=== PATIENT | female | born 1960 | race Caucasian/White ===

== ENCOUNTER 2017-12-10 12:19 | Inpatient (IN) | payer BC ==
[2017-12-10] MEDS ORDERED: Albuterol Sulfate 2.5 mg/3 ml Neb ONE ×2 (12:48→14:34)
[2017-12-10] MEDS ORDERED: Albuterol Sulfate 2.5 mg/0.5 ml Neb ONE ×2 (12:48→14:34)
--- NOTE | 2017-12-10 13:36 | PDOC.FPRHP ---
- History of Present Illness Chief Complaint: SOB, wheezing History of Present Illness: 57 yo F w/ PMH of asthma and DMII presents for acute exacerbation of asthma. Pt reports increased wheezing and sob starting on Sunday and progressively worsening throughout the week. She notes associated fever of 100.2, cough ( occasionally productive of brown tinged sputum), vertiginous type symptoms over the last day, decreased PO intake today, reports some nausea today. Also reports pain with deep inspiration (burning in quality) and pain with cough. She denies chest pain, vomiting, diarrhea, constipation. She has never been hospitalized for asthma in the past and only respiratory hospital admission was 2/2 H1N1 influenza several years ago. Only takes a rescue inhaler prn for asthma. ED Course: 600mg Clindamycin, 2gm mag sulfate, 200mg tessalon perles, azithromycin 500mg, 10mg decadron, 125mg solumedrol, Duonebs X3, albuterol x2. - Allergies/Adverse Reactions Allergies Allergy/AdvReac Type Severity Reaction Status Date / Time amoxicillin Allergy Verified 12/10/17 14:10 hydromorphone [From Dilaudid] Allergy Verified 12/10/17 14:10 morphine Allergy Verified 12/10/17 14:10 - Home Medications Medication Instructions Recorded Confirmed Type Albuterol Sulfate [Proair HFA] 2 puff INH Q4HR PRN 12/10/17 12/10/17 History HumaLOG [HumaLOG] 35 unit SC BID-WM PRN 12/10/17 12/10/17 History Insulin Glargine,Hum.Rec.Anlog 170 unit SQ QAM 12/10/17 12/10/17 History [Bell Castaneda] - History PMHx: Asthma, DMII PSHx: Tonsillectomy, appendectomy FHx: None Social: Denies tobacco, alcohol and drug use - Vital signs BP: 157/74 HR: 78-95 RR: 18-26 Tmax: 99.3 Pox: 93% on RA Wt: 113Kg - Physical Exam Constitutional: awake, alert and oriented HEENT: normocephalic and atraumatic, PERRLA, EOMI, conjunctiva clear, no scleral icterus, grossly normal vision, grossly normal hearing Neck: supple, trachea midline, no LAD, no JVD Chest: no-tender to palpation Heart: RRR, normal S1/S2, no murmurs/rubs/gallops Lungs: other (moderate respiratory distress, accessory mm use, diffuse rhonchi, end expiratory wheezes throughout, unable to communicate in complete sentences, moving air all lung cox) Abdomen: soft, non-tender, bowel sounds present Musculoskeletal: normal structure, ROM grossly normal Neurological: no focal deficit Skin: no rash/lesions, capillary refill <2 seconds, no jaundice Heme/Lymphatic: no unusual bruising or bleeding, no petechia -Psychiatric: Tearful, concerned about elevated blood sugar FMR H&P: Results - Radiology Interpretation Chest x-ray Status: image reviewed by me, report reviewed by me (No acute intrathroacic process) FMR H&P: A/P - Problem List (1) Acute respiratory failure with hypoxia Current Visit: Yes Status: Suspected Code(s): J96.01 - ACUTE RESPIRATORY FAILURE WITH HYPOXIA (2) Asthma exacerbation Current Visit: Yes Status: Ruled-out Code(s): J45.901 - UNSPECIFIED ASTHMA WITH (ACUTE) EXACERBATION (3) DMII (diabetes mellitus, type 2) Current Visit: Yes Status: Acute (4) Elevated blood pressure reading without diagnosis of hypertension Current Visit: Yes Status: Acute Code(s): R03.0 - ELEVATED BLOOD-PRESSURE READING, W/O DIAGNOSIS OF HTN (5) Elevated CK Current Visit: Yes Status: Acute - Plan 1) Acute hypoxic respiratory failure: Suspected. Admit IMCU, Likely 2/2 asthma exacerbation. Pt given mag sulfate, duonebs X4, albuterol nebs X2, solumedrol 125, decadron 10. Will Continue albuterol nebs jennifer q4hr and q2hr PRN. BiPap 2/2 increased wob. ABG pending. Solumedrol 60mg IV q6hr. Continue IV abx, concern for bronchitis. Check procal, chest XR negative for acute intrathoracic process. Pt has had decreased po intake over last 24 hours, IVNS bolus X1. IVF NS @ 150mls/hr 2) Asthma exacerbation: see #1 3) DMII: -Home meds continued, lantus @ 150UQAM, humalog 35U sc BID, Mod SSI, accucheck ACHS 4) Elevated CK: IVF NS 1L bolus, maintenance @ 150mls/hr 5) PPX: Tums prn and scds for GI and DVT ppx, respectively 6) Code status: Full code: pt wishes to be full code. Disposition/LOS: guarded, >/= 2 days FMR H&P: Upper Level - Pertinent history Code status: Full 57F with 5 day history of worsening productive cough, SOB, and dypsnea. She used her rescue inhaler 5 times over the course of Sunday afternoon, and used albuterol nebs q2h all day Sunday. She has had minimal PO intake since the weekend and is extremely fatigued. Her respiratory status acutely worsened this morning and she presented to [facility]. History of asthma that has been well controlled over the last 12 months with Pro-air. ED: clindamycin 600mg, Azithromycin 500mg, Magnesium 2g, Decadron 10mg, Solu- medrol 125mg, Duoneb x 8 - Pertinent findings Vitals: 157/74 mmHg 93 bpm 22 breaths/min 96% on RA 98.1F Physical Exam: Gen: moderate distress 2/2 breathing difficulties; obese Neck: supple; no LAD; trachea midline CV: RRR, no murmurs Pulm: scattered rhonchi; diffuse expiratory wheezes Abd: soft, non-TTP, non-distended; normal bowel sounds Skin: no lesions or rashes Neuro: no focal deficits; normal sensation - Plan Date/Time: 12/10/17 1333 1. Asthma exacerbation: admit inpatient/IMCU, duonebs q4h PRN and albuterol q2h PRN, steroids daily. Continue clindamycin and azithromycin. Patient has had poor PO intake for several day so we will bolus one liter with NS @ 150cc/hr maintenance. ABG pending and BiPAP once she get to the unit 2. DMII: continue home meds of Lantus 160u qAM, humalog 35 BID, SSI 3. CK: one liter fluid bolus with NS maintenance; recheck in the morning I, Nile Lozano, have evaluated this patient and agree with findings/plan as outlined by international student counselor resident. Pertinent changes/additions are listed here.
[2017-12-10 14:36] LABS: Base Excess (BEa) -0.3 mEq/L (0 (+/-) 2.5); CO2 Tension 38.1 mmHg (35.0-45.0); Hemoglobin (Hb) 13.1 g/dL (12.0-16.0); pH, Arterial 7.42 (7.35-7.45)
[2017-12-10 14:37] LABS: Analyzer IN Cardio ER; Calcium, Ionized 1.2 mmol/L (1.12-1.30); Puncture Site RBA
[2017-12-10] MEDS ORDERED: Ondansetron HCl/PF 4 MG/2 ML Vial IVP PRN ×2 (15:12→15:23)
[2017-12-10] MEDS ORDERED: Ondansetron ODT 4 MG TAB SL PRN (15:12)
[2017-12-10] MEDS ORDERED: Albuterol Sulfate 2.5 mg/3 ml Neb NEB PRN ×2 (15:13→15:23)
[2017-12-10] MEDS ORDERED: Dextrose 5% in Water 1,000 ML IV PRN (15:23)
[2017-12-10] MEDS ORDERED: Sodium Chloride 0.9% 1,000 ML IV SCH (15:23)
[2017-12-10] MEDS ORDERED: Ondansetron ODT 4 MG TAB PO PRN (15:23)
[2017-12-10] MEDS ORDERED: Dextrose 50% Abboject 50 ML SYRINGE SLOW IVP PRN (15:23)
[2017-12-10] MEDS ORDERED: HumaLOG 300 UNITS/3 ML VIAL SC PRN (15:23)
[2017-12-10 15:34] VITALS: BMI 45.0
[2017-12-10] MEDS: Sodium Chloride 0.9% 1,000 ML IV SCH ×2 (15:41→23:52)
--- NOTE | 2017-12-10 16:35 | HP ---
HISTORY OF PRESENT ILLNESS: I have reviewed the history and physical of Dr. Willie Chadwick and I espinal ve discussed the assessment and plan with him. I agree with his assessment and plan. I have also di scussed the case with Dr. Nile Lozano. Briefly, Ms. Bird is a 57-year-old white female patient with a history of asthma. She started beco carlos ill 2 days ago and has required almost q.2 hours daily use of her inhaler for the last 24 hours. She presented to the [facility] earlier this morning where she was given further D uoNeb treatments as well as intravenous steroids and intravenous magnesium. She failed to improve si gnificantly and was transported to our emergency room where she has subsequently been admitted. OBJECTIVE: VITAL SIGNS: Her blood pressure is 150/80, her heart rate is 95, respirations are 20. She is afebri le. GENERAL: This is a pleasant female, who is obese, middle-aged, but awake and alert. She does, howev er, appear tired. THROAT: No erythema or exudate. NECK: Supple. CARDIAC: Heart rhythm is regular without gallop or murmur noted. LUNGS: Diffuse expiratory wheezes. Some coarse rhonchi as well. Coarse rales. Use of accessory mu scles intermittently. Nearly continual cough and speaking in complete sentences due to shortness of breath. ABDOMEN: Flat and soft. No guarding, rebound or rigidity. EXTREMITIES: No edema. NEUROLOGIC: No focal deficits. LABORATORY DATA: ABG shows a pH 7.42, pCO2 of 38, pO2 of 178. No other labs available at this time. Chest x-ray shows no acute infiltrates. ASSESSMENT: Exacerbation of asthma. PLAN: Recommend transfer to MICU and begin BiPAP as the patient is still having difficulties despite 2 days of treatment. We will also discuss the case with Pulmonary Medicine and RT.
[2017-12-10] MEDS: HumaLOG 300 UNITS/3 ML VIAL SC SCH (17:07)
[2017-12-10 18:33] LABS: Legionella Urinary Ag Negative (Negative); Strep pneumo Urine Ag NEGATIVE (NEGATIVE)
[2017-12-10] MEDS: Albuterol Sulfate 2.5 mg/3 ml Neb NEB SCH ×2 (18:49→22:38)
[2017-12-11] MEDS: Albuterol Sulfate 2.5 mg/3 ml Neb NEB SCH ×6 (02:28→22:42)
[2017-12-11] MEDS: Sodium Chloride 0.9% 1,000 ML IV SCH ×3 (03:27→21:31)
[2017-12-11 05:57] LABS: Anion Gap 12 mmol/L (10-20); BUN (Urea Nitrogen) 13 mg/dL (9.8-20.1); Calc. Creatinine Clearance 166 mL/min (70-130); Calcium 8.2 mg/dL (7.8-10.44); Carbon Dioxide 22 mmol/L (22-29); Chloride 108 mmol/L (98-107); Estimated GFR-MDRD 81; Glucose 297 mg/dL (70-105); Sodium 138 mmol/L (136-145)
[2017-12-11 06:29] LABS: #Lymphocytes 1.4 thou/uL (1.20-3.40); #Monocytes 0.3 thou/uL (0.11-0.59); #Neutrophils 6.8 thou/uL (1.40-6.50); %Basophils 0.2 % (0.0-1.0); %Eosinophils 0.2 % (0.0-10.0); %Lymphocytes 16.2 % (21.0-51.0); %Monocytes 3.5 % (0.0-10.0); Hemoglobin 12.1 g/dL (12.0-16.0); Mean Corpuscular HGB CONC 32.5 g/dL (32.0-36.0); Mean Corpuscular Hemoglobin 29.1 pg (27.0-31.0); Mean Corpuscular Volume 89.5 fl (81.0-99.0); Mean Platelet Volume 8.2 fL (7.4-10.4); Platelet Count 232 thou/uL (130-400); RBC Distribution Width 13.3 % (11.5-14.5); Red Blood Cell (RBC) Count 4.15 mill/uL (4.20-5.40); White Blood Cell (WBC) Count 8.5 thou/uL (4.8-10.8)
[2017-12-11] MEDS: HumaLOG 300 UNITS/3 ML VIAL SC SCH ×2 (07:56→16:50)
[2017-12-11] MEDS: Azithromycin 500 MG in Sodium Chloride 0.9% 250 ML 250 ML IVPB SCH (07:57)
--- NOTE | 2017-12-11 08:13 | PDOC.FM ---
- Subjective Subjective: No acute events overnight. Pt remained on BiPAP overnight and was able to get some sleep. She reports she is feeling better from a respiratory standpoint. Does reports occasional nausea and persistent cough. Denies chest pain, but does report burning sensation in lungs. Overall, reports improvement from yesterday. - Objective Vital Signs & Weight: Vital Signs (12 hours) Temp Pulse Resp BP Pulse Ox 12/11/17 06:45 96 17 99 12/11/17 06:43 102 H 19 99 12/11/17 06:15 95 18 102/63 97 12/11/17 03:53 97.4 F L 97 13 154/72 H 100 12/11/17 02:28 94 17 98 12/11/17 02:04 94 16 160/70 H 99 12/11/17 00:05 97.5 F L 100 18 138/58 L 99 12/10/17 22:38 102 H 18 100 I&O: 12/10/17 12/11/17 12/12/17 06:59 06:59 06:59 Intake Total 2160 Output Total 250 Balance 1909 Result Diagrams: 12/11/17 04:57 12/11/17 04:57 <Willie Chadwick - Last Filed: 12/11/17 10:52> - Objective Vital Signs & Weight: Vital Signs (12 hours) Temp Pulse Resp BP Pulse Ox 12/11/17 15:46 97.6 F 91 20 146/78 H 100 12/11/17 15:37 93 18 99 12/11/17 12:40 97.5 F L 96 18 136/88 100 12/11/17 11:11 99 12/11/17 10:35 99 24 H 99 12/11/17 08:00 97.8 F 103 H 20 100 12/11/17 07:50 97.8 F 103 H 20 156/72 H 100 12/11/17 06:45 96 17 99 12/11/17 06:43 102 H 19 99 12/11/17 06:15 95 18 102/63 97 I&O: 12/10/17 12/11/17 12/12/17 06:59 06:59 06:59 Intake Total 2160 Output Total 250 Balance 1909 Result Diagrams: 12/11/17 04:57 12/11/17 04:57 <Samy Cohen - Last Filed: 12/11/17 16:58> Phys Exam - Physical Examination Constitutional: NAD BiPAP in place HEENT: PERRLA, moist MMs, sclera anicteric Neck: no nodes, no JVD Respiratory: no rales, no rhonchi, wheezing present inspiratory and expiratory wheezes, all lung cox BiPAP in place Cardiovascular: RRR, no significant murmur, no rub Gastrointestinal: soft, non-tender, no distention, positive bowel sounds Musculoskeletal: no edema, pulses present Neurological: non-focal, normal sensation, moves all 4 limbs Lymphatic: no nodes Skin: no rash, cap refill <2 seconds <Willie Chadwick - Last Filed: 12/11/17 10:52> Dx/Plan (1) Acute respiratory failure with hypoxia Code(s): J96.01 - ACUTE RESPIRATORY FAILURE WITH HYPOXIA Status: Suspected (2) Asthma exacerbation Code(s): J45.901 - UNSPECIFIED ASTHMA WITH (ACUTE) EXACERBATION Status: Ruled- out (3) DMII (diabetes mellitus, type 2) Status: Acute (4) Elevated blood pressure reading without diagnosis of hypertension Code(s): R03.0 - ELEVATED BLOOD-PRESSURE READING, W/O DIAGNOSIS OF HTN Status : Acute (5) Elevated CK Status: Acute - Plan Plan: 1) Acute hypoxic respiratory failure: Resolved. Remain in IMCU. 2/2 increased WOB, continued. 2) Asthma exacerbation: Acute, active. Pt given mag sulfate, duonebs X4, albuterol nebs X2, solumedrol 125, decadron 10. Will Continue albuterol nebs doris q4hr and q2hr PRN. ABG pH 7.42, pCO2 38, pO2 176. Solumedrol 60mg IV q6hr. Continue azithromycin abx, concern for bronchitis vs viral URI. Procal strep pneumo and legionella negative. Doris albuterol nebs and duonebs. BiPAP PRN. Tessalon perles for cough prn although cough likley 2/2 bronchospasm and hopefully improves with duonebs. 3) DMII: -Home meds continued, lantus @ 170UQAM, humalog 35U sc BID, Aggressive SSI, accucheck ACHS 4) Elevated CK: IVF NS 1L bolus, maintenance @ 150mls/hr. Cont IVF until pt respiratory status improves and tolerating PO. 5) PPX: Tums prn and scds for GI and DVT ppx, respectively 6) Code status: Full code: pt wishes to be full code. 7) Elevated BP: Cont to monitor, will need michelle or arb prior to d/c. <Willie Chadwick - Last Filed: 12/11/17 10:52> Attending Addendum - Attending Addendum Date/Time: 12/11/17 5432 I personally evaluated the patient and discussed the management with Dr. Chadwick. I agree with the History, Examination, Assessment and Plan documented above with any addition or exceptions noted below. She is improved since admission but tenuous in status. She may need bi-pap again today. <Samy Cohen - Last Filed: 12/11/17 16:58>
[2017-12-11] MEDS ORDERED: INSULIN GLARGINE SC SCH (09:00)
[2017-12-11] MEDS ORDERED: PRE FILLED SC SCH (09:00)
[2017-12-11] MEDS ORDERED: guaiFENesin/Dextromethorphan 10 ML UDCUP PO PRN (09:22)
[2017-12-11] MEDS: PRE FILLED SC SCH (09:29)
[2017-12-11] MEDS: INSULIN GLARGINE SC SCH (09:29)
[2017-12-11] MEDS ORDERED: Lisinopril 2.5 MG TAB PO SCH (10:45)
[2017-12-11] MEDS ORDERED: Lisinopril 5 MG TAB PO SCH (11:00)
[2017-12-11] MEDS: Benzonatate 100 MG CAP PO SCH ×3 (11:12→20:39)
[2017-12-11] MEDS: Guaifenesin DM 100-10/5 ML UDCUP PO PRN ×2 (11:12→21:37)
[2017-12-11] MEDS: HumaLOG 300 UNITS/3 ML VIAL SC PRN (11:23)
--- NOTE | 2017-12-11 17:17 | CON ---
DATE OF CONSULTATION: 12/11/2017 HISTORY OF PRESENT ILLNESS: Ms. Bird is a 57-year-old female I have seen many years ago. I reviewed old [facility] records and there are no records me seeing her here in the hospital. She did have a sleep study in 2006 here which showed that CPAP at 10 cm of water pressure eliminated her events. She presented with complaints of progressive shortness of breath and asthma. She says she has been in the hospital for several years with asthma and has been doing really well. She said she was exposed to some [employer] perfume which led to her bronchospasm. She has been using her inhaler every couple of hours prior to admission. She was transferred over from [place]. PAST MEDICAL HISTORY: Remarkable for diabetes, tonsillectomy, and appendectomy. She has been hospitalized in 2009 for H1N1. FAMILY HISTORY: Negative for lung disease in early age. SOCIAL HISTORY: She says she is not smoking. She denies daily alcohol use. ALLERGIES: She reports PENICILLIN, HYDROMORPHONE (Dilaudid allergies) and MORPHINE allergies. REVIEW OF SYSTEMS: Ten points otherwise negative. PHYSICAL EXAMINATION: GENERAL: She is afebrile, heart rate 96, respiratory rate 18, oximetry is 100 on 2 liters, blood pressure 136/88. HEENT: Pupils are equal. Sclerae is anicteric. She is able to talk in complete sentences. LUNGS: She had an excellent cough. She did have wheezes. I believe some of her wheezes were forced glottis closure. NECK: Supple HEART: Regular rhythm. ABDOMEN: Soft and nontender. EXTREMITIES: Without clubbing, cyanosis, or edema. LABORATORY DATA: White count 8.5, hemoglobin 12.1, platelets 232. Sodium 138, potassium 4, chloride 108, bicarbonate 22, BUN 13, creatinine 0.7. Chest radiograph showed no infiltrates. IMPRESSION: Asthma exacerbation. PLAN: Continue current care, started on inhaled steroids, provided a prescription for inhaled steroids when she gets out of here using her nebulizer. Hopefully, this will help keep her out of trouble. This is a 50-minute consult greater than 50% of the time was spent coordinating care. LAVERN
[2017-12-11] MEDS: Budesonide 0.5 MG/2 ML NEB INH SCH (20:16)
[2017-12-12] MEDS: Albuterol Sulfate 2.5 mg/3 ml Neb NEB SCH ×2 (03:18→06:31)
[2017-12-12] MEDS ORDERED: methylPREDNISolone Sod Succ/PF 125 MG/2 ML VIAL IVP SCH (03:45)
[2017-12-12] MEDS ORDERED: diphenhydrAMINE 50 MG/ML VIAL IVP SCH (03:45)
[2017-12-12] MEDS ORDERED: Famotidine/PF 20 mg/2ml Vial SLOW IVP SCH (03:45)
[2017-12-12] MEDS ORDERED: Ventilator Sedation Protocol 1 EACH FS ONE (04:06)
[2017-12-12] MEDS ORDERED: Fentanyl BOLUS 250 ML IVPB PRN (04:15)
[2017-12-12] MEDS ORDERED: fentaNYL Citrate/PF 2,000 MCG in Sodium Chloride 0.9% 60 ML IV SCH (04:15)
[2017-12-12] MEDS ORDERED: Propofol BOLUS 1,000 MG/100 ML VIAL IV PRN (04:15)
[2017-12-12] MEDS ORDERED: Morphine 4 MG/ML VIAL SLOW IVP PRN (04:15)
[2017-12-12] MEDS: Lorazepam 2 MG/ML VIAL SLOW IVP PRN ×4 (04:26→14:24)
--- NOTE | 2017-12-12 04:40 | PDOC.EVN ---
Event Note - Event Note Event Note: At approximately 0330, residents were notified of Mrs. Bird waking up and feeling like her throat was closing. Residents, accompanied by Attending Dr. Eldridge, at bedside to evaluate patient at approximately 0333. Patient had edematous uvula and was anxious appearing and in respiratory distress with mild tachypnea. She was also complaining that her chest was burning. Ordered STAT IV benadryl and IV solu-medrol 125 mg and IV pepcid. Patient was unable to control her secretions, despite being provided with suction. Anesthesia was paged for urgent intubation. Patient was moved to A3 on CCU. Dr. Pinto, anesthesiologist, arrived and successfully intubated patient. 2 U FFP was ordered prior to intubation to be infused stat. Sedation protocol ordered. It is thought that patient is likely experiencing angioedema secondary to ACEI use. Will notify on-call CCU physician of status change of patient this morning. <Marcus Hahn - Last Filed: 12/12/17 04:31> Attending Addendum - Attending Addendum Date/Time: 12/12/17 5296 I personally evaluated the patient and discussed the management with Dr. Hahn I agree with the History, Examination, Assessment and Plan documented above with any addition or exceptions noted below. Significant edema to oralpharynx and uvula. Unable to vocalize. Not able to protect airway. Reports tightness to throat and burning in chest. No prior episodes. Denied tightness in chest. Reports Hives to amoxicillin. Discussed need for intubation to protect her airway. Patient quickly agreed. IV steroids and antihistamines provided. Anesthesia called to provide airway support. Prior to intubation patient desat with coughing episode. Patient successfully intubated and placed on vent. Due to presentation presumed angioedema. Will provide 2 units FFP as added treatment. NSAIDs and ACEI held. Family notified. ABrayMD <Kendal Greene - Last Filed: 12/12/17 05:06>
[2017-12-12] MEDS: Sodium Chloride 0.9% 1,000 ML IV SCH ×2 (04:41→08:36)
[2017-12-12 05:06] LABS: Actual Bicarbonate (HCO3a) 21.3 mEq/L (22-26); Base Excess (BEa) -6.6 mEq/L (0 (+/-) 2.5); CO2 Tension 53.2 mmHg (35.0-45.0); Calcium, Ionized 1.1 mmol/L (1.12-1.30); Hematocrit-ABG 36.7 % (36.0-47.0); Hemoglobin (Hb) 11.8 g/dL (12.0-16.0); O2 Tension (PaO2) 450.6 mmHg (80.0-100.0); pH, Arterial 7.22 (7.35-7.45)
[2017-12-12 05:07] LABS: Puncture Site RBR
[2017-12-12] MEDS: Budesonide 0.5 MG/2 ML NEB INH SCH ×2 (06:30→18:20)
[2017-12-12] MEDS: Propofol 1,000 MG/100 ML VIAL IV PRN ×5 (06:31→17:53)
--- NOTE | 2017-12-12 08:00 | PDOC.FM ---
- Subjective Subjective: Patient is intubated and sedated. At around 0330 last night she was noted to have increased difficulty breathing and difficulty clearing her secretions. She was found to have enlarged swollen uvula and was intubated by anesthesia and moved to ICU from [facility]. She was treated for anaphylaxis with the exception of epi as well as 2 units FFP ordered for concern of angioedema 2/2 lisinopril use. - Objective MAR Reviewed: Yes Vital Signs & Weight: Vital Signs (12 hours) Temp Pulse Resp BP BP Pulse Ox 12/12/17 06:32 79 12/12/17 06:00 22 H 12/12/17 04:14 96 153/71 H 12/12/17 04:06 19 12/12/17 04:00 98.5 F 95 12/12/17 03:14 86 97 12/11/17 23:47 98.2 F 91 19 148/86 H 100 12/11/17 22:43 85 16 100 12/11/17 20:35 97.7 F 87 17 100 12/11/17 20:15 85 20 100 Weight Admit Weight 126.616 kg Most Recent Monitor Data Heart Rate from ECG 84 NIBP 126/78 NIBP BP-Mean 84 Respiration from ECG 22 SpO2 98 I&O: 12/11/17 12/12/17 12/13/17 06:59 06:59 06:59 Intake Total 2160 2531 Output Total 250 1300 Balance 1910 1231 Result Diagrams: 12/11/17 04:57 12/11/17 04:57 <Lisette Falcon - Last Filed: 12/12/17 09:51> - Objective Vital Signs & Weight: Vital Signs (12 hours) Temp Pulse Resp BP Pulse Ox 12/12/17 14:50 83 12/12/17 14:00 21 H 12/12/17 13:09 83 12/12/17 12:00 98.3 F 21 H 12/12/17 11:00 98.3 F 12/12/17 10:27 85 12/12/17 10:00 21 H 12/12/17 08:00 98.3 F 86 22 H 96 12/12/17 07:00 98.3 F 12/12/17 06:32 79 12/12/17 06:00 22 H 12/12/17 04:14 96 153/71 H 12/12/17 04:06 19 12/12/17 04:00 98.5 F 95 Weight Admit Weight 126.616 kg Weight 126.616 kg Most Recent Monitor Data Heart Rate from ECG 82 NIBP 131/57 NIBP BP-Mean 69 Respiration from ECG 18 SpO2 95 I&O: 12/11/17 12/12/17 12/13/17 06:59 06:59 06:59 Intake Total 2160 2531 Output Total 250 1300 560 Balance 1910 1231 -560 Result Diagrams: 12/11/17 04:57 12/11/17 04:57 <Heron Treviño - Last Filed: 12/12/17 15:22> Phys Exam - Physical Examination intubated and sedated, jerking her legs HEENT: moist MMs Respiratory: no wheezing, no rhonchi, clear to auscultation bilateral Cardiovascular: RRR, no significant murmur Gastrointestinal: soft, no distention, positive bowel sounds Musculoskeletal: no edema, pulses present Deviation from normal: no rashes, hives, urticaria <Lisette Falcon - Last Filed: 12/12/17 09:51> Dx/Plan (1) Angioedema Code(s): T78.3XXA - ANGIONEUROTIC EDEMA, INITIAL ENCOUNTER Status: Acute QualifierTitle: Encounter type: initial encounter Qualified Code(s): T78.3XXA - Angioneurotic edema, initial encounter Plan: -concern this is related to the lisinopril. -airway secured -cancel FFP -stop offending agent. -wean as able after 24 hours. (2) DMII (diabetes mellitus, type 2) Status: Chronic Plan: initiate tube feeds -continue insulin and start tube feeds -cont aggressive sliding scale insulin, expect elevated sugars iwht large doses of steroids in last 48 hours. (3) Asthma exacerbation Code(s): J45.901 - UNSPECIFIED ASTHMA WITH (ACUTE) EXACERBATION Status: Ruled- out Plan: -cont steroids -cont inhaled steroid -cont duonebs -cont azithromycin. - Plan Plan: DVT ppx: lovenox GI PPX: pepcid <Lisette Falcon - Last Filed: 12/12/17 09:51> Attending Addendum - Attending Addendum Date/Time: 12/12/17 1521 I personally evaluated the patient and discussed the management with team. I agree with and repeated the History, Examination, Assessment and Plan documented above with any addition or exceptions noted below. Lung protective ventilation, continue nebs/steroids. Hold FFP and d/c lisinopril. Goal sugars 140-180. Sedation vacations and ERT. <Heron Treviño - Last Filed: 12/12/17 15:22>
[2017-12-12] MEDS: HumaLOG 300 UNITS/3 ML VIAL SC SCH ×2 (08:35→17:53)
[2017-12-12] MEDS: Enoxaparin Sodium 40 MG/0.4 ML SYRINGE SC SCH (08:36)
[2017-12-12] MEDS: Benzonatate 100 MG CAP PO SCH ×3 (08:37→21:58)
[2017-12-12] MEDS: Azithromycin 500 MG in Sodium Chloride 0.9% 250 ML 250 ML IVPB SCH (08:50)
[2017-12-12] MEDS: PRE FILLED SC SCH (08:51)
[2017-12-12] MEDS: Famotidine/PF 20 mg/2ml Vial SLOW IVP SCH ×2 (08:51→21:57)
[2017-12-12] MEDS: INSULIN GLARGINE SC SCH (08:51)
[2017-12-12] MEDS ORDERED: Lisinopril 5 MG TAB PO SCH (09:00)
[2017-12-12 09:30] LABS: Actual Bicarbonate (HCO3a) 21.5 mEq/L (22-26); Analyzer IN Cardio ER; Base Excess (BEa) -3.6 mEq/L (0 (+/-) 2.5); CO2 Tension 38.6 mmHg (35.0-45.0); Calcium, Ionized 1.1 mmol/L (1.12-1.30); Hematocrit-ABG 34.1 % (36.0-47.0); Hemoglobin (Hb) 10.9 g/dL (12.0-16.0); O2 Tension (PaO2) 80.6 mmHg (80.0-100.0); Puncture Site RRA; pH, Arterial 7.36 (7.35-7.45)
[2017-12-12] MEDS: HumaLOG 300 UNITS/3 ML VIAL SC PRN (11:03)
--- NOTE | 2017-12-12 11:04 | RAD ---
PORTABLE CHEST: HISTORY: Post intubation. Asthma exacerbation. Shortness of breath. COMPARISON: 12/10/2017 FINDINGS: An ET tube has been placed, and the tip is above the vanessa and appears in adequate position. An NG tube is in place, and the tip is not visualized. There is cardiomegaly. Vascular engorgement. Perihilar infiltrates may represent edema. Small effu sions cannot be excluded. POS: [facility]
[2017-12-12] MEDS ORDERED: Lactated Ringer's 1,000 ML IV SCH (13:30)
--- NOTE | 2017-12-12 14:11 | CON ---
DATE OF CONSULTATION: 12/12/2017 INPATIENT CONSULT REASON FOR CONSULTATION: The patient was seen in consultation by Dr. Dyson for evaluation of upper a irway obstruction. BRIEF HISTORY: This is a 57-year-old female who came in presented with poorly controlled diabetes, h ypertension, history of asthma and acute airway situation. The patient was intubated approximately 3 :00 a.m. and has been treated for angioedema. Currently, she remains on the ventilator, doing well. Adequate cuff leak. PAST MEDICAL HISTORY: Diabetes, hypertension. PAST SURGICAL HISTORY: None. ALLERGIES: No known drug allergies. MEDICATIONS: See medication list. PHYSICAL EXAMINATION: GENERAL: Patient is moderately sedated in the ICU bed, responds to stimulus. ORAL CAVITY: Oropharynx is oral endotracheal tube as well as the orogastric tube present. No eviden ce of edema of the tongue, soft palate or pharyngeal structures. NECK: No lymphadenopathy, no masses. Supple. NASAL CAVITY: Slight septal deviation to the left. PROCEDURE: Topical anesthesia and decongestant applied in nasal cavity and flexible laryngoscopy was performed. The nasal cavity and nasopharynx are clear of lesions. The oropharyngeal and hypopharyn geal airway that was visualized remained within normal limits. She does have evidence of some redund ant tissue that will be compatible with her BMI, otherwise endotracheal tube is in appropriate place. The epiglottis showed no evidence of edema secondary to his secretions and presence of the endotrac heal tube and orogastric tube, the false vocal cords and true vocal cords were unable to be visualize d. ASSESSMENT: Upper airway obstruction, unknown etiology. I do not see any evidence of concerning ang ioedema of the tongue. The excess and redundant tissue that was seen in the hypopharynx and base of tongue area looked more consistent with a large BMI, however, I recommend possible extubation in the morning after removal of orogastric tube with the patient showing adequate indication for success and will be available if there are any concerns.
[2017-12-12] MEDS: Lactated Ringer's 1,000 ML IV SCH (14:21)
--- NOTE | 2017-12-12 16:11 | PRG ---
DATE OF SERVICE: 12/12/2017 SUBJECTIVE: Mr. Bird was intubated overnight. It was felt that she might have angioedema. I asked her Nose and Throat Surgery, Dr. Brock to look at her today. He did not find any evidence of upper airway obstruction or any evidence of angioedema . She does not have a prolonged expiratory phase with mechanical ventilation. I have decreased her ventilatory support. OBJECTIVE: LUNGS: Clear. HEART: Regular rhythm. ABDOMEN: Soft. EXTREMITIES: Without asymmetry. LABORATORY DATA: There is no new lab today. IMPRESSION: Status post intubation for respiratory distress. PLAN: Hopeful weaning in the morning. CRITICAL CARE TIME: Thirty minutes.
[2017-12-13] MEDS: Propofol 1,000 MG/100 ML VIAL IV PRN ×2 (00:30→02:45)
[2017-12-13] MEDS: Lactated Ringer's 1,000 ML IV SCH ×2 (04:09→09:12)
[2017-12-13 04:42] LABS: #Monocytes 1.1 thou/uL (0.11-0.59); #Neutrophils 9.5 thou/uL (1.40-6.50); %Basophils 0.2 % (0.0-1.0); %Eosinophils 0.2 % (0.0-10.0); %Lymphocytes 15.5 % (21.0-51.0); %Monocytes 9.1 % (0.0-10.0); %Neutrophils 75.1 % (42.0-75.0); Hemoglobin 12.1 g/dL (12.0-16.0); Mean Corpuscular Hemoglobin 28.5 pg (27.0-31.0); Mean Corpuscular Volume 89.2 fl (81.0-99.0); Mean Platelet Volume 7.9 fL (7.4-10.4); Platelet Count 222 thou/uL (130-400); RBC Distribution Width 13.6 % (11.5-14.5); Red Blood Cell (RBC) Count 4.24 mill/uL (4.20-5.40); White Blood Cell (WBC) Count 12.6 thou/uL (4.8-10.8)
[2017-12-13 04:52] LABS: Anion Gap 8 mmol/L (10-20); BUN (Urea Nitrogen) 16 mg/dL (9.8-20.1); Calc. Creatinine Clearance 180 mL/min (70-130); Carbon Dioxide 24 mmol/L (22-29); Chloride 113 mmol/L (98-107); Estimated GFR-MDRD 89; Glucose 131 mg/dL (70-105); Potassium 4.3 mmol/L (3.5-5.1); Sodium 141 mmol/L (136-145)
[2017-12-13] MEDS: Budesonide 0.5 MG/2 ML NEB INH SCH ×2 (06:21→18:28)
[2017-12-13 06:42] LABS: Actual Bicarbonate (HCO3a) 22.6 mEq/L (22-26); Base Excess (BEa) -2.5 mEq/L (0 (+/-) 2.5); CO2 Tension 40.1 mmHg (35.0-45.0); Hematocrit-ABG 37.5 % (36.0-47.0); Hemoglobin (Hb) 12.2 g/dL (12.0-16.0); O2 Tension (PaO2) 97.7 mmHg (80.0-100.0); pH, Arterial 7.37 (7.35-7.45)
[2017-12-13 06:43] LABS: ALV-art Gradient 208.675 (0-20); Calcium, Ionized 1.2 mmol/L (1.12-1.30); Puncture Site RRA
[2017-12-13] MEDS: HumaLOG 300 UNITS/3 ML VIAL SC SCH ×2 (08:17→17:42)
[2017-12-13] MEDS: Enoxaparin Sodium 40 MG/0.4 ML SYRINGE SC SCH (08:18)
[2017-12-13] MEDS: Benzonatate 100 MG CAP PO SCH ×3 (08:21→20:03)
[2017-12-13] MEDS: Azithromycin 500 MG in Sodium Chloride 0.9% 250 ML 250 ML IVPB SCH (08:21)
--- NOTE | 2017-12-13 09:00 | PDOC.FM ---
- Subjective Subjective: intubated and sedated. Not tolerating weaning from sedation. - Objective Vital Signs & Weight: Vital Signs (12 hours) Temp Pulse Resp BP Pulse Ox 12/13/17 07:53 97.8 F 70 15 97 12/13/17 07:00 97.8 F 12/13/17 06:25 64 12/13/17 06:00 14 12/13/17 04:00 98.3 F 20 12/13/17 02:38 65 139/68 12/13/17 02:00 14 12/13/17 00:00 97.7 F 22 H 12/12/17 22:16 75 159/76 H 12/12/17 22:00 20 Weight Admit Weight 126.616 kg Weight 126.616 kg Most Recent Monitor Data Heart Rate from ECG 70 NIBP 161/87 NIBP BP-Mean 132 Respiration from ECG 13 SpO2 97 I&O: 12/12/17 12/13/17 12/14/17 06:59 06:59 06:59 Intake Total 2531 3369 Output Total 1300 1650 50 Balance 1231 1719 -50 Result Diagrams: 12/13/17 03:33 12/13/17 03:33 <Lisette Falcon - Last Filed: 12/13/17 11:05> - Objective Vital Signs & Weight: Vital Signs (12 hours) Temp Pulse Resp Pulse Ox 12/13/17 14:39 78 12/13/17 14:30 78 19 95 12/13/17 12:00 94 L 12/13/17 11:00 98.2 F 12/13/17 09:59 84 26 H 93 L 12/13/17 09:55 87 24 H 95 12/13/17 09:26 76 12/13/17 08:00 17 12/13/17 07:53 97.8 F 70 15 97 12/13/17 07:00 97.8 F 12/13/17 06:25 64 12/13/17 06:00 14 12/13/17 04:00 98.3 F 20 Weight Admit Weight 126.616 kg Weight 126.616 kg Most Recent Monitor Data Heart Rate from ECG 76 NIBP 162/83 NIBP BP-Mean 127 Respiration from ECG 23 SpO2 97 I&O: 12/12/17 12/13/17 12/14/17 06:59 06:59 06:59 Intake Total 2538 3369 369 Output Total 7420 1650 690 Balance 1231 1719 -321 Result Diagrams: 12/13/17 03:33 12/13/17 03:33 <Heron Treviño - Last Filed: 12/13/17 15:00> Phys Exam - Physical Examination intubated HEENT: moist MMs Respiratory: no wheezing, no rales, no rhonchi, clear to auscultation bilateral Cardiovascular: RRR, no significant murmur Gastrointestinal: soft, non-tender, positive bowel sounds Musculoskeletal: no edema Skin: no rash <Lisette Falcon - Last Filed: 12/13/17 11:05> Dx/Plan (1) Asthma exacerbation Code(s): J45.901 - UNSPECIFIED ASTHMA WITH (ACUTE) EXACERBATION Status: Ruled- out Plan: -cont steroids -cont inhaled steroid -cont duonebs -cont azithromycin. improved. (2) Angioedema Code(s): T78.3XXA - ANGIONEUROTIC EDEMA, INITIAL ENCOUNTER Status: Suspected QualifierTitle: Encounter type: initial encounter Qualified Code(s): T78.3XXA - Angioneurotic edema, initial encounter Plan: -no evidence on laryngoscopy. - unclear at this time what caused her acute decompensation. -Likely an obstructive cause related to BMI. (3) DMII (diabetes mellitus, type 2) Status: Chronic Plan: cont home meds and aggressive SSI (4) Hypertension Code(s): I10 - ESSENTIAL (PRIMARY) HYPERTENSION Status: Acute Plan: Initiate amlodipine today. - Plan Plan: Unclear picture at this time. Will complete azithromycin course. extubate and see how she does to determine clinical course. avoid michelle-i since unclear if this could be related. <Lisette Falcon - Last Filed: 12/13/17 11:05> Attending Addendum - Attending Addendum Date/Time: 12/13/17 0847 I personally evaluated the patient and discussed the management with Dr. Falcon. I agree with and repeated the History, Examination, Assessment and Plan documented above with any addition or exceptions noted below. Has required less support from the vent, but becomes very agitated off sedation so unable to perform SBT. Will plan for trial of extubation if good cuff leak. Continue steroids and nebs. DVT/GI ppx. <Heron Treviño - Last Filed: 12/13/17 15:00>
[2017-12-13] MEDS: Famotidine/PF 20 mg/2ml Vial SLOW IVP SCH (09:10)
[2017-12-13] MEDS: INSULIN GLARGINE SC SCH (09:31)
[2017-12-13] MEDS: PRE FILLED SC SCH (09:31)
--- NOTE | 2017-12-13 13:31 | PRG ---
DATE OF SERVICE: 12/13/2017 SUBJECTIVE: She moves all of her extremities. PHYSICAL EXAMINATION: VITAL SIGNS: Her heart rates in the 80s, respiratory rate 20, oximetry is 94%-95%. LUNGS: Clear. HEART: Regular rhythm. ABDOMEN: Soft. EXTREMITIES: Without asymmetry. LABORATORY DATA: White count 12.6, hemoglobin 12.1, and platelets 222. Sodium 141, potassium 4.3, c hloride 113, bicarbonate 24, BUN 16, creatinine 0.6, pH 7.37, CO2 of 40, pO2 97. IMPRESSION: Status post intubation for? upper airway obstruction. Her ear, nose, and throat evaluat ion showed no evidence of any angioedema. Clinically, she has had no evidence of active asthma or br onchospasm. She has a very short exhale time and no audible wheezes. She has been successfully extu bated today without difficulty. Critical care time was 30 minutes.
[2017-12-13] MEDS ORDERED: hydrALAZINE 20 MG/ML VIAL SLOW IVP PRN (14:05)
[2017-12-13] MEDS ORDERED: Labetalol HCl 100 MG/20 ML VIAL SLOW IVP PRN (16:26)
[2017-12-13] MEDS ORDERED: Amlodipine 5 MG TAB PO SCH (16:30)
[2017-12-13] MEDS ORDERED: Lactated Ringer's 1,000 ML IV SCH (17:10)
[2017-12-13] MEDS: Famotidine 20 MG TAB PO SCH (20:03)
[2017-12-13] MEDS: Acetaminophen 325 MG TAB PO PRN (20:06)
[2017-12-14 04:37] LABS: Anion Gap 10 mmol/L (10-20); BUN (Urea Nitrogen) 19 mg/dL (9.8-20.1); Calc. Creatinine Clearance 178 mL/min (70-130); Calcium 8.3 mg/dL (7.8-10.44); Carbon Dioxide 26 mmol/L (22-29); Chloride 111 mmol/L (98-107); Estimated GFR-MDRD 87; Glucose 104 mg/dL (70-105); Potassium 4.4 mmol/L (3.5-5.1); Sodium 143 mmol/L (136-145)
[2017-12-14] MEDS: Budesonide 0.5 MG/2 ML NEB INH SCH ×2 (06:38→18:43)
[2017-12-14] MEDS ORDERED: predniSONE 20 MG TAB PO SCH (08:15)
[2017-12-14] MEDS: HumaLOG 300 UNITS/3 ML VIAL SC SCH ×2 (08:41→18:06)
[2017-12-14] MEDS: Famotidine 20 MG TAB PO SCH ×2 (08:43→20:39)
[2017-12-14] MEDS: Enoxaparin Sodium 40 MG/0.4 ML SYRINGE SC SCH (08:44)
[2017-12-14] MEDS: Amlodipine 5 MG TAB PO SCH (08:44)
[2017-12-14] MEDS: PRE FILLED SC SCH (08:48)
[2017-12-14] MEDS: INSULIN GLARGINE SC SCH (08:48)
[2017-12-14] MEDS: Azithromycin 500 MG in Sodium Chloride 0.9% 250 ML 250 ML IVPB SCH (08:48)
--- NOTE | 2017-12-14 08:52 | PDOC.FM ---
- Subjective Subjective: Patient doing better this morning. She is talking and more interactive than yesterday. Has tolerated dinner. She feels breathing is much improved. Sheis ready to try being up and out of bed. Has done well on nasal canula since extubation. - Objective MAR Reviewed: Yes Vital Signs & Weight: Vital Signs (12 hours) Temp Pulse Resp Pulse Ox 12/14/17 08:44 79 12/14/17 07:19 98.3 F 79 15 97 12/14/17 06:39 96 12/14/17 06:38 79 15 96 12/14/17 06:35 79 15 96 12/14/17 04:00 98.0 F 12/14/17 02:45 87 20 12/14/17 00:00 98.4 F 12/13/17 22:42 86 24 H 96 Weight Admit Weight 126.616 kg Weight 126.616 kg Most Recent Monitor Data Heart Rate from ECG 72 NIBP 150/63 NIBP BP-Mean 72 Respiration from ECG 15 SpO2 97 I&O: 12/13/17 12/14/17 12/15/17 06:59 06:59 06:59 Intake Total 3369 2280 Output Total 1650 3855 60 Balance 1719 -1575 -60 Result Diagrams: 12/13/17 03:33 12/14/17 03:22 <Lisette Falcon - Last Filed: 12/14/17 08:50> - Objective Vital Signs & Weight: Vital Signs (12 hours) Temp Pulse Resp Pulse Ox 12/14/17 08:44 79 12/14/17 08:00 98.7 F 12/14/17 07:19 98.3 F 79 15 97 12/14/17 06:39 96 12/14/17 06:38 79 15 96 12/14/17 06:35 79 15 96 12/14/17 04:00 98.0 F 12/14/17 02:45 87 20 12/14/17 00:00 98.4 F 12/13/17 22:42 86 24 H 96 Weight Admit Weight 126.616 kg Weight 126.616 kg Most Recent Monitor Data Heart Rate from ECG 89 NIBP 142/55 NIBP BP-Mean 70 Respiration from ECG 15 SpO2 95 I&O: 12/13/17 12/14/17 12/15/17 06:59 06:59 06:59 Intake Total 3369 2280 250 Output Total 1650 3855 150 Balance 1719 -1575 100 Result Diagrams: 12/13/17 03:33 12/14/17 03:22 <eHron Treviño - Last Filed: 12/14/17 09:30> Phys Exam - Physical Examination Constitutional: NAD HEENT: moist MMs Respiratory: no wheezing, no rales, no rhonchi, clear to auscultation bilateral Cardiovascular: RRR, no significant murmur Gastrointestinal: soft, non-tender, no distention, positive bowel sounds Musculoskeletal: no edema Neurological: non-focal, moves all 4 limbs Psychiatric: A&O x 3 Skin: cap refill <2 seconds <Lisette Falcon - Last Filed: 12/14/17 08:50> Dx/Plan (1) Asthma exacerbation Code(s): J45.901 - UNSPECIFIED ASTHMA WITH (ACUTE) EXACERBATION Status: Acute Plan: (2) Angioedema Code(s): T78.3XXA - ANGIONEUROTIC EDEMA, INITIAL ENCOUNTER Status: Suspected QualifierTitle: Encounter type: initial encounter Qualified Code(s): T78.3XXA - Angioneurotic edema, initial encounter Plan: (3) DMII (diabetes mellitus, type 2) Status: Chronic (4) Hypertension Code(s): I10 - ESSENTIAL (PRIMARY) HYPERTENSION Status: Chronic (5) Hyperlipidemia associated with type 2 diabetes mellitus Code(s): E11.69 - TYPE 2 DIABETES MELLITUS WITH OTHER SPECIFIED COMPLICATION; E78.5 - HYPERLIPIDEMIA, UNSPECIFIED Status: Chronic - Plan Plan: Asthma Exacerbation -12/07- admitted with symptoms c/w asthma exacerbation, given high dose IV steroids, several duonebs and was placed on bipap in IMCU. azithromycin initiated. -12/08 -Was given lisinopril (presumably for the first time), started on inhaled steroids. 12/09-299 acute airway obstruction with evidence of uvular swelling and concern for angioedema, was intubated by anesthesia and moved to ICU 12/10- laryngoscopy by ENT did not show evidence of angioedema nearly 12 hours after event. 12/11- extubated She is now doing much better. Will transition to daily oral steroid taper over 5 -7 days. Day # 5 of azithromycin- will D/C. Transition to telemetry and expect to D/C in next day or 2 as able to wean oxygen. Angioedema see above. recommend holding off on losartan for now. Will need to consider restarting at later time. DM II -cont home meds. -BG has been well controlled on aggressive SSI HTN -started on amlodipine -although not yet at goal, will cover with hydralazine for now -as asthma improved, restart home coreg. HLD -restart home statin. <Lisette Falcon - Last Filed: 12/14/17 08:50> Attending Addendum - Attending Addendum Date/Time: 12/14/17928 I personally evaluated the patient and discussed the management with Dr. Falcon. I agree with and repeated the History, Examination, Assessment and Plan documented above with any addition or exceptions noted below. Doing better this AM. Improved SOB, cough. No cp, n/v, f/c. Acute hypoxic respiratory failure 2/2 asthma exacerbation and angioedema -improved but still requiring O2 -Continue steroids, nebs -transfer to tele or IMCU <Heron Treviño - Last Filed: 12/14/17 09:30>
[2017-12-14] MEDS ORDERED: Non-Formulary Item 1 EACH (Carvedilol [Carvedilol] 12.5 MG) PO SCH (09:00)
[2017-12-14] MEDS: Multivitamin W/ Minerals 1 TAB PO SCH (09:56)
[2017-12-14] MEDS: Montelukast Sodium 10 mg Tablet PO SCH (09:56)
[2017-12-14] MEDS: Atorvastatin Calcium 40 MG TAB PO SCH (09:57)
[2017-12-14] MEDS: Alogliptin 25 MG TAB PO SCH (09:57)
[2017-12-14] MEDS: Benzonatate 100 MG CAP PO SCH ×3 (09:57→20:40)
[2017-12-14] MEDS: HumaLOG 300 UNITS/3 ML VIAL SC PRN (17:23)
[2017-12-14] MEDS: Acetaminophen 325 MG TAB PO PRN (19:12)
[2017-12-14] MEDS ORDERED: Chloraseptic Spray 180 ml Bottle PO PRN (19:19)
[2017-12-14] MEDS ORDERED: Ibuprofen 600 MG TAB PO PRN (19:20)
[2017-12-15 04:36] LABS: Anion Gap 8 mmol/L (10-20); BUN (Urea Nitrogen) 19 mg/dL (9.8-20.1); Calc. Creatinine Clearance 186 mL/min (70-130); Calcium 8.1 mg/dL (7.8-10.44); Carbon Dioxide 28 mmol/L (22-29); Chloride 109 mmol/L (98-107); Estimated GFR-MDRD Greater than 90; Sodium 141 mmol/L (136-145)
[2017-12-15 04:39] LABS: Glucose 48 mg/dL (70-105)
--- NOTE | 2017-12-15 06:09 | PDOC.FM ---
- Subjective Subjective: Patient states she slept well overnight, still with mild cough. NO fevers, chills, or sweats. Would like roberts out. - Objective Vital Signs & Weight: Vital Signs (12 hours) Temp Pulse Resp BP BP Pulse Ox 12/15/17 04:00 97.8 F 61 16 138/66 96 12/15/17 02:19 84 16 12/15/17 00:00 97.4 F L 73 16 150/70 H 96 12/14/17 23:02 94 16 12/14/17 23:00 80 20 12/14/17 20:40 98.2 F 71 16 98 12/14/17 18:47 98.2 F 71 16 147/67 H 98 12/14/17 18:43 84 20 Weight Admit Weight 126.616 kg Weight 126.616 kg Most Recent Monitor Data Heart Rate from ECG 87 NIBP 160/71 NIBP BP-Mean 99 Respiration from ECG 12 SpO2 93 I&O: 12/13/17 12/14/17 12/15/17 06:59 06:59 06:59 Intake Total 336 2280 116 Output Total 3681 6401 1590 Balance 1719 -1575 -429 Result Diagrams: 12/13/17 03:33 12/15/17 03:50 <Lee Iraheta - Last Filed: 12/15/17 07:56> - Objective Vital Signs & Weight: Vital Signs (12 hours) Temp Pulse Resp BP BP BP Pulse Ox 12/15/17 08:27 93 162/70 H 12/15/17 07:18 91 L 12/15/17 07:15 72 18 91 L 12/15/17 07:11 72 18 12/15/17 04:00 97.8 F 61 16 138/66 96 12/15/17 02:19 84 16 12/15/17 00:00 97.4 F L 73 16 150/70 H 96 12/14/17 23:02 94 16 12/14/17 23:00 80 20 Weight Admit Weight 279 lb 2.248 oz Weight 279 lb 2.24 oz Most Recent Monitor Data Heart Rate from ECG 87 NIBP 160/71 NIBP BP-Mean 99 Respiration from ECG 12 SpO2 93 I&O: 12/14/17 12/15/17 12/16/17 06:59 06:59 06:59 Intake Total 2280 1161 Output Total 3855 1590 Balance -1575 -429 Result Diagrams: 12/13/17 03:33 12/15/17 03:50 <José Luis Orozco - Last Filed: 12/15/17 09:42> Phys Exam - Physical Examination Constitutional: NAD HEENT: PERRLA, moist MMs mild expiratory wheezes bilaterally, no increased WOB Cardiovascular: RRR, no significant murmur Gastrointestinal: soft, non-tender, no distention, positive bowel sounds Musculoskeletal: no edema, pulses present Neurological: non-focal, moves all 4 limbs Psychiatric: normal affect, A&O x 3 Skin: no rash, cap refill <2 seconds <Lee Iraheta - Last Filed: 12/15/17 07:56> Dx/Plan (1) Asthma exacerbation Code(s): J45.901 - UNSPECIFIED ASTHMA WITH (ACUTE) EXACERBATION Status: Acute (2) DMII (diabetes mellitus, type 2) Status: Chronic (3) Hyperlipidemia associated with type 2 diabetes mellitus Code(s): E11.69 - TYPE 2 DIABETES MELLITUS WITH OTHER SPECIFIED COMPLICATION; E78.5 - HYPERLIPIDEMIA, UNSPECIFIED Status: Chronic (4) Hypertension Code(s): I10 - ESSENTIAL (PRIMARY) HYPERTENSION Status: Chronic (5) Acute respiratory failure with hypoxia Code(s): J96.01 - ACUTE RESPIRATORY FAILURE WITH HYPOXIA Status: Suspected (6) Angioedema Code(s): T78.3XXA - ANGIONEUROTIC EDEMA, INITIAL ENCOUNTER Status: Suspected QualifierTitle: Encounter type: initial encounter Qualified Code(s): T78.3XXA - Angioneurotic edema, initial encounter - Plan Plan: Asthma Exacerbation -12/07- admitted with symptoms c/w asthma exacerbation, given high dose IV steroids, several duonebs and was placed on bipap in IMCU. azithromycin initiated. -12/08 -Was given lisinopril (presumably for the first time), started on inhaled steroids. 12/09-299 acute airway obstruction with evidence of uvular swelling and concern for angioedema, was intubated by anesthesia and moved to ICU 12/10- laryngoscopy by ENT did not show evidence of angioedema nearly 12 hours after event. 12/11- extubated Stopped azithromycin after 5 day course This AM weaned O2 to 0, satting in 90s with wheezes ordered duoneb will re-check PT today, will monitor patient's O2 needs and tolerance of activity Angioedema see above. recommend holding off on losartan for now. Will need to consider restarting at later time. DM II -cont home meds. -BG has been well controlled on aggressive SSI - One low BG overnight, decreased to moderate SSI HTN -started on amlodipine -although not yet at goal, will cover with hydralazine for now -as asthma improved, restart home coreg. HLD -restart home statin. <Lee Iraheta - Last Filed: 12/15/17 07:56> Attending Addendum - Attending Addendum Date/Time: 12/15/17940 I personally evaluated the patient and discussed the management with Dr. Iraheta I agree with the History, Examination, Assessment and Plan documented above with any addition or exceptions noted below. Continue duonebs, oxygen as needed. <José Luis Orozco - Last Filed: 12/15/17 09:42>
[2017-12-15] MEDS: Budesonide 0.5 MG/2 ML NEB INH SCH (07:15)
[2017-12-15] MEDS ORDERED: predniSONE 20 MG TAB PO SCH ×3 (08:00)
[2017-12-15] MEDS: PRE FILLED SC SCH (08:22)
[2017-12-15] MEDS: INSULIN GLARGINE SC SCH (08:22)
[2017-12-15] MEDS: HumaLOG 300 UNITS/3 ML VIAL SC SCH (08:25)
[2017-12-15] MEDS: Enoxaparin Sodium 40 MG/0.4 ML SYRINGE SC SCH (08:25)
[2017-12-15] MEDS: Amlodipine 5 MG TAB PO SCH (08:27)
[2017-12-15] MEDS: Alogliptin 25 MG TAB PO SCH (08:27)
[2017-12-15] MEDS: Atorvastatin Calcium 40 MG TAB PO SCH (08:28)
[2017-12-15] MEDS: Montelukast Sodium 10 mg Tablet PO SCH (08:28)
[2017-12-15] MEDS: Multivitamin W/ Minerals 1 TAB PO SCH (08:28)
[2017-12-15] MEDS: Famotidine 20 MG TAB PO SCH (08:29)
[2017-12-15 08:33] VITALS: BP 162/70
[2017-12-15] MEDS ORDERED: Losartan 25 MG TAB PO SCH (09:00)
[2017-12-15] MEDS: Benzonatate 100 MG CAP PO SCH ×2 (09:56→15:39)
--- NOTE | 2017-12-15 11:52 | RAD ---
CHEST PA AND LATERAL: Date: 12/15/17 HISTORY: 57-year-old female with history of follow-up asthma exacerbation and cough. Follow-up on angioedema a nd congestion. COMPARISON: 12/12/17. FINDINGS: The endotracheal tube has been removed. Heart size is within normal limits. The lungs appear clear. IMPRESSION: No acute intrathoracic disease. POS: [facility]
[2017-12-15 12:04] VITALS: TEMP 97.9
--- NOTE | 2017-12-15 13:28 | PRG ---
DATE OF SERVICE: 12/15/2017 SUBJECTIVE: Juan Bird has no complaints. OBJECTIVE: VITAL SIGNS: She is afebrile, heart rate 93, blood pressure 160/70, respiratory rate is 20, and oxim etry is 96 on room air. LUNGS: Clear. IMPRESSION: 1. Status asthmaticus. 2. Status post intubation for respiratory distress. 3. ? uvula edema. There was no evidence of angioedema by ear, nose and throat evaluation. 4. Obesity. 5. Sleep apnea. She has CPAP at home. I would recommend discharge home. She could taper her predn isone over 2 weeks. She has a nebulizer at home. She should continue nebulized treatments till she is assured her asthma has resolved and then get back on her preventative medication.
--- NOTE | 2017-12-15 17:11 | PRG ---
DATE OF SERVICE: 12/14/2017 SUBJECTIVE: Ms. Bird did well overnight. She is in no distress. She is a little bit hoarse but h as no stridor. She says she is feeling great. OBJECTIVE: VITAL SIGNS: Heart rate 86 . ASSESSMENT: 1. 2. 3. Hypertension. 4. Obesity. PLAN: Transfer out to the Critical Care Unit. I would slowly taper her steroids given the severity of this event, which led to intubation.
--- NOTE | 2017-12-16 14:48 | DIS-2 ---
DATE OF ADMISSION: 12/10/2017 DATE OF DISCHARGE: 12/15/2017 RESIDENT: Dr. Lee Iraheta. ADMITTING ATTENDING: Michael Sorto MD. DISCHARGE ATTENDING: José Luis Orozco M.D. CONSULTATIONS: Pulmonology, Dr. Dyson. PROCEDURES: BiPAP, intubation. PRIMARY DIAGNOSIS: Acute respiratory failure secondary to asthma exacerbation. SECONDARY DIAGNOSES: Angioedema secondary to lisinopril, diabetes type 2, hypertension, hyperlipidem ia. DISCHARGE MEDICATIONS: Amlodipine 5 mg, Tessalon, budesonide, prednisone 40 mg taper, albuterol, Claude tus, Singulair, aspirin, losartan, Tradjenta, Coreg, atorvastatin, vitamin D, folic acid. DISCONTINUED MEDICATIONS: Lisinopril. HISTORY OF PRESENT ILLNESS AND HOSPITAL COURSE: A 57-year-old female with past medical history of as thma and diabetes type 2 who presented for acute exacerbation of asthma. The patient reported increa sed wheezing or shortness of breath which started 5 days before admission and progressively worsening throughout the week. She had a temperature of 100.2, cough, decreased oral intake, nausea. She had pain with deep inspiration and pain with cough. She denied chest pain, vomiting, diarrhea or consti pation. She had never been hospitalized for asthma in the past. Her only other hospital admission w as secondary to influenza. The patient was admitted to the hospital and placed on BiPAP, which she did well on. She was then st arted on lisinopril for high blood pressure and her diabetes. The patient was noted to have swelling which was quite impressive in the face and she reported increased shortness of breath. The patient ultimately had to be intubated. Laryngoscopy by ENT did not show evidence of angioedema 12 hours aft er the event. The patient was then extubated. The patient had a 5-day course of azithromycin while in the hospital. The patient remained on nasal cannula throughout the next night. By the time of jonas, the patient's O2 was weaned to 0 and was satting in the mid 90s. The patient was breathing comfortably reported no respiratory distress. She did not have cough at time of discharge. Patient stated that she was indeed anxious to return home. DISPOSITION: Stable. DISCHARGE INSTRUCTIONS: 1. Location: Home. 2. Diet: Regular. 3. Activity: As tolerated. 4. Follow with primary care provider. The patient should continue steroids for 2 weeks and return t o preventative care for asthma. Patient should avoid lisinopril in the future. Follow up as needed.
--- NOTE | 2017-12-17 12:15 | PRG ---
DATE OF SERVICE: 12/17/2017 SUBJECTIVE: Incompletely recorded. Ms. Bird did well overnight. She is in no distress. She is h oarse, but had no stridor. She had no vital signs instability overnight. OBJECTIVE: VITAL SIGNS: Heart rate was 86. She is afebrile, respiratory rate 22, oximetry is 95 on 3 liters, a nd blood pressure is 173/70. LUNGS: Clear. HEART: Regular rhythm. ABDOMEN: Soft. EXTREMITIES: Without clubbing, cyanosis, or edema. NEUROLOGIC: Nonfocal. IMPRESSION: 1. Asthma. 2. ? Angioedema. Ear, nose and throat surgery found no findings to confirm that this was angioedema . 3. Bronchitis. PLAN: Continue observation 1 more day and then possible discharge home.
== END 2017-12-15 16:14 | disposition home or self-care (01) | DRG 208 ==
LOC: ERS 12:19 → IMCU/EMU 15:17 → CCU 12-12 04:05 → ONC 12-14 14:00
PROVIDERS: ADMIT Family Medicine; ATTEND Family Medicine
PROC: 5A09357 Assistance with Respiratory Ventilation, Less than 24 Consecutive Hours, Continuous Positive Airway Pressure (ICD-10-PCS; 2017-12-10)
PROC: 5A1945Z Respiratory Ventilation, 24-96 Consecutive Hours (ICD-10-PCS; principal; 2017-12-12)
PROC: 0BH17EZ Insertion of Endotracheal Airway into Trachea, Via Natural or Artificial Opening (ICD-10-PCS; 2017-12-12)
PROC: 0CJS8ZZ Inspection of Larynx, Via Natural or Artificial Opening Endoscopic (ICD-10-PCS; 2017-12-12)
DX: J96.01 Acute respiratory failure with hypoxia (principal); J45.902 Unspecified asthma with status asthmaticus; Z68.42 Body mass index [BMI] 45.0-49.9, adult; E66.9 Obesity, unspecified; I10 Essential (primary) hypertension; T78.3XXA Angioneurotic edema, initial encounter; E11.69 Type 2 diabetes mellitus with other specified complication; E78.4 Other hyperlipidemia; G47.30 Sleep apnea, unspecified; Z88.5 Allergy status to narcotic agent; Z88.0 Allergy status to penicillin; Z79.82 Long term (current) use of aspirin; Z79.4 Long term (current) use of insulin; Z79.899 Other long term (current) drug therapy; T46.4X5A Adverse effect of angiotensin-converting-enzyme inhibitors, initial encounter; Y92.239 Unspecified place in hospital as the place of occurrence of the external cause
CPT/HCPCS: 36415; 36416; 36430; 71045; 71046; 80048; 82805; 83880; 84145; 85025; 86850; 86900; 86901; 87899; 94002; 94003; 94640; 94660; 94760; A4216; G8978-GP-CL; G8979-GP-CJ; J0360; J0456; J1650; J2060; J2704; J2920; J7050; J7506; J7611; J7620; J7626; S0028

== ENCOUNTER 2018-12-31 10:14 | Emergency (ER) | payer BC ==
[2018-12-31 10:51] LABS: #Basophils 0.1 thou/uL (0.0-0.2); #Eosinphils 0.3 thou/uL (0.0-0.7); #Lymphocytes 3.4 thou/uL (1.20-3.40); #Monocytes 0.9 thou/uL (0.11-0.59); #Neutrophils 6.6 thou/uL (1.40-6.50); %Basophils 0.9 % (0.0-1.0); %Eosinophils 2.2 % (0.0-10.0); %Monocytes 7.6 % (0.0-10.0); %Neutrophils 59.3 % (42.0-75.0); Hemoglobin 12.6 g/dL (12.0-16.0); Mean Corpuscular HGB CONC 32.6 g/dL (32.0-36.0); Mean Corpuscular Hemoglobin 29.1 pg (27.0-31.0); Mean Platelet Volume 8.3 fL (7.4-10.4); Platelet Count 273 thou/uL (130-400); RBC Distribution Width 13.5 % (11.5-14.5); Red Blood Cell (RBC) Count 4.35 mill/uL (4.20-5.40); White Blood Cell (WBC) Count 11.2 thou/uL (4.8-10.8)
--- NOTE | 2018-12-31 11:00 | RAD ---
Exam: Chest one view HISTORY:Syncope Comparison: 12/25/2017 FINDINGS: Cardiac silhouette: Normal Pulmonary vessels: Normal Costophrenic angles: Clear LUNGS: No masses or consolidation. Pneumothorax: None Osseous abnormalities: None IMPRESSION: No acute cardiopulmonary process.
[2018-12-31 11:13] LABS: ALT (SGPT) 19 U/L (8-55); AST (SGOT) 28 U/L (5-34); Albumin 3.8 g/dL (3.5-5.0); Alkaline Phosphatase 93 U/L (40-150); Anion Gap 13 mmol/L (10-20); BUN (Urea Nitrogen) 18 mg/dL (9.8-20.1); Bilirubin, Total 0.4 mg/dL (0.2-1.2); Calc. Creatinine Clearance 0 mL/min (70-130); Calcium 9.1 mg/dL (7.8-10.44); Carbon Dioxide 25 mmol/L (22-29); Chloride 99 mmol/L (98-107); Estimated GFR-MDRD 60; Globulin 3.1 g/dL (2.4-3.5); Glucose 275 mg/dL (70-105); Potassium 3.8 mmol/L (3.5-5.1); Protein, Total 6.9 g/dL (6.0-8.3); Sodium 133 mmol/L (136-145)
[2018-12-31] MEDS ORDERED: Meclizine HCl 25 MG TAB ONE (13:08)
--- NOTE | 2019-01-04 11:04 | EKG ---
Test Reason : WEAKNESS Blood Pressure : / mmHG Vent. Rate : 084 BPM Atrial Rate : 084 BPM P-R Int : 174 ms QRS Dur : 148 ms QT Int : 440 ms P-R-T Axes : 018 -03 -04 degrees QTc Int : 519 ms Normal sinus rhythm Right bundle branch block Inferior infarct , age undetermined Abnormal ECG Confirmed by NOAH BARRAZA ([id number]), editorial project manager SHAHBAZ OVIEDO ([id number]) on 01/04/2019 11:03:34 AM Referred By: Confirmed By:NOAH BARRAZA
== END 2018-12-31 14:37 | disposition home or self-care (01) ==
LOC: ERS 10:14
DX: N93.9 Abnormal uterine and vaginal bleeding, unspecified (principal); R42 Dizziness and giddiness; I25.10 Atherosclerotic heart disease of native coronary artery without angina pectoris; J45.909 Unspecified asthma, uncomplicated; E11.9 Type 2 diabetes mellitus without complications; Z79.4 Long term (current) use of insulin; I10 Essential (primary) hypertension; F32.9 Major depressive disorder, single episode, unspecified; Z79.899 Other long term (current) drug therapy; Z79.51 Long term (current) use of inhaled steroids; Z79.82 Long term (current) use of aspirin
CPT/HCPCS: 36416; 71045; 80053; 84484; 85025; 93005; 96360; J8499

== ENCOUNTER 2019-04-17 19:46 | Inpatient (IN) | payer BC ==
[2019-04-17 21:00] LABS: BHCG - Serum Negative (NEGATIVE); Pregs Control Background? CLEAR/WHITE (CLR/WHITE); Pregs Control Bar Appear? YES (CONTROL BAR)
[2019-04-17] MEDS ORDERED: Insulin Regular 300 UNITS/3 ML VIAL ONE (21:59)
[2019-04-17 22:32] LABS: Anion Gap 11 mmol/L (10-20); BUN (Urea Nitrogen) 9 mg/dL (9.8-20.1); Calc. Creatinine Clearance 0 mL/min (70-130); Carbon Dioxide 24 mmol/L (22-29); Chloride 104 mmol/L (98-107); Estimated GFR-MDRD 76; Glucose 322 mg/dL (70-105); Potassium 3.9 mmol/L (3.5-5.1); Sodium 135 mmol/L (136-145)
[2019-04-18 01:01] LABS: Lactic Acid 1.6 mmol/L (0.5-2.2)
[2019-04-18] MEDS ORDERED: Acetaminophen 325 MG TAB PO PRN (01:06)
[2019-04-18] MEDS ORDERED: Ondansetron PF 4 MG/2 ML Vial IVP PRN (01:06)
[2019-04-18] MEDS ORDERED: Ondansetron ODT 4 MG TAB SL PRN (01:06)
[2019-04-18 01:32] VITALS: BMI 44.4
[2019-04-18] MEDS ORDERED: Dextrose 5% in Water 1,000 ML IV PRN (07:25)
[2019-04-18] MEDS ORDERED: Dextrose 50% Abboject 50 ML SYRINGE SLOW IVP PRN (07:25)
[2019-04-18] MEDS ORDERED: HumaLOG 300 UNITS/3 ML VIAL SC PRN ×2 (07:25)
[2019-04-18] MEDS ORDERED: Benzonatate 100 MG CAP PO PRN ×2 (07:42→11:29)
[2019-04-18] MEDS ORDERED: Labetalol HCl 100 MG/20 ML VIAL SLOW IVP PRN (07:42)
[2019-04-18] MEDS ORDERED: Docusate 100 MG CAP PO PRN (07:42)
[2019-04-18] MEDS ORDERED: diphenhydrAMINE 25 MG CAP PO PRN (07:42)
[2019-04-18] MEDS ORDERED: cefTRIAXone Sodium 2 MG in Syringe 0 ML IVPB SCH (07:45)
[2019-04-18 08:23] LABS: #Eosinphils 0.2 thou/uL (0.0-0.7); #Lymphocytes 2.8 thou/uL (1.20-3.40); #Monocytes 0.7 thou/uL (0.11-0.59); #Neutrophils 6.1 thou/uL (1.40-6.50); %Basophils 0.3 % (0.0-1.0); %Eosinophils 1.8 % (0.0-10.0); %Lymphocytes 28.8 % (21.0-51.0); %Monocytes 6.6 % (0.0-10.0); %Neutrophils 62.5 % (42.0-75.0); Hemoglobin 12.9 g/dL (12.0-16.0); Mean Corpuscular HGB CONC 32.3 g/dL (32.0-36.0); Mean Corpuscular Hemoglobin 28.7 pg (27.0-31.0); Mean Corpuscular Volume 88.9 fL (78.0-98.0); Mean Platelet Volume 8.8 fL (7.4-10.4); Platelet Count 229 thou/uL (130-400); Red Blood Cell (RBC) Count 4.51 mill/uL (4.20-5.40); White Blood Cell (WBC) Count 9.7 thou/uL (4.8-10.8)
[2019-04-18 08:56] LABS: Anion Gap 12 mmol/L (10-20); BUN (Urea Nitrogen) 7 mg/dL (9.8-20.1); Calc. Creatinine Clearance 153 mL/min (70-130); Calcium 7.9 mg/dL (7.8-10.44); Carbon Dioxide 22 mmol/L (22-29); Chloride 103 mmol/L (98-107); Estimated GFR-MDRD 76; Glucose 312 mg/dL (70-105); Sodium 133 mmol/L (136-145)
[2019-04-18 09:25] LABS: Bilirubin Negative (Negative); Blood, Urine Negative (Negative); Clarity Clear (Clear); Glucose, Urine (Dipstick) Greater than 1000 mg/dL (Negative); Leukocyte 500 Leu/uL (Negative); Nitrite Negative (Negative); Protein, Urine (Dipstick) Negative (Neg-Trace); Urobilinogen Normal mg/dL (Less than 2); WBC/HPF Greater than 50 HPF (0-3)
[2019-04-18 09:36] LABS: Bacteria/HPF Rare-Few HPF (None Seen); RBC/HPF 0-3 HPF (0-3); Yeast-Budding Rare HPF (None Seen)
[2019-04-18 09:38] LABS: Urine Culture Reflex No No
[2019-04-18] MEDS: HumaLOG 300 UNITS/3 ML VIAL SC PRN ×2 (11:12→16:30)
--- NOTE | 2019-04-18 15:12 | PDOC.HHP ---
Hospitalist HPI - History of Present Illness DM foot wound and UTI History of Present Illness: 59-year-old female with past medical history of uncontrolled insulin-dependent diabetes mellitus with hemoglobin A1c and level of 14, hypertension, hyperlipidemia, COPD, and diabetic peripheral neuropathy presents with nonhealing diabetic foot wound and urinary tract infection. Patient does follow up with manager occupational who has been monitoring her every three months, the patient states that she was happy with her manager occupational because her A1c decrease from a level of 16 down to 14. The patient has been on several different novel medications for diabetes however she keeps getting return urinary tract infections and these medicines have to be stopped frequently. Patient is now on 170 units of to Toujeo QAM in addition to concentrated U500 insulin BID. Patient has left foot planter lesion that she has been soaking in water and vinegar several times a week. Patient has not seen wound care. Patient has not followed up with primary care physician on this wound regularly as she should have. Patient does not get regular eye exams. Patient does not get regular checkups and she attributes this to living remotely in [place]. Patient admitted to medical unit for further evaluation. Will obtain MRI of the lower extremity to rule out acute osteomyelitis. Patient states that the cellulitis has significantly improved of the past three days since she was started on antibiotics. Hospitalist ROS - Review of Systems All other systems reviewed; all pertinent +/- noted in HPI/Subj - Medication Medications: Active Medications Generic Name Dose Route Start Last Admin Trade Name Freq PRN Reason Stop Dose Admin Insulin Human Lispro 0 units 04/18/19 07:44 04/18/19 11:12 Humalog SC 10 unit .MODERATE SLIDING SC PRN Administration Moderate Correctional Scale Sodium Chloride 10 ml 04/18/19 09:00 04/18/19 07:58 Flush - Normal Saline IVF 10 ml Q12HR SONIA Administration Hospitalist History - Past Medical History Source: patient Cardiac: reports: HTN Pulmonary: reports: bronchitis, COPD, high cholesterol, hypertension, lung disease Endocrine: reports: Diabetes - Social History Alcohol: reports: None Drugs: reports: none Domestic Violence: Negative - Exam General Appearance: NAD, awake alert Eye: PERRL, anicteric sclera Eye - other findings: EOMI ENT: normocephalic atraumatic, no oropharyngeal lesions, moist mucosa Neck: supple, symmetric, no JVD, no lymphadenopathy Heart: RRR, no murmur, no gallops Respiratory: CTAB, no wheezes, no rales, no ronchi Gastrointestinal: soft, non-tender, non-distended, normal bowel sounds, no guarding, no rigidity Extremities: no edema Skin: no rashes Skin - other findings: Left foot plantar surface 1 cm dark DM foot ulcer, no sentation to feet Neurological: cranial nerve grossly intact, no weakness, no focal deficits Musculoskeletal: normal strength, generalized weakness Psychiatric: normal affect, A&O x 3 Hospitalist Results - Labs Result Diagrams: 04/18/19 07:55 04/18/19 07:55 Lab results: WBC 9.7 thou/uL (4.8-10.8) 04/18/19 07:55 Hgb 12.9 g/dL (12.0-16.0) 04/18/19 07:55 Hct 40.1 % (36.0-47.0) 04/18/19 07:55 MCV 88.9 fL (78.0-98.0) 04/18/19 07:55 Plt Count 229 thou/uL (130-400) 04/18/19 07:55 Neutrophils % 62.5 % (42.0-75.0) 04/18/19 07:55 Sodium 133 mmol/L (136-145) L 04/18/19 07:55 Potassium 4.0 mmol/L (3.5-5.1) 04/18/19 07:55 Chloride 103 mmol/L (98-107) 04/18/19 07:55 Carbon Dioxide 22 mmol/L (22-29) 04/18/19 07:55 BUN 7 mg/dL (9.8-20.1) L 04/18/19 07:55 Creatinine 0.77 mg/dL (0.6-1.1) 04/18/19 07:55 Glucose 312 mg/dL (70-105) H 04/18/19 07:55 Lactic Acid 1.6 mmol/L (0.5-2.2) 04/18/19 00:34 Calcium 7.9 mg/dL (7.8-10.44) 04/18/19 07:55 Urine Ketones 10 mg/dL (Negative) A 04/18/19 09:05 Urine Blood Negative (Negative) 04/18/19 09:05 Urine Nitrite Negative (Negative) 04/18/19 09:05 Ur Leukocyte Esterase 500 Anitha/uL (Negative) A 04/18/19 09:05 Urine RBC 0-3 HPF (0-3) 04/18/19 09:05 Urine WBC Greater than 50 HPF (0-3) A 04/18/19 09:05 Ur Squamous Epith Cells 4-6 HPF (0-3) A 04/18/19 09:05 Urine Bacteria Rare-Few HPF (None Seen) 04/18/19 09:05 - Radiology Interpretation Chest x-ray Status: image reviewed by me Other Status: image reviewed by me (Foot x ray) Hospitalist H&P A/P - Problem (1) DM foot ulcers Code(s): E11.621 - TYPE 2 DIABETES MELLITUS WITH FOOT ULCER; L97.509 - NON- PRESSURE CHRONIC ULCER OTH PRT UNSP FOOT W UNSP SEVERITY Status: Acute (2) DM type 2, uncontrolled, with neuropathy Code(s): E11.40 - TYPE 2 DIABETES MELLITUS WITH DIABETIC NEUROPATHY, UNSP; E11.65 - TYPE 2 DIABETES MELLITUS WITH HYPERGLYCEMIA Status: Acute (3) COPD (chronic obstructive pulmonary disease) Status: Acute (4) Hyperlipidemia associated with type 2 diabetes mellitus Code(s): E11.69 - TYPE 2 DIABETES MELLITUS WITH OTHER SPECIFIED COMPLICATION; E78.5 - HYPERLIPIDEMIA, UNSPECIFIED Status: Chronic (5) Hypertension Code(s): I10 - ESSENTIAL (PRIMARY) HYPERTENSION Status: Chronic - Plan Plan: Plan: medical/surgical unit broad-spectrum antibiotics with coverage for TI and diabetic foot ulcer patient is not been hospitalized greater than two midnights in the last several months, will not cover for nosocomial infection at this time urine culture blood culture de-escalate to culture and sensitivity MRI of the foot to rule out osteomyelitis consider infectious disease consultation pending above workup okay for patient to take her own long-acting insulin's okay for patient to take her own inhaled COPD medications continue home medications is able patient with diabetes mellitus severely uncontrolled with A1c greater than 14 patient will need improve compliance with outpatient primary care, endocrinology , and wound care to avoid future hospitalizations.
[2019-04-18] MEDS: cefTRIAXone\\ROCEPHIN 2 GM in Sodium Chloride 0.9% 100 ML IVPB SCH (16:29)
[2019-04-18] MEDS: Carvedilol 6.25 MG TAB PO SCH (19:47)
[2019-04-18] MEDS: Montelukast Sodium 10 mg Tablet PO SCH (19:47)
[2019-04-18] MEDS: Atorvastatin Calcium 40 MG TAB PO SCH (19:48)
[2019-04-18] MEDS: traMADol HCl 50 MG TAB PO PRN (19:49)
[2019-04-18] MEDS: Budesonide 0.5 MG/2 ML NEB NEB SCH (20:05)
[2019-04-19 04:39] LABS: #Basophils 0.1 thou/uL (0.0-0.2); #Eosinphils 0.3 thou/uL (0.0-0.7); #Lymphocytes 3.4 thou/uL (1.20-3.40); #Monocytes 0.8 thou/uL (0.11-0.59); #Neutrophils 5.9 thou/uL (1.40-6.50); %Basophils 0.8 % (0.0-1.0); %Eosinophils 2.8 % (0.0-10.0); %Lymphocytes 32.2 % (21.0-51.0); %Monocytes 7.6 % (0.0-10.0); %Neutrophils 56.6 % (42.0-75.0); Hemoglobin 13.5 g/dL (12.0-16.0); Mean Corpuscular HGB CONC 32.4 g/dL (32.0-36.0); Mean Corpuscular Hemoglobin 29.5 pg (27.0-31.0); Mean Corpuscular Volume 91.1 fL (78.0-98.0); Mean Platelet Volume 8.7 fL (7.4-10.4); Platelet Count 245 thou/uL (130-400); RBC Distribution Width 13.1 % (11.5-14.5); Red Blood Cell (RBC) Count 4.57 mill/uL (4.20-5.40); White Blood Cell (WBC) Count 10.5 thou/uL (4.8-10.8)
[2019-04-19 04:57] LABS: Anion Gap 11 mmol/L (10-20); BUN (Urea Nitrogen) 9 mg/dL (9.8-20.1); Calc. Creatinine Clearance 155 mL/min (70-130); Calcium 8.3 mg/dL (7.8-10.44); Carbon Dioxide 26 mmol/L (22-29); Chloride 102 mmol/L (98-107); Estimated GFR-MDRD 78; Glucose 271 mg/dL (70-105); Potassium 4.2 mmol/L (3.5-5.1); Sodium 135 mmol/L (136-145)
[2019-04-19] MEDS: HumaLOG 300 UNITS/3 ML VIAL SC PRN ×2 (06:26→21:06)
[2019-04-19] MEDS: Budesonide 0.5 MG/2 ML NEB NEB SCH ×2 (07:19→20:11)
[2019-04-19] MEDS: Aspirin 325 mg Enteric Coated Tablet PO SCH (07:52)
[2019-04-19] MEDS: Carvedilol 6.25 MG TAB PO SCH ×2 (07:52→21:00)
[2019-04-19] MEDS: Amlodipine 5 MG TAB PO SCH (07:52)
[2019-04-19] MEDS: Multivitamin W/ Minerals 1 TAB PO SCH (07:53)
[2019-04-19] MEDS: Clindamycin/D5W 900 MG in Premix Bag 1 BAG IVPB SCH ×2 (08:58→16:36)
[2019-04-19] MEDS ORDERED: Non-Formulary Item 1 EACH (Biotin/Keratin [Biotin Plus Keratin Tablet] 1 EACH) PO SCH (09:00)
[2019-04-19] MEDS ORDERED: Insulin Glargine 40 UNITS in Pre-Filled Syringe 1 EACH SC SCH (09:00)
--- NOTE | 2019-04-19 14:42 | PDOC.HOSPP ---
- Subjective Encounter Date: 04/19/19 Encounter Time: 14:37 Subjective: 59 y/o obese female with DM complicated with neuropathy, HTN, COPD admitted for evaluation of left non healing foot ulcer. Patient was noticed to have altered mental status of decreased responsiveness, slurred speech and weakness when she went to see Ortho for left shoulder pain/injury and was directed to the ER. Found in the Er to have hyperglycemia, ketonuria and lactic acidosis. Still complaining of left shoulder pain as well as abdominal pain. - Objective Vital Signs & Weight: Vital Signs (12 hours) Temp Pulse Resp BP Pulse Ox 04/19/19 08:00 94 L 04/19/19 07:52 82 04/19/19 07:25 98.2 F 82 20 145/78 H 94 L 04/19/19 07:19 86 14 98 Weight Admit Weight 275 lb Weight 275 lb I&O: 04/18/19 04/19/19 04/20/19 06:59 06:59 06:59 Intake Total 960 720 Balance 960 720 Result Diagrams: 04/19/19 04:17 04/19/19 04:17 Additional Labs: Accuchecks 04/19/19 04/19/19 04/18/19 11:23 04:43 19:42 POC Glucose 268 H 255 H 331 H 04/18/19 16:21 POC Glucose 266 H Hospitalist ROS - Medication Medications: Active Medications Generic Name Dose Route Start Last Admin Trade Name Freq PRN Reason Stop Dose Admin Albuterol/Ipratropium 3 ml 04/18/19 07:42 04/18/19 20:05 Duoneb NEB 3 ml Q4H PRN Administration SOB &/or Wheezing Amlodipine Besylate 5 mg 04/19/19 09:00 04/19/19 07:52 Norvasc PO 5 mg DAILY SONIA Administration Aspirin 325 mg 04/19/19 09:00 04/19/19 07:52 Ecotrin PO 325 mg DAILY SONIA Administration Atorvastatin Calcium 40 mg 04/18/19 21:00 04/18/19 19:48 Lipitor PO 40 mg HS SONIA Administration Budesonide 0.5 mg 04/18/19 18:30 04/19/19 07:19 Pulmicort Neb Solution NEB 0.5 mg BID-RT SONIA Administration Carvedilol 12.5 mg 04/18/19 21:00 04/19/19 07:52 Coreg PO 12.5 mg BID SONIA Administration Cholecalciferol 3,000 units 04/19/19 09:00 04/19/19 07:51 Vitamin D3 PO 3,000 units DAILY SONIA Administration Ceftriaxone Sodium 2 gm/ 100 mls @ 200 mls/hr 04/18/19 17:00 04/18/19 16:29 Sodium Chloride IVPB 100 mls 1700 SONIA Administration Clindamycin Phosphate/Dextrose 50 mls @ 100 mls/hr 04/19/19 09:00 04/19/19 08 :58 900 mg/ Device IVPB 50 mls 0100,0900,1700 SONIA Administration Iron/Minerals/Multivitamins 1 tab 04/19/19 09:00 04/19/19 07:53 Theragran M PO 1 tab DAILY SONIA Administration Montelukast Sodium 10 mg 04/18/19 21:00 04/18/19 19:47 Singulair PO 10 mg HS SONIA Administration Sertraline HCl 50 mg 04/19/19 09:00 04/19/19 07:52 Zoloft PO 50 mg QAM SONIA Administration Sodium Chloride 10 ml 04/18/19 09:00 04/19/19 07:53 Flush - Normal Saline IVF 10 ml Q12HR SONIA Administration Tramadol HCl 50 mg 04/18/19 15:19 04/18/19 19:49 Ultram PO 50 mg Q4H PRN Administration Moderate to Severe Pain (6-10) - Exam General Appearance: awake alert General - other findings: obese Eye: anicteric sclera ENT: normocephalic atraumatic Neck: symmetric, no JVD Heart: RRR Respiratory: no wheezes, no rales, no ronchi, normal chest expansion Gastrointestinal: soft, non-distended, normal bowel sounds Gastrointestinal - other findings: diffuse abdominal tenderness Extremities: no edema Extremities - other findings: Left lateral sole wound. Non tender and without erythema. L shoulder tender Neurological: cranial nerve grossly intact Neurological - other findings: dicreased sensation of lower extremities in a stocking pattern Musculoskeletal: generalized weakness Psychiatric: normal affect, A&O x 3 Hosp A/P (1) Sepsis Code(s): A41.9 - SEPSIS, UNSPECIFIED ORGANISM Status: Suspected (2) Acute encephalopathy Code(s): G93.40 - ENCEPHALOPATHY, UNSPECIFIED Status: Acute (3) UTI (urinary tract infection) Status: Acute (4) JORGE (acute kidney injury) Code(s): N17.9 - ACUTE KIDNEY FAILURE, UNSPECIFIED Status: Acute (5) Transient alteration of awareness Code(s): R40.4 - TRANSIENT ALTERATION OF AWARENESS Status: Acute (6) DM foot ulcers Code(s): E11.621 - TYPE 2 DIABETES MELLITUS WITH FOOT ULCER; L97.509 - NON- PRESSURE CHRONIC ULCER OTH PRT UNSP FOOT W UNSP SEVERITY Status: Acute (7) DM type 2, uncontrolled, with neuropathy Code(s): E11.40 - TYPE 2 DIABETES MELLITUS WITH DIABETIC NEUROPATHY, UNSP; E11.65 - TYPE 2 DIABETES MELLITUS WITH HYPERGLYCEMIA Status: Acute (8) Hypertension Code(s): I10 - ESSENTIAL (PRIMARY) HYPERTENSION Status: Chronic (9) Uncontrolled diabetes mellitus Code(s): E11.65 - TYPE 2 DIABETES MELLITUS WITH HYPERGLYCEMIA Status: Acute (10) Morbid obesity Code(s): E66.01 - MORBID (SEVERE) OBESITY DUE TO EXCESS CALORIES Status: Acute - Plan Add clindamycin to Rocephin for broader coverage of UTI and Diabetic foot infection. Continue insulin therapy. Change to aggressive sliding scale Awaiting MRI of left foot. Consult ortho. Continue other treatments. Analgesic as needed Monitor renal function and electrolytes.
--- NOTE | 2019-04-19 14:54 | MRI ---
MRI OF THE LEFT FOOT WITHOUT CONTRAST: CLINICAL HISTORY: Diabetic patient with left foot ulcer. COMPARISON: Reference is made to radiographs of left foot from the previous day's exam. FINDINGS: There is a focal area of signal alteration of the plantar soft tissues of the lateral forefoot underl jesse the fourth MTP joint. There is diffuse soft tissue edema. No focal marrow signal abnormality is present to indicate osteomyelitis. No drainable fluid collection to indicate abscess is seen. Ther e is scattered mild osteoarthritis. IMPRESSION: Diffuse soft tissue edema as well as findings of plantar soft tissue ulceration of the lateral forefo ot. No associated osteomyelitis evident by noncontrast imaging. Transcribed Date/Time: 04/19/2019 2:57 PM
[2019-04-19] MEDS: cefTRIAXone\\ROCEPHIN 2 GM in Sodium Chloride 0.9% 100 ML IVPB SCH (16:37)
[2019-04-19] MEDS: Montelukast Sodium 10 mg Tablet PO SCH (21:00)
[2019-04-19] MEDS: Atorvastatin Calcium 40 MG TAB PO SCH (21:00)
[2019-04-20] MEDS: Clindamycin/D5W 900 MG in Premix Bag 1 BAG IVPB SCH ×3 (00:28→16:42)
--- NOTE | 2019-04-20 01:26 | CON ---
DATE OF CONSULTATION: 04/19/2019 HISTORY OF PRESENT ILLNESS: Ms. Bird is a 59-year-old female, who was seen in my clinic on in [place], was noted to have some confusion, was concerned about her serum blood glucose. During that visit, she looks that she might lose conscious. Therefore, she is sent to the ED. The patient had a serum blood glucose of 550. She was transferred to [facility] for further care. She was seen in my office for left shoulder pain which she has had since January. She had a fall. The patient is uncontrolled diabetic. She is complaining of pain with any range of motion of her left shoulder. She is currently resting in bed. The patient is alert, oriented, and talking without difficulty. PHYSICAL EXAMINATION: VITAL SIGNS: 98.2, 82, 19, 94%, and blood pressure 154/78. GENERAL: Alert and oriented female, in no acute distress EXTREMITIES: Upper extremity, pain with overhead elevation. The patient is neurovascularly intact. She has tenderness with internal/external rotation, external rotation to 40 and forward flex to about 60. SKIN: The patient has no open wounds, no erythema, no obvious effusion. I did not see any cystic changes noted within her axilla or redness or streaking. IMPRESSION: Left shoulder pain, status post fall. ASSESSMENT AND PLAN: I will order an MRI of the patient's left shoulder, which we will attempt to do in the inpatient, but can be done as an outpatient. The patient is currently not a surgical candidate given her poor diabetic control. I am trying to ensure that she did not have a missed diagnosis such as a dislocation or something in that nature. We will follow the results in-house and follow along. Job ID: [id number]
[2019-04-20 05:36] LABS: #Eosinphils 0.2 thou/uL (0.0-0.7); #Lymphocytes 2.5 thou/uL (1.20-3.40); #Monocytes 0.7 thou/uL (0.11-0.59); #Neutrophils 4.3 thou/uL (1.40-6.50); %Basophils 0.5 % (0.0-1.0); %Eosinophils 2.4 % (0.0-10.0); %Lymphocytes 32.2 % (21.0-51.0); %Monocytes 9.2 % (0.0-10.0); %Neutrophils 55.7 % (42.0-75.0); Hemoglobin 12.3 g/dL (12.0-16.0); Mean Corpuscular HGB CONC 32.9 g/dL (32.0-36.0); Mean Corpuscular Hemoglobin 29.4 pg (27.0-31.0); Mean Corpuscular Volume 89.3 fL (78.0-98.0); Mean Platelet Volume 8.6 fL (7.4-10.4); Platelet Count 213 thou/uL (130-400); White Blood Cell (WBC) Count 7.6 thou/uL (4.8-10.8)
[2019-04-20 05:37] LABS: Hemoglobin A1c Greater than 14.0 % (4.0-6.0)
[2019-04-20 05:54] LABS: Anion Gap 11 mmol/L (10-20); BUN (Urea Nitrogen) 8 mg/dL (9.8-20.1); Calc. Creatinine Clearance 171 mL/min (70-130); Calcium 8.2 mg/dL (7.8-10.44); Carbon Dioxide 24 mmol/L (22-29); Chloride 106 mmol/L (98-107); Estimated GFR-MDRD 87; Glucose 196 mg/dL (70-105); Sodium 137 mmol/L (136-145)
[2019-04-20] MEDS: HumaLOG 300 UNITS/3 ML VIAL SC PRN ×4 (06:08→20:13)
[2019-04-20] MEDS: Budesonide 0.5 MG/2 ML NEB NEB SCH ×2 (06:37→18:39)
[2019-04-20] MEDS: Carvedilol 6.25 MG TAB PO SCH ×2 (08:16→20:12)
[2019-04-20] MEDS: Aspirin 325 mg Enteric Coated Tablet PO SCH (08:17)
[2019-04-20] MEDS: Multivitamin W/ Minerals 1 TAB PO SCH (08:17)
[2019-04-20] MEDS: Amlodipine 5 MG TAB PO SCH (08:17)
[2019-04-20] MEDS: TOUJEO SC SCH (08:18)
[2019-04-20] MEDS: HumaLOG 300 UNITS/3 ML VIAL SC SCH ×3 (08:34→15:59)
--- NOTE | 2019-04-20 12:54 | PDOC.HOSPP ---
- Subjective Encounter Date: 04/20/19 Encounter Time: 10:53 Subjective: 59 y/o obese female with DM complicated with neuropathy, HTN, COPD admitted for evaluation of left non healing foot ulcer. Patient was noticed to have altered mental status of decreased responsiveness, slurred speech and weakness when she went to see Ortho for left shoulder pain/injury and was directed to the ER. Found in the Er to have hyperglycemia, ketonuria and lactic acidosis. No new problem. Denied fever, nausea or vomiting. - Objective Vital Signs & Weight: Vital Signs (12 hours) Temp Pulse Resp BP BP Pulse Ox 04/20/19 11:43 98.8 F 83 18 112/64 96 04/20/19 08:17 70 112/68 04/20/19 08:16 112/68 04/20/19 08:00 97 04/20/19 07:19 98.2 F 78 16 112/68 97 04/20/19 06:37 85 16 100 04/20/19 04:59 97.3 F L 72 16 97 Weight Admit Weight 275 lb Weight 275 lb I&O: 04/19/19 04/20/19 04/21/19 06:59 06:59 06:59 Intake Total 960 1080 240 Balance 960 1080 240 Result Diagrams: 04/20/19 05:21 04/20/19 05:21 Additional Labs: Accuchecks 04/20/19 04/20/19 04/19/19 11:07 04:59 20:15 POC Glucose 269 H 196 H 305 H 04/19/19 16:08 POC Glucose 225 H Hospitalist ROS - Medication Medications: Active Medications Generic Name Dose Route Start Last Admin Trade Name Freq PRN Reason Stop Dose Admin Albuterol/Ipratropium 3 ml 04/18/19 07:42 04/20/19 06:39 Duoneb NEB 3 ml Q4H PRN Administration SOB &/or Wheezing Amlodipine Besylate 5 mg 04/19/19 09:00 04/20/19 08:17 Norvasc PO 5 mg DAILY SONIA Administration Aspirin 325 mg 04/19/19 09:00 04/20/19 08:17 Ecotrin PO 325 mg DAILY SONIA Administration Atorvastatin Calcium 40 mg 04/18/19 21:00 04/19/19 21:00 Lipitor PO 40 mg HS SONIA Administration Budesonide 0.5 mg 04/18/19 18:30 04/20/19 06:37 Pulmicort Neb Solution NEB 0.5 mg BID-RT SONIA Administration Carvedilol 12.5 mg 04/18/19 21:00 04/20/19 08:16 Coreg PO 12.5 mg BID SONIA Administration Cholecalciferol 3,000 units 04/19/19 09:00 04/20/19 08:15 Vitamin D3 PO 3,000 units DAILY SONIA Administration Ceftriaxone Sodium 2 gm/ 100 mls @ 200 mls/hr 04/18/19 17:00 04/19/19 16:37 Sodium Chloride IVPB 100 mls 1700 SONIA Administration Clindamycin Phosphate/Dextrose 50 mls @ 100 mls/hr 04/19/19 09:00 04/20/19 08 :00 900 mg/ Device IVPB 50 mls 0100,0900,1700 SONIA Administration Insulin Human Lispro 0 units 04/19/19 14:35 04/20/19 11:20 Humalog SC 9 unit .AGGRESSIVE SLIDING PRN Administration Aggressive Correctional Scale Insulin Human Lispro 0 units 04/19/19 14:35 04/19/19 21:06 Humalog SC 4 unit .BEDTIME SLIDING SC PRN Administration Bedtime Correctional Scale Iron/Minerals/Multivitamins 1 tab 04/19/19 09:00 04/20/19 08:17 Theragran M PO 1 tab DAILY SONIA Administration Montelukast Sodium 10 mg 04/18/19 21:00 04/19/19 21:00 Singulair PO 10 mg HS SONIA Administration Toujeo (Insulin 0 each 04/20/19 09:00 04/20/19 08:18 Glargine) SC 1 each QAM SONIA Administration Sertraline HCl 50 mg 04/19/19 09:00 04/20/19 08:17 Zoloft PO 50 mg QAM SONIA Administration Sodium Chloride 10 ml 04/18/19 09:00 04/20/19 08:00 Flush - Normal Saline IVF 10 ml Q12HR SONIA Administration Tramadol HCl 50 mg 04/18/19 15:19 04/18/19 19:49 Ultram PO 50 mg Q4H PRN Administration Moderate to Severe Pain (6-10) - Exam General Appearance: awake alert General - other findings: obese Eye: anicteric sclera ENT: normocephalic atraumatic, moist mucosa Neck: supple Heart: RRR Respiratory: no wheezes, no rales, no ronchi, normal chest expansion Gastrointestinal: soft, non-distended, normal bowel sounds Gastrointestinal - other findings: mild diffiuse tenderness Extremities: no edema Extremities - other findings: Left shoulder tenderness and decreased ROM. L foot plantar wound Neurological: cranial nerve grossly intact Psychiatric: normal affect, A&O x 3 Hosp A/P (1) Sepsis Code(s): A41.9 - SEPSIS, UNSPECIFIED ORGANISM Status: Suspected (2) Acute encephalopathy Code(s): G93.40 - ENCEPHALOPATHY, UNSPECIFIED Status: Acute (3) UTI (urinary tract infection) Status: Acute (4) JORGE (acute kidney injury) Code(s): N17.9 - ACUTE KIDNEY FAILURE, UNSPECIFIED Status: Acute (5) Transient alteration of awareness Code(s): R40.4 - TRANSIENT ALTERATION OF AWARENESS Status: Acute (6) DM foot ulcers Code(s): E11.621 - TYPE 2 DIABETES MELLITUS WITH FOOT ULCER; L97.509 - NON- PRESSURE CHRONIC ULCER OTH PRT UNSP FOOT W UNSP SEVERITY Status: Acute (7) DM type 2, uncontrolled, with neuropathy Code(s): E11.40 - TYPE 2 DIABETES MELLITUS WITH DIABETIC NEUROPATHY, UNSP; E11.65 - TYPE 2 DIABETES MELLITUS WITH HYPERGLYCEMIA Status: Acute (8) Hypertension Code(s): I10 - ESSENTIAL (PRIMARY) HYPERTENSION Status: Chronic (9) Uncontrolled diabetes mellitus Code(s): E11.65 - TYPE 2 DIABETES MELLITUS WITH HYPERGLYCEMIA Status: Acute (10) Morbid obesity Code(s): E66.01 - MORBID (SEVERE) OBESITY DUE TO EXCESS CALORIES Status: Acute (11) Left shoulder pain Code(s): M25.512 - PAIN IN LEFT SHOULDER Status: Acute - Plan Continue clindamycin to Rocephin Add meal time humalog 8 units to aggressive sliding scale. Continue Tujeo Continue other treatments. Analgesic as needed Monitor renal function and electrolytes. Consult Podiatry
[2019-04-20] MEDS: cefTRIAXone\\ROCEPHIN 2 GM in Sodium Chloride 0.9% 100 ML IVPB SCH (16:43)
[2019-04-20] MEDS: Montelukast Sodium 10 mg Tablet PO SCH (20:12)
[2019-04-20] MEDS: Atorvastatin Calcium 40 MG TAB PO SCH (20:12)
[2019-04-21] MEDS: Clindamycin/D5W 900 MG in Premix Bag 1 BAG IVPB SCH ×3 (00:49→16:22)
[2019-04-21 05:26] LABS: Anion Gap 11 mmol/L (10-20); BUN (Urea Nitrogen) 9 mg/dL (9.8-20.1); Calc. Creatinine Clearance 166 mL/min (70-130); Calcium 8.2 mg/dL (7.8-10.44); Carbon Dioxide 21 mmol/L (22-29); Chloride 108 mmol/L (98-107); Estimated GFR-MDRD 84; Glucose 183 mg/dL (70-105); Potassium 4.3 mmol/L (3.5-5.1); Sodium 136 mmol/L (136-145)
[2019-04-21] MEDS: HumaLOG 300 UNITS/3 ML VIAL SC PRN ×2 (05:29→11:36)
[2019-04-21 05:40] LABS: #Basophils 0.1 thou/uL (0.0-0.2); #Eosinphils 0.2 thou/uL (0.0-0.7); #Lymphocytes 2.1 thou/uL (1.20-3.40); #Monocytes 0.7 thou/uL (0.11-0.59); #Neutrophils 3.2 thou/uL (1.40-6.50); %Basophils 0.9 % (0.0-1.0); %Eosinophils 2.9 % (0.0-10.0); %Lymphocytes 33.2 % (21.0-51.0); %Monocytes 11.1 % (0.0-10.0); %Neutrophils 51.9 % (42.0-75.0); Mean Corpuscular HGB CONC 28.4 g/dL (32.0-36.0); Mean Corpuscular Hemoglobin 26.6 pg (27.0-31.0); Mean Corpuscular Volume 93.6 fL (78.0-98.0); Mean Platelet Volume 9.3 fL (7.4-10.4); Platelet Count 147 thou/uL (130-400); RBC Distribution Width 13.3 % (11.5-14.5); Red Blood Cell (RBC) Count 3.38 mill/uL (4.20-5.40); White Blood Cell (WBC) Count 6.2 thou/uL (4.8-10.8)
[2019-04-21 05:42] LABS: Platelet Morphology Comment Appears Adequate; RBC Morphology Normal
[2019-04-21] MEDS: Budesonide 0.5 MG/2 ML NEB NEB SCH (06:19)
[2019-04-21] MEDS: traMADol HCl 50 MG TAB PO PRN (06:47)
[2019-04-21] MEDS: Aspirin 325 mg Enteric Coated Tablet PO SCH (07:57)
[2019-04-21] MEDS: Amlodipine 5 MG TAB PO SCH (07:58)
[2019-04-21] MEDS: Carvedilol 6.25 MG TAB PO SCH (07:58)
[2019-04-21] MEDS: HumaLOG 300 UNITS/3 ML VIAL SC SCH ×3 (07:59→16:24)
[2019-04-21] MEDS: Multivitamin W/ Minerals 1 TAB PO SCH (07:59)
[2019-04-21] MEDS: TOUJEO SC SCH (07:59)
[2019-04-21 08:42] VITALS: BP 128/76; TEMP 98.2
[2019-04-21] MEDS ORDERED: Acetaminophen 500 MG TAB PO PRN (13:08)
--- NOTE | 2019-04-21 14:55 | CON ---
DATE OF CONSULTATION: 04/21/2019 CHIEF COMPLAINT: Left shoulder pain. HISTORY OF PRESENT ILLNESS: Ms. Bird is a 59-year-old female with left shoulder pain. The patient stated that the new MRI scanner here in the hospital could not fit. CT scan was ordered but was noted she has had an iodine allergy, so it was canceled. The patient is currently resting in bed, no acute distress, noted for elevated serum blood glucose and a foot ulcer. PHYSICAL EXAMINATION: GENERAL: The patient is afebrile, in no acute distress. EXTREMITIES: Upper extremity pain with any passive or active motion of her left shoulder. Exam unchanged. IMPRESSION: Left shoulder pain. ASSESSMENT AND PLAN: Plan will be to have the patient have an MRI as an outpatient. I would like to send her to [facility] which has a larger scanner and like to get the information from the MRI for any further interventions. The patient also must have her diabetes better controlled before any surgical intervention could be considered. The patient will follow up as an outpatient. Job ID: [id number]
[2019-04-21] MEDS: cefTRIAXone\\ROCEPHIN 2 GM in Sodium Chloride 0.9% 100 ML IVPB SCH (16:22)
--- NOTE | 2019-04-22 01:44 | DIS ---
DATE OF ADMISSION: 04/18/2019 DATE OF DISCHARGE: 04/21/2019 DISCHARGE DIAGNOSES: 1. Diabetic left foot ulcer. 2. Diabetes mellitus type 2, uncontrolled with peripheral neuropathy. 3. Acute encephalopathy secondarily to #2, resolved. 4. Sepsis secondary to #1, resolved. 5. Acute kidney injury, resolved. 6. Hypertension, stable. 7. Morbid obesity. 8. Left shoulder pain. CONSULTATIONS: Dr. Castellanos with Orthopedic Surgery Service. PERTINENT LABORATORY AND X-RAY FINDINGS: Creatinine ranged between 0.69 to 1.15. Estimated GFR ranged between 76 to 87. Hemoglobin A1c greater than 14. CBC showed a white blood cell count ranging between 6.2 to 10.5, hemoglobin ranged between 9.0 to 13.5. Urine culture dated 04/17/2019, showed 25,000 to 50,000 colonies of mixed skin ele including yeast species. Blood cultures x2 dated 04/17/2019, showed no growth at 48 hours. MRI of the left foot dated 04/18/2019, showed diffuse soft tissue edema without evidence of osteomyelitis. Portable chest x-ray dated 04/17/2019, showed no acute cardiopulmonary process. Three views of the left foot dated 04/17/2019, showed no acute process. HOSPITAL COURSE: The patient was initially admitted after presenting with sepsis picture likely due to uncontrolled diabetes and left diabetic foot ulcer. The patient was placed on broad-spectrum antibiotic therapy and evaluated by the Wound Care Service. The patient underwent local wound care with dressing changes to the left foot with MRI imaging of the left foot obtained to ruling out osteomyelitis. The patient was noted with uncontrolled diabetes mellitus with hemoglobin A1c greater than 14. Current recommendations are for tighter glycemic control and local wound care to the left foot. The patient was evaluated by the Orthopedic Surgery Service due to the left shoulder pain. Current recommendations are for outpatient MRI imaging after discharge. The patient continued on IV antibiotic therapy to include Rocephin and clindamycin, tolerating without complication. I have examined the patient at the time of discharge and discussed followup instructions. The patient verbalized understanding and in agreement, ready for discharge on 04/21/2019. DISCHARGE MEDICATIONS: 1. Clindamycin 300 mg p.o. q.6 hours x7 days. 2. Enteric-coated aspirin 325 mg p.o. daily. 3. Lipitor 40 mg p.o. daily. 4. Carvedilol 12.5 mg p.o. b.i.d. 5. Vitamin D3 of 3000 units p.o. daily. 6. Folic acid one tablet p.o. daily. 7. Humalog 45 units subcutaneously a.c. and at bedtime. 8. Toujeo SoloSTAR 170 units subcutaneously daily. 9. Tradjenta 5 mg p.o. daily. 10. Singulair 10 mg p.o. at bedtime. 11. Zoloft 50 mg p.o. q.a.m. 12. Ventolin nebulized solution 2.5 mg nebulized q.6 hours p.r.n. 13. Norvasc 5 mg p.o. daily. 14. Pulmicort 0.5 mg nebulized b.i.d. FOLLOWUP: The patient may follow up with Dr. Jacobs within 7 days of discharge. CONDITION ON DISCHARGE: Stable. ACTIVITY: Ad-cass. DIET: ADA and heart healthy. CODE STATUS: Full. SPECIAL INSTRUCTIONS: Continue Home Health services including wound care after discharge. DISPOSITION: Home on 04/21/2019. TIME SPENT: Total time preparing and coordinating discharge 32 minutes. Job ID: [id number]
[2019-04-22] MEDS ORDERED: Alogliptin 25 MG TAB PO SCH (09:00)
== END 2019-04-21 18:19 | disposition home health service (06) | DRG 871 ==
LOC: ERS 19:46 → T4-A 04-18 00:23
PROVIDERS: ADMIT Hospitalist; ATTEND Hospitalist
DX: A41.9 Sepsis, unspecified organism (principal); G93.41 Metabolic encephalopathy; N39.0 Urinary tract infection, site not specified; E87.2 Acidosis; Z68.41 Body mass index [BMI] 40.0-44.9, adult; N17.9 Acute kidney failure, unspecified; E11.621 Type 2 diabetes mellitus with foot ulcer; L97.529 Non-pressure chronic ulcer of other part of left foot with unspecified severity; I10 Essential (primary) hypertension; J44.9 Chronic obstructive pulmonary disease, unspecified; E78.00 Pure hypercholesterolemia, unspecified; E11.65 Type 2 diabetes mellitus with hyperglycemia; E11.69 Type 2 diabetes mellitus with other specified complication; E78.5 Hyperlipidemia, unspecified; E66.01 Morbid (severe) obesity due to excess calories; M25.512 Pain in left shoulder; R82.4 Acetonuria; E11.42 Type 2 diabetes mellitus with diabetic polyneuropathy
CPT/HCPCS: 36415; 36416; 80048; 81001; 83036; 83605; 84703; 85025; 94640; 96361; 96374; J0696; J1815; J3490; J7620; J7626

== ENCOUNTER 2019-07-12 12:11 | Observation (INO) | payer BC ==
[2019-07-12] MEDS ORDERED: Iopamidol-370 76% 500 ML 1 ML ONE (12:51)
[2019-07-12 13:06] LABS: #Eosinphils 0.1 thou/uL (0.0-0.7); #Lymphocytes 2.9 thou/uL (1.20-3.40); #Monocytes 0.8 thou/uL (0.11-0.59); #Neutrophils 5.4 thou/uL (1.40-6.50); %Basophils 0.4 % (0.0-1.0); %Eosinophils 1.2 % (0.0-10.0); %Lymphocytes 31.4 % (21.0-51.0); %Monocytes 8.7 % (0.0-10.0); %Neutrophils 58.3 % (42.0-75.0); Hemoglobin 12.5 g/dL (12.0-16.0); Mean Corpuscular HGB CONC 33.5 g/dL (32.0-36.0); Mean Corpuscular Hemoglobin 29.5 pg (27.0-31.0); Mean Platelet Volume 8.1 fL (7.4-10.4); Platelet Count 276 thou/uL (130-400); RBC Distribution Width 13.6 % (11.5-14.5); Red Blood Cell (RBC) Count 4.24 mill/uL (4.20-5.40); White Blood Cell (WBC) Count 9.2 thou/uL (4.8-10.8)
--- NOTE | 2019-07-12 13:09 | RAD ---
EXAM: Single view of the chest HISTORY: Chest pain COMPARISON: 04/17/2019 FINDINGS: Single view of the chest shows a normal sized cardiomediastinal silhouette. There is no adriano dence of consolidation, mass, or pleural effusion. The bones are unremarkable. IMPRESSION: No evidence of acute cardiopulmonary disease
[2019-07-12] MEDS ORDERED: Famotidine/PF 20 mg/2ml Vial ONE (13:16)
[2019-07-12] MEDS ORDERED: methylPREDNISolone Sod Succ/PF 125 MG/2 ML VIAL ONE (13:16)
[2019-07-12] MEDS ORDERED: diphenhydrAMINE 50 MG/ML VIAL ONE (13:16)
[2019-07-12 13:27] LABS: ALT (SGPT) 24 U/L (8-55); AST (SGOT) 38 U/L (5-34); Albumin 3.4 g/dL (3.5-5.0); Alkaline Phosphatase 97 U/L (40-110); Anion Gap 12 mmol/L (10-20); BUN (Urea Nitrogen) 7 mg/dL (9.8-20.1); Bilirubin, Total 0.4 mg/dL (0.2-1.2); CK (CPK) 149 U/L (29-168); Calc. Creatinine Clearance 0 mL/min (70-130); Calcium 8.6 mg/dL (7.8-10.44); Carbon Dioxide 25 mmol/L (22-29); Chloride 103 mmol/L (98-107); Estimated GFR-MDRD 73; Globulin 3.5 g/dL (2.4-3.5); Glucose 296 mg/dL (70-105); Lipase 27 U/L (8-78); Protein, Total 6.9 g/dL (6.0-8.3); Sodium 136 mmol/L (136-145)
[2019-07-12] MEDS ORDERED: Nitroglycerin 2% Ointment 1 INCH/1 GM Packet ONE (13:38)
--- NOTE | 2019-07-12 15:05 | CT ---
EXAM: CTA of the chest and abdomen HISTORY: Crushing chest pain rating to the back COMPARISON: None TECHNIQUE: Multiple contiguous axial images were obtained a CTA of the chest and abdomen with contras t per aortic dissection protocol. Sagittal and coronal 3-D MIP reformats were performed. FINDINGS: HEART: Normal in size without focal cardiac abnormality. PULMONARY ARTERIES: Normal in caliber without filling defects to suggest pulmonary emboli. MEDIASTINUM: No hilar or mediastinal lymphadenopathy. LUNGS: No focal infiltrates or masses. PLEURAL SPACE: No pleural effusion or pneumothorax. CHEST AND ABDOMINAL WALL SOFT TISSUES: Unremarkable LIVER: Mild diffuse fatty infiltration of the liver.. GALLBLADDER: Unremarkable. KIDNEYS: Unremarkable. SPLEEN: Unremarkable. PANCREAS: Unremarkable. BOWEL: Unremarkable. RETROPERITONEUM: No lymphadenopathy BONES: Degenerative changes in the spine. ASCENDING THORACIC AORTA: Normal caliber without evidence of dissection or aneurysmal dilatation. DESCENDING THORACIC AORTA: Normal caliber without evidence of dissection or aneurysmal dilatation. ABDOMINAL AORTA: Normal caliber without evidence of dissection or aneurysmal dilatation. CELIAC TRUNK: Patent SMA: Patent CLAUDE: Patent RENAL ARTERIES: Bilateral single renal arteries without significant atherosclerotic disease IMPRESSION: 1. No evidence of thoracic or abdominal aortic aneurysm or dissection 2. Mild fatty liver
[2019-07-12 16:40] LABS: CKMB 2.2 ng/mL (0-6.6)
[2019-07-12] MEDS ORDERED: Dextrose 5% in Water 1,000 ML IV PRN (17:46)
[2019-07-12] MEDS ORDERED: Dextrose 50% Abboject 50 ML SYRINGE SLOW IVP PRN (17:46)
[2019-07-12] MEDS ORDERED: Metoclopramide HCl 10 MG/2 ML VIAL IVP PRN (18:01)
[2019-07-12] MEDS ORDERED: Nitroglycerin 0.4 MG TAB (25 Tab Bottle) SL PRN (18:16)
[2019-07-12 18:20] VITALS: BMI 41.3
--- NOTE | 2019-07-12 18:58 | HP ---
CHIEF COMPLAINT: Chest tightness. HISTORY OF PRESENT ILLNESS: This is a 59-year-old female with reported history of congestive heart failure, asthma/COPD, hypertension, type 2 diabetes on an insulin pump, obstructive sleep apnea on CPAP, who presents to the emergency room with chest tightness. The patient reports today finding her father on his tractor, who had approximately an hour prior to her arrival. This was around 10 a.m. and states since then she has felt like something "like something sitting on me." She remained with her father, took a nitroglycerin, was evaluated by EMS when they came out to the home, and subsequently was brought here. The patient reports yesterday having chest tightness, she uses daily 4-6 times per day an inhaler or four nebulizer therapies in addition to Symbicort. Currently, she is complaining of left-sided chest pressure despite nitroglycerin, as well as some burning sensation in her stomach. She has also had nausea this week, intermittent abdominal pain since her last hospitalization here with a diabetic foot ulcer back in April. She denies any precipitating or relieving factors. In addition, she complains of a headache since yesterday. In the emergency room, the patient treated with one inch of nitroglycerin paste , 500 mL of normal saline, 125 mg of Solu-Medrol, 50 mg of IV Benadryl and 20 mg of IV famotidine and hospitalist called for admission. ALLERGIES: REVIEWED AND CONFIRMED WITH THE PATIENT: 1. AMOXICILLIN. 2. CODEINE. 3. DILAUDID. 4. IODINE. 5. LISINOPRIL. 6. MORPHINE. 7. NUTS. 8. SULFA. PAST MEDICAL HISTORY: 1. Congestive heart failure - pt reports Dr. Hsu is her Manager Decision Support in [place], last cath was a year ago and she reports it was normal. 2. Asthma COPD. 3. Diabetic neuropathy. 4. Type 2 diabetes, on an insulin pump. 5. Hypertension. 6. Obstructive sleep apnea. 7. Diabetic foot ulcer with hospitalization here in 2019 that is on the left side. 8. Migraines. PAST SURGICAL HISTORY: 1. Tonsillectomy. 2. Appendectomy. 3. Cervical biopsy and I and D. SOCIAL HISTORY: The patient lives with her daughter and grandson, her daughter, Mary Jane, is her surrogate decision maker, she is a full code. She denies alcohol or tobacco. FAMILY HISTORY: Significant for heart disease. MEDICATIONS: Reviewed with the patient; 1. Tradjenta 5 mg daily. 2. Carvedilol 12.5 mg b.i.d. 3. Humulin 500 insulin pump. 4. Albuterol using this 4-6 times per day. 5. Amlodipine 5 mg daily. 6. Aspirin 81 mg daily. 7. Atorvastatin 40 mg at bedtime. 8. Hydrochlorothiazide 25 mg daily. 9. Nitroglycerin 0.4 mg as needed. 10. Sertraline 50 mg once daily. 11. Spironolactone 25 mg daily. 12. Symbicort 2 puffs b.i.d. 13. Montelukast 10 mg daily. REVIEW OF SYSTEMS: Positive for left arm limited range of motion and awaiting surgery this is after a fall last summer. Positive for headache yesterday. Epigastric burning. Intermittent nausea and intermittent abdominal pain. All remaining review of systems are reviewed and negative. PHYSICAL EXAMINATION: VITAL SIGNS: Blood pressure 130/75, pulse 82, respirations 19, temperature 98.6 , sat 95% on room air. GENERAL: Awake, alert, responsive, easily tearful. She is not in acute distress. HEENT: Her pupils are equal and round. Oral mucosa is pink, appears dry. NECK: Supple. Tenderness to palpation more on the trapezius on the left side but the patient reports consistent with her prior shoulder injury. No palpable anterior cervical or supraclavicular lymphadenopathy. LUNGS: Clear to auscultation bilateral with good air movement. No audible wheezing, rhonchi, or rales. HEART: Normal S1, S2. Regular rate and rhythm. No significant murmur. ABDOMEN: Soft. Present bowel sounds. Nontender, nondistended. EXTREMITIES: No clubbing, cyanosis, or edema. VASCULAR: 2+ dorsalis pedis pulses. SKIN: No visible rashes. NEURO: No focal deficit. PSYCH: The patient appears sad, easily tearful when referring to her father, who this morning. FUNES FINDINGS AND TEST RESULTS: CBC; 9.2, 12.5, 37.3, 276. Renal panel; 136, 4.0, 103, 25, 7, 0.8, 296. AST 38, ALT 24, T bilirubin 0.4, alkaline phosphatase 97, total protein 6.9, albumin 3.4. Lipase 27. CK 149, MB 2.2, troponin 0.032, and negative. DIAGNOSTIC DATA: EKG is personally reviewed. Right bundle branch block. Normal axis. A QT corrected of 522. No ST changes and Q-waves in the inferior leads. CT dissection protocol shows no evidence of thoracic or abdominal aortic aneurysm or dissection, mild fatty liver. Chest x-ray personally reviewed no evidence of an acute cardiopulmonary process. IMPRESSION: 1. Chest pressure in a patient whose father today, with known hypertension, type 2 diabetes, and reported history of congestive heart failure. 2. Chronic intermittent abdominal pain with nausea. 3. Fatty liver, mild, based on CT scan today. 4. Peripheral neuropathy. 5. Type 2 diabetes. 6. Chronic obstructive pulmonary disease/asthma, no signs of exacerbation. 7. Obstructive sleep apnea. 8. Diabetic foot ulcer, left heel. 9. Migraines. 10. Prolonged QT interval. PLAN: 1. Observation status in the hospital. 2. Obtain third troponin, monitor on telemetry. Continue the nitroglycerin paste for now. 3. We will order an echocardiogram for further evaluation. 4. Continuing scheduled nebs, will replace Symbicort with budesonide and Brovana inhaled twice a day. I do not see a reason to continue the steroids as the patient does have good air movement. 5. We will start a PPI, and her appropriate home medications to include her antihypertensives and statin as well as low-dose aspirin. 6. Anticipated length of stay is overnight, the patient is requesting to go home tomorrow due to needing to manage her father's affairs, and I think that she can closely follow up with her spiral gear generator from home. 7. Avoid medications that can prolong the QT interval, we will order Reglan p.r.n. for nausea. 8. The patient will continue to use her insulin pump, and coordinate this with fingerstick glucose with the nursing staff here. 9. Deep vein thrombosis prophylaxis. She is ambulatory. 10. Gastrointestinal prophylaxis. We will start a PPI as she did receive high- dose steroids. 11. Code status is full and surrogate decision maker is her daughter, Mary Jane. 12. The patient is at high risk given age comorbidities and current presentation. 13. Reviewed the plan of care with patient, her daughter, and her grandson. No questions or further needs at end of evaluation. Job ID: [id number] MTDD
[2019-07-12] MEDS ORDERED: Acetaminophen 325 MG TAB PO PRN (19:05)
[2019-07-12] MEDS: Sodium Chloride 0.9% 1,000 ML IV SCH (19:16)
[2019-07-12] MEDS: Budesonide 0.5 MG/2 ML NEB INH SCH (20:05)
[2019-07-12] MEDS: Arformoterol 15 MCG/2 ML NEB NEB SCH (20:05)
[2019-07-12 20:30] LABS: Troponin I Less than 0.010 ng/mL (< 0.028)
[2019-07-12] MEDS: Atorvastatin Calcium 40 MG TAB PO SCH (21:59)
[2019-07-12] MEDS: Montelukast Sodium 10 mg Tablet PO SCH (21:59)
[2019-07-12] MEDS: Nitroglycerin 2% Ointment 1 INCH/1 GM Packet TOP SCH (21:59)
[2019-07-13 05:31] LABS: #Lymphocytes 1.8 thou/uL (1.20-3.40); #Monocytes 0.6 thou/uL (0.11-0.59); #Neutrophils 10.8 thou/uL (1.40-6.50); %Basophils 0.2 % (0.0-1.0); %Eosinophils 0.1 % (0.0-10.0); %Lymphocytes 13.7 % (21.0-51.0); %Monocytes 4.4 % (0.0-10.0); %Neutrophils 81.6 % (42.0-75.0); Hemoglobin 12.8 g/dL (12.0-16.0); Mean Corpuscular HGB CONC 33.2 g/dL (32.0-36.0); Mean Corpuscular Hemoglobin 28.9 pg (27.0-31.0); Platelet Count 307 thou/uL (130-400); RBC Distribution Width 13.8 % (11.5-14.5); Red Blood Cell (RBC) Count 4.43 mill/uL (4.20-5.40); White Blood Cell (WBC) Count 13.2 thou/uL (4.8-10.8)
[2019-07-13 05:53] LABS: Anion Gap 13 mmol/L (10-20); BUN (Urea Nitrogen) 12 mg/dL (9.8-20.1); Calc. Creatinine Clearance 134 mL/min (70-130); Calcium 8.8 mg/dL (7.8-10.44); Carbon Dioxide 23 mmol/L (22-29); Chloride 103 mmol/L (98-107); Estimated GFR-MDRD 71; Glucose 323 mg/dL (70-105); Potassium 4.1 mmol/L (3.5-5.1); Sodium 135 mmol/L (136-145)
[2019-07-13] MEDS: Arformoterol 15 MCG/2 ML NEB NEB SCH ×2 (06:21→19:32)
[2019-07-13] MEDS: Budesonide 0.5 MG/2 ML NEB INH SCH ×2 (06:24→19:31)
[2019-07-13] MEDS: Nitroglycerin 2% Ointment 1 INCH/1 GM Packet TOP SCH (06:44)
[2019-07-13] MEDS ORDERED: Spironolactone 25 MG TAB PO SCH (08:00)
[2019-07-13] MEDS ORDERED: Hydrochlorothiazide 25 MG TAB PO SCH ×2 (09:00→09:45)
[2019-07-13] MEDS ORDERED: Amlodipine 5 MG TAB PO SCH ×2 (09:00→09:45)
--- NOTE | 2019-07-13 09:33 | PDOC.HOSPP ---
- Subjective Encounter Date: 07/13/19 (f/u chest pressure) Encounter Time: 09:31 Subjective: Pt reports she has chest pressure when she thinks of her Dad, reports she didnt sleep last night as every time she closed her eyes she could picture her Dad on the tractor after he . She notes shortness of breath with exertion - ongoing x 4-5 weeks. Also notes falls x 5 over hte past 2 months. - Objective Vital Signs & Weight: Vital Signs (12 hours) Temp Pulse Resp BP BP Pulse Ox 07/13/19 07:37 98.4 F 104 H 18 121/58 L 96 07/13/19 06:21 97 16 97 07/13/19 04:11 97.6 F 95 18 112/56 L 96 07/12/19 23:27 98.5 F 97 20 114/55 L 95 Weight Weight 255 lb 14.4 oz I&O: 07/12/19 07/13/19 07/14/19 06:59 06:59 06:59 Intake Total 1980 950 Output Total 1375 Balance 605 950 Result Diagrams: 07/13/19 05:19 07/13/19 05:19 Additional Labs: Accuchecks 07/13/19 07/12/19 07/12/19 06:45 20:50 17:57 POC Glucose 321 H 369 H 217 H 07/12/19 07/12/19 15:53 13:31 POC Glucose 84 216 H EKG Reviewed by me: Yes (tele sinus 90-100's, occ to 110's) Hospitalist ROS - Medication Medications: Active Medications Generic Name Dose Route Start Last Admin Trade Name Brenda PRN Reason Stop Dose Admin Acetaminophen 650 mg 07/12/19 19:05 07/12/19 19:18 Tylenol PO 650 mg Q6H PRN Administration Pain Albuterol/Ipratropium 3 ml 07/12/19 19:00 07/13/19 06:24 Duoneb NEB 3 ml [id number] SONIA Administration Arformoterol Tartrate 15 mcg 07/12/19 18:30 07/13/19 06:21 Brovana NEB 15 mcg BID-RT SONIA Administration Atorvastatin Calcium 40 mg 07/12/19 21:00 07/12/19 21:59 Lipitor PO 40 mg HS SONIA Administration Budesonide 0.5 mg 07/12/19 18:30 07/13/19 06:24 Pulmicort Neb Solution INH 0.5 mg BID-RT SONIA Administration Montelukast Sodium 10 mg 07/12/19 21:00 07/12/19 21:59 Singulair PO 10 mg QPM SONIA Administration Nitroglycerin 0.5 inch 07/12/19 22:00 07/13/19 06:44 Nitro-Bid 2% Ointment TOP 0.5 inch Q8HR SONIA Administration Sodium Chloride 10 ml 07/12/19 21:00 07/12/19 21:59 Flush - Normal Saline IVF Not Given Q12HR SONIA - Exam General Appearance: NAD Heart: RRR, no murmur Respiratory: CTAB, no wheezes, no rales, no ronchi Respiratory - other findings: good air movement Gastrointestinal: soft, non-tender, non-distended, normal bowel sounds Psychiatric - other findings: tearful frequently during conversation Hosp A/P (1) Chest pressure Code(s): R07.89 - OTHER CHEST PAIN Status: Acute (2) Grief Code(s): F43.21 - ADJUSTMENT DISORDER WITH DEPRESSED MOOD Status: Acute (3) Fatty liver Code(s): K76.0 - FATTY (CHANGE OF) LIVER, NOT ELSEWHERE CLASSIFIED Status: Chronic (4) Peripheral neuropathy Code(s): G62.9 - POLYNEUROPATHY, UNSPECIFIED Status: Chronic (5) Prolonged QT interval Code(s): R94.31 - ABNORMAL ELECTROCARDIOGRAM [ECG] [EKG] Status: Chronic (6) Migraines Code(s): G43.909 - MIGRAINE, UNSP, NOT INTRACTABLE, WITHOUT STATUS MIGRAINOSUS Status: Chronic Qualifiers: Migraine type: unspecified (7) COPD (chronic obstructive pulmonary disease) Status: Chronic Qualifiers: Emphysema type: unspecified (8) DMII (diabetes mellitus, type 2) Status: Chronic (9) Hyperlipidemia associated with type 2 diabetes mellitus Code(s): E11.69 - TYPE 2 DIABETES MELLITUS WITH OTHER SPECIFIED COMPLICATION; E78.5 - HYPERLIPIDEMIA, UNSPECIFIED Status: Chronic (10) Hypertension Code(s): I10 - ESSENTIAL (PRIMARY) HYPERTENSION Status: Chronic - Plan Chest pressure - negative cardiac eval thus far, await Echo - close f/u needed with outpatient Cards in [place] - d/c nitropaste and IVF COPD/asthma - no signs of exac, no further steroids indicated - continue neb tx - will need close f/u with PCP for ongoing [facility] DM type 2 on insulin pump - uncontrolled, likely due to solumedrol yesterday - anticipate this will improve today, continue insulin pump with sliding scale HTN - bp's lower side of normal today, hold amlodipine, hctz, this morning. - continue carvedilol Weakness/gait instability - PT consult Grief from father dying yesterday - Assistant Store Leader for spiritual support dvt prophy - ambulatory gi prophy - not indicated code status full reviewed plan of care with patient including plan for discharge to home after echo results obtained. Pt demonstrates understanding and agrees. Addendum - pt with fatigue, notes more cough, has been able to sleep some today. Blood sugars remain in the 300's - she reports at home she takes Toujeo 170 units daily (3 injections total of 80 units, 80 units and 10 units) in addition to the insulin pump. Echo normal. Will plan to observe tonight as well - continue breathing treatments. Moving air well, do not plan on additional steroids at this time. Anticipate d/c to home tomorrow. PT ordered earlier due to gait instability. Pt reports improvement after visiting with the harness racing handicapper.
[2019-07-13] MEDS: Sodium Chloride 0.9% 1,000 ML IV SCH (09:38)
[2019-07-13] MEDS: Aspirin 81 mg Enteric Coated Tablet PO SCH (09:44)
[2019-07-13] MEDS: Carvedilol 6.25 MG TAB PO SCH ×2 (09:45→16:53)
[2019-07-13] MEDS ORDERED: Calcium Carbonate 500 MG ChewTAB PO PRN (09:55)
[2019-07-13] MEDS: Atorvastatin Calcium 40 MG TAB PO SCH (19:51)
[2019-07-13] MEDS: Montelukast Sodium 10 mg Tablet PO SCH (19:51)
[2019-07-14 05:02] LABS: #Basophils 0.1 thou/uL (0.0-0.2); #Eosinphils 0.1 thou/uL (0.0-0.7); #Lymphocytes 3.8 thou/uL (1.20-3.40); #Neutrophils 6.2 thou/uL (1.40-6.50); %Basophils 0.9 % (0.0-1.0); %Eosinophils 1.2 % (0.0-10.0); Hemoglobin 12.2 g/dL (12.0-16.0); Mean Corpuscular HGB CONC 32.6 g/dL (32.0-36.0); Mean Corpuscular Hemoglobin 28.9 pg (27.0-31.0); Mean Corpuscular Volume 88.6 fL (78.0-98.0); Platelet Count 271 thou/uL (130-400); RBC Distribution Width 14.3 % (11.5-14.5); Red Blood Cell (RBC) Count 4.22 mill/uL (4.20-5.40); White Blood Cell (WBC) Count 11.2 thou/uL (4.8-10.8)
[2019-07-14 05:24] LABS: Anion Gap 12 mmol/L (10-20); BUN (Urea Nitrogen) 13 mg/dL (9.8-20.1); Calc. Creatinine Clearance 131 mL/min (70-130); Calcium 8.4 mg/dL (7.8-10.44); Carbon Dioxide 26 mmol/L (22-29); Chloride 107 mmol/L (98-107); Estimated GFR-MDRD 69; Glucose 212 mg/dL (70-105); Magnesium 1.8 mg/dL (1.6-2.6); Potassium 3.8 mmol/L (3.5-5.1); Sodium 141 mmol/L (136-145)
[2019-07-14] MEDS: Budesonide 0.5 MG/2 ML NEB INH SCH (06:59)
[2019-07-14] MEDS ORDERED: Spironolactone 25 MG TAB PO SCH (08:00)
[2019-07-14] MEDS ORDERED: Amlodipine 5 MG TAB PO SCH (09:00)
[2019-07-14] MEDS ORDERED: Hydrochlorothiazide 25 MG TAB PO SCH (09:00)
[2019-07-14] MEDS: Aspirin 81 mg Enteric Coated Tablet PO SCH (09:41)
[2019-07-14] MEDS: Carvedilol 6.25 MG TAB PO SCH (09:42)
[2019-07-14] MEDS: Arformoterol 15 MCG/2 ML NEB NEB SCH (10:33)
[2019-07-14 11:56] VITALS: BP 115/57; TEMP 98
--- NOTE | 2019-07-14 21:08 | PDISCHARGE ---
Discharge - Disposition Disposition: HOME - Patient Instructions Pre-Printed Education: Coping With Loss, Adult, Diabetes Mellitus and Nutrition , Adult Care Plan Goals: FOCUS: Transition from Acute Care after Discharge GOAL: Successful transition to care in the community YOUR TASKS: (1) review all information outlined in your discharge packet (2) follow any instructions outlined in your discharge packet (3) contact your primary care provider if you have questions or need additional assistance See patient discharge instruction sheet for detailed teaching. Patient verbalizes understanding of medications and is able to verbalize follow-up care. See Discharge Plan for additional discharge information. Patient secured in private vehicle prior to departure. - Referrals and PCP Follow-Up Referrals and PCP Follow-Up: Marcela Jacobs MD [Primary Care Provider] - 7 Days - Activity Instructions Activity:: Activity as Tolerated - Nourishment Instructions Nourishment:: Diabetic Diet - Therapy Instructions Additional Therapy Instructions:: Walker provided at d/c Course - Course Orders, Labs, Meds: Presenting initially with chest pain. Workup unremarkable for cardiac source. Patient had recent loss of family member, under grief and stress. Echocardiogram was ordered which also unremarkable for acute cardiac etiologies. Patient experienced improvement in pain symptoms. Will be discharged with a walker for home as per physical therapy recommendations. Follow up with PCP for chronic disease management. Hosp A/P (1) Chest pressure Code(s): R07.89 - OTHER CHEST PAIN Status: Acute (2) Grief Code(s): F43.21 - ADJUSTMENT DISORDER WITH DEPRESSED MOOD Status: Acute (3) Fatty liver Code(s): K76.0 - FATTY (CHANGE OF) LIVER, NOT ELSEWHERE CLASSIFIED Status: Chronic (4) Peripheral neuropathy Code(s): G62.9 - POLYNEUROPATHY, UNSPECIFIED Status: Chronic (5) Prolonged QT interval Code(s): R94.31 - ABNORMAL ELECTROCARDIOGRAM [ECG] [EKG] Status: Chronic (6) Migraines Code(s): G43.909 - MIGRAINE, UNSP, NOT INTRACTABLE, WITHOUT STATUS MIGRAINOSUS Status: Chronic Qualifiers: Migraine type: unspecified (7) COPD (chronic obstructive pulmonary disease) Status: Chronic Qualifiers: Emphysema type: unspecified (8) DMII (diabetes mellitus, type 2) Status: Chronic (9) Hyperlipidemia associated with type 2 diabetes mellitus Code(s): E11.69 - TYPE 2 DIABETES MELLITUS WITH OTHER SPECIFIED COMPLICATION; E78.5 - HYPERLIPIDEMIA, UNSPECIFIED Status: Chronic (10) Hypertension Code(s): I10 - ESSENTIAL (PRIMARY) HYPERTENSION Status: Chronic FMR OB H&P: Medications - Current Home Medications: Medication Instructions Recorded Confirmed Type Aspirin [Aspirin EC] 325 mg PO DAILY 12/10/17 07/12/19 History Atorvastatin Calcium [Lipitor] 40 mg PO HS 12/10/17 07/12/19 History Biotin/Keratin [Biotin Plus 1 each PO DAILY 12/10/17 07/12/19 History Keratin Tablet] Carvedilol 12.5 mg PO BID 12/10/17 07/12/19 History Cholecalciferol (Vitamin D3) 2,500 unit PO DAILY 12/10/17 07/12/19 History [Vitamin D3] Folic Acid/Multivit,Iron,[place] 1 tablet PO DAILY 12/10/17 07/12/19 History [One Daily For Women] Linagliptin [Tradjenta] 5 mg PO DAILY 12/10/17 07/12/19 History Montelukast Sodium [Singulair] 10 mg PO HS 12/10/17 07/12/19 History Amlodipine [Norvasc] 5 mg PO DAILY #30 tab 12/15/17 07/12/19 Rx Sertraline HCl [Zoloft] 50 mg PO QAM 04/18/19 07/12/19 History Albuterol Sulfate [Proair HFA] 2 puff INH Q6HR PRN 07/12/19 07/12/19 History Budesonide-Formoterol [Symbicort 2 puff INH BID 07/12/19 07/12/19 History 80-4.5] Hydrochlorothiazide 2 tab PO QAM 07/12/19 07/12/19 History Insulin Glargine,Hum.Rec.Anlog 170 unit SC QAM 07/12/19 07/12/19 History [Touminesh Cheathamostолег] Insulin Regular, Human [HumuLIN R 1 unit SC ASDIR 07/12/19 07/12/19 History (U-500)] Nitroglycerin 0.4 mg SL Q5MIN PRN 07/12/19 07/12/19 History Spironolactone 25 mg PO DAILY 07/12/19 07/12/19 History Calcium Carbonate [Tums] 1,000 mg PO Q4H PRN tab 07/14/19 Rx Allergies/Adverse Reactions: Allergies Allergy/AdvReac Type Severity Reaction Status Date / Time amoxicillin Allergy Verified 07/12/19 18:23 codeine Allergy Verified 07/12/19 18:23 hydromorphone [From Dilaudid] Allergy Verified 07/12/19 18:23 Iodinated Contrast Media Allergy Verified 07/12/19 18:23 iodine Allergy Verified 07/12/19 18:23 lisinopril Allergy Verified 07/12/19 18:23 morphine Allergy Verified 07/12/19 18:23 Penicillins Allergy Verified 07/12/19 18:23 perfume Allergy Verified 07/12/19 18:23 Sulfa (Sulfonamide Allergy Verified 07/12/19 18:23 Antibiotics) Nuts Allergy Uncoded 07/12/19 18:23
== END 2019-07-14 13:30 | disposition home or self-care (01) ==
LOC: ERS 12:11 → 2SW 17:13 → INTOOBSV 17:13
PROVIDERS: ADMIT Family Medicine; ATTEND Emergency Medicine
DX: R07.89 Other chest pain (principal); I11.0 Hypertensive heart disease with heart failure; I50.9 Heart failure, unspecified; J44.9 Chronic obstructive pulmonary disease, unspecified; G47.33 Obstructive sleep apnea (adult) (pediatric); G43.909 Migraine, unspecified, not intractable, without status migrainosus; E11.42 Type 2 diabetes mellitus with diabetic polyneuropathy; R94.31 Abnormal electrocardiogram [ECG] [EKG]; E11.621 Type 2 diabetes mellitus with foot ulcer; L97.429 Non-pressure chronic ulcer of left heel and midfoot with unspecified severity; K76.0 Fatty (change of) liver, not elsewhere classified; F43.21 Adjustment disorder with depressed mood; E78.5 Hyperlipidemia, unspecified; Z77.22 Contact with and (suspected) exposure to environmental tobacco smoke (acute) (chronic); Z79.4 Long term (current) use of insulin; Z79.82 Long term (current) use of aspirin; Z79.899 Other long term (current) drug therapy; Z88.0 Allergy status to penicillin; Z88.2 Allergy status to sulfonamides; Z88.5 Allergy status to narcotic agent; Z88.8 Allergy status to other drugs, medicaments and biological substances; Z91.041 Radiographic dye allergy status; Z91.018 Allergy to other foods; Z99.89 Dependence on other enabling machines and devices; Z96.41 Presence of insulin pump (external) (internal)
CPT/HCPCS: 36415; 36416; 71045; 71275; 72191; 74175; 80048; 80053; 82550; 82553; 83690; 83735; 83880; 84484; 85025; 86850; 86900; 86901; 93005; 93306; 94640; 96361; 96374; 96375; G0378; J1200; J2930; J7620; J7626; Q9967; S0028

== ENCOUNTER 2019-09-03 16:00 | Inpatient (IN) | payer BC ==
[2019-09-03] MEDS ORDERED: Acetaminophen 500 MG TAB ONE (16:26)
[2019-09-03] MEDS ORDERED: Ondansetron PF 4 MG/2 ML Vial ONE (16:26)
[2019-09-03] MEDS ORDERED: Ketorolac Tromethamine 30 MG/ML VIAL ONE (16:26)
[2019-09-03 17:02] LABS: ALT (SGPT) 14 U/L (8-55); AST (SGOT) 21 U/L (5-34); Alkaline Phosphatase 167 U/L (40-110); Anion Gap 17 mmol/L (10-20); BUN (Urea Nitrogen) 33 mg/dL (9.8-20.1); Bilirubin, Total 0.3 mg/dL (0.2-1.2); Calc. Creatinine Clearance 0 mL/min (70-130); Calcium 8.1 mg/dL (7.8-10.44); Carbon Dioxide 21 mmol/L (22-29); Chloride 97 mmol/L (98-107); Estimated GFR-MDRD 35; Globulin 3.1 g/dL (2.4-3.5); Glucose 351 mg/dL (70-105); Potassium 3.9 mmol/L (3.5-5.1); Protein, Total 6.1 g/dL (6.0-8.3); Sodium 131 mmol/L (136-145)
[2019-09-03 19:35] LABS: Lactic Acid 1.9 mmol/L (0.5-2.2)
[2019-09-03] MEDS ORDERED: NS 0.9% w/ 20 MEQ KCL 1,000 ML IV PRN ×2 (19:40)
[2019-09-03] MEDS ORDERED: Sodium Chloride 0.9% 1,000 ML IV SCH (19:40)
[2019-09-03] MEDS ORDERED: Sodium Chloride 0.9% 1,000 ML IV PRN ×4 (19:40)
[2019-09-03] MEDS ORDERED: CCU Electrolyte Replacement 1 EACH IVPB ONE (19:40)
[2019-09-03] MEDS ORDERED: Dextrose 5 %-0.45 % NaCl 1,000 ML IV PRN (19:40)
[2019-09-03] MEDS ORDERED: CCU Electrolyte Replacement 1 EACH FS ONE (19:40)
[2019-09-03] MEDS ORDERED: Magnesium 2 GM/50 ML 2 GM in Premix Bag 1 BAG IVPB PRN (19:59)
[2019-09-03] MEDS ORDERED: Potassium Chloride 20 MEQ TAB PO PRN (19:59)
[2019-09-03] MEDS ORDERED: Potassium Phosphate 12 MMOL in Sodium Chloride 0.9% 250 ML 250 ML IV PRN (19:59)
[2019-09-03] MEDS ORDERED: Potassium Chloride 40 MEQ in Sodium Chloride 0.9% 250 ML 250 ML IVPB PRN (19:59)
[2019-09-03] MEDS ORDERED: Potassium Chloride 40 MEQ in Premix Bag 1 BAG IVPB PRN (19:59)
[2019-09-03] MEDS ORDERED: Potassium Phosphate 15 MMOL in Sodium Chloride 0.9% 250 ML 250 ML IV PRN (19:59)
[2019-09-03] MEDS ORDERED: CCU ELECTROLYTE REPLACEMENT PROTOCOL FS PRN (19:59)
[2019-09-03] MEDS ORDERED: Potassium Phosphate 9 MMOL in Sodium Chloride 0.9% 100 ML IVPB PRN (19:59)
[2019-09-03] MEDS ORDERED: Magnesium Oxide 400 MG TAB PO PRN ×2 (19:59)
[2019-09-03] MEDS ORDERED: PHOS-NAK 1 PKT PACK PO PRN ×2 (19:59)
[2019-09-03] MEDS ORDERED: Vancomycin HCl 1 GM in Sodium Chloride 0.9% 250 ML 250 ML IVPB SCH ×2 (20:00→21:00)
[2019-09-03] MEDS ORDERED: Vancomycin HCl 1 GM in Premix Bag 1 BAG IVPB SCH (20:00)
[2019-09-03 20:16] LABS: Anion Gap 12 mmol/L (10-20); BUN (Urea Nitrogen) 33 mg/dL (9.8-20.1); Calc. Creatinine Clearance 0 mL/min (70-130); Calcium 7.7 mg/dL (7.8-10.44); Carbon Dioxide 22 mmol/L (22-29); Chloride 102 mmol/L (98-107); Estimated GFR-MDRD 37; Glucose 250 mg/dL (70-105); Magnesium 1.8 mg/dL (1.6-2.6); Potassium 3.6 mmol/L (3.5-5.1); Sodium 132 mmol/L (136-145)
[2019-09-03] MEDS ORDERED: cefTRIAXone\\ROCEPHIN 2 GM in Sodium Chloride 0.9% 100 ML IVPB SCH (21:00)
[2019-09-03] MEDS: D5 1/2 NS w/20 mEq KCL 1,000 ML IV PRN (22:00)
--- NOTE | 2019-09-03 22:01 | HP ---
PRIMARY CARE PROVIDER: Marcela Jacobs MD CHIEF COMPLAINT: Abdominal pain, nausea, vomiting, and body aches. HISTORY OF PRESENT ILLNESS: This is a 59-year-old female, who presented to [facility] Emergency Department complaining of general malaise, recent urinary tract infection, but unable to hold down oral antibiotics due to protracted nausea and vomiting. The patient states symptoms began in the last 2 to 3 days at which point, she visited her primary care provider who prescribed the antibiotics. However, the patient was unable to take the medication due to miscommunication in pharmacy. The patient developed flank pain, abdominal discomfort with nausea and vomiting. The patient states she attempted to increase her water intake, but was unsuccessful and had dark urine per report. The patient also admits to dysuria, but no diarrhea or change to bowel habits. The patient admits to recurrent urinary tract infections, but is unable to confirm the last urinary tract infection. Review of electronic medical record shows a recent admission in June 2019, for chest pressure and COPD. In the emergency room, the patient underwent general evaluation with metabolic workup revealing diabetic ketoacidosis with a glucose over 700. The patient was placed on DKA protocol, receiving aggressive IV fluid hydration in addition to subcutaneous insulin and insulin infusion. The patient was also initiated on Rocephin 2 g IV piggyback with vancomycin intravenously due to concern for severe sepsis. The patient's initial lactic acid level at 4, prompting the sepsis protocol. The patient received up to 5 L of normal saline in the emergency room with blood pressures in the 100 to 110 systolic. The patient was referred to the Hospitalist Service for further evaluation. PAST MEDICAL HISTORY: 1. Diabetes mellitus type 1 with insulin pump with U-500. 2. Coronary artery disease. 3. Diabetic peripheral neuropathy. 4. Chronic obstructive pulmonary disease/asthma. 5. Hypertension. 6. Morbid obesity. 7. Obstructive sleep apnea. 8. Osteoarthritis. 9. History of migraines. PAST SURGICAL HISTORY: 1. Status post tonsillectomy. 2. Status post appendectomy. 3. Status post cervical biopsy with incision and drainage. 4. Status post cardiac catheterization. CURRENT MEDICATIONS: Based on review of electronic medical record in June 2019: 1. Tradjenta 5 mg p.o. daily. 2. Carvedilol 12.5 mg p.o. b.i.d. 3. U-500 insulin pump. 4. Albuterol metered-dose inhaler two puffs inhaled q.4 to 6 hours p.r.n. 5. Amlodipine 5 mg p.o. daily. 6. Enteric-coated aspirin 81 mg p.o. daily. 7. Lipitor 40 mg p.o. at bedtime. 8. Hydrochlorothiazide 25 mg p.o. daily. 9. Nitroglycerin 0.4 mg sublingually as needed for chest pain. 10. Sertraline 50 mg p.o. daily. 11. Spironolactone 25 mg p.o. daily. 12. Symbicort two puffs inhaled b.i.d. 13. Singulair 10 mg p.o. daily. ALLERGIES: AMOXICILLIN, CODEINE, HYDROMORPHONE, AND CONTRAST MEDIA. FAMILY HISTORY: Positive for coronary artery disease. SOCIAL HISTORY: Lives with her daughter and grandson. No current alcohol, tobacco, or illicit drug use. Resides in the [place], [place] area. REVIEW OF SYSTEMS: CONSTITUTIONAL: Negative for weight loss or gain, ability to conduct usual activities. SKIN: Negative for rash, itching. EYES: Negative for double vision, pain. ENT/MOUTH: Negative for nose bleeding, neck stiffness, pain, tenderness. CARDIOVASCULAR: Negative for palpitations, dyspnea on exertion, orthopnea. RESPIRATORY: Negative for shortness of breath, wheezing, cough, hemoptysis, fever or night sweats. GASTROINTESTINAL: Negative for poor appetite, abdominal pain, heartburn, nausea, vomiting, constipation, or diarrhea. GENITOURINARY: Negative for urgency, frequency, dysuria, nocturia. MUSCULOSKELETAL: Negative for pain, swelling. NEUROLOGIC/PSYCHIATRIC: Negative for anxiety, depression. ALLERGY/IMMUNOLOGIC: Negative for skin rash, bleeding tendency. Otherwise negative except as stated per HPI. PHYSICAL EXAMINATION: VITAL SIGNS: On admission, blood pressure 142/59, pulse 110, respiratory rate 20, temperature 98.6 degrees Fahrenheit, O2 saturation 95% on room air. GENERAL APPEARANCE: This is a 59-year-old female, alert and oriented, but lethargic, answers questions when directly engaged in moderate distress. HEENT: Pupils are equal, round, reactive to light and accommodation. Extraocular muscles are intact. No scleral icterus. No conjunctival injection. Nares patent. OP is clear. Oral mucosa dry. NECK: Supple. No cervical adenopathy. No thyromegaly. No carotid bruits. No JVD appreciated. Cervical spine with full active and passive range of motion. No meningeal signs noted. CHEST: Lungs are clear to auscultation bilaterally with diminished breath sounds in the bases. CARDIOVASCULAR EXAM: S1-S2 with tachycardia. No murmur, rub, or gallop appreciated. Heart sounds are distant. ABDOMEN: Obese with mild tenderness to palpation in the left upper and lower quadrant. No palpable mass. Landmarks are difficult to palpate due to patient's body habitus. EXTREMITIES: Warm and dry with fair turgor. No clubbing, cyanosis, or asymmetric edema appreciated. Pulses palpable distally at the dorsalis pedis, posterior tibial, and popliteal arteries bilaterally. Capillary refill less than 2 seconds. NEUROLOGIC: Cranial nerves 2 through 12 are grossly intact. Lethargic, but opens eyes and answers questions when directly engaged. Not observed ambulatory during this exam. PERTINENT LABORATORY AND X-RAY FINDINGS: Sodium 131, potassium 3.9, chloride 97, CO2 of 21, BUN 33, creatinine 1.53, estimated GFR 35. Glucose ranged between 351 to 719. Lactic acid level ranged between 1.9 to 4.0. Alkaline phosphatase 167. Troponin I negative x1. BNP 153. CBC showed a white blood cell count of 14.5, hemoglobin 12.8, hematocrit 43.1, platelet count 199, with 21% bandemia. Urinalysis dated 09/03/2019, positive for protein, greater than 1000 glucose, moderate blood, 21 to 50 wbc's per high-power field with 2+ bacteria. Portable chest x-ray dated 09/03/2019, showed no acute cardiopulmonary process. CT of the abdomen and pelvis dated 09/03/2019, showed minimal perinephric fat stranding, more prominent on the right. Telemetry shows sinus tachycardia with heart rates in the low 100s. ASSESSMENT AND PLAN: 1. Severe sepsis with shock. The patient will be admitted to the Critical Care Unit. We will continue sepsis protocol. Continue rest of IV fluid hydration after receiving initial sepsis, fluid resuscitation in the emergency room. Continue Rocephin 2 g IV q.24 hours with additional vancomycin 1 g IV q.12 hours. Blood and urine cultures pending. Suspect secondarily to right-sided pyelonephritis/urinary tract infection. 2. Diabetic ketoacidosis. We will continue general diabetic ketoacidosis protocol. Continue aggressive IV fluid hydration. Insulin infusion. Repeat beta hydroxybutyrate level in the a.m. 3. Acute kidney injury. Suspect secondary to dehydration and volume depletion. Avoid nephrotoxic agents and limit contrast exposure. Continue IV fluids and repeat creatinine in the a.m. 4. Hyponatremia. Suspect secondary to hyperglycemia and pseudohyponatremia. Continue IV fluids with normal saline and repeat sodium level in the a.m. 5. Pyelonephritis. Continue IV Rocephin 2 g q.24 hours with additional vancomycin 1 g IV q.12 hours. Await final urine culture results. 6. Prophylaxis. SCDs while in bed. Pepcid 20 mg IV b.i.d. 7. Code status is full. Surrogate medical decision maker is patient's daughter. Total critical care time 40 minutes. I personally gave Critical Care Service for 45 minutes. Job ID: [id number]
[2019-09-03] MEDS: HUMULIN R 100 UNITS in Sodium Chloride 0.9% 100 ML IVPB SCH (22:22)
[2019-09-03] MEDS: Famotidine/PF 20 mg/2ml Vial SLOW IVP SCH (23:15)
[2019-09-04 00:20] LABS: Anion Gap 12 mmol/L (10-20); BUN (Urea Nitrogen) 34 mg/dL (9.8-20.1); Calc. Creatinine Clearance 84 mL/min (70-130); Calcium 7.5 mg/dL (7.8-10.44); Carbon Dioxide 20 mmol/L (22-29); Chloride 104 mmol/L (98-107); Estimated GFR-MDRD 37; Glucose 251 mg/dL (70-105); Potassium 3.7 mmol/L (3.5-5.1); Sodium 132 mmol/L (136-145)
[2019-09-04] MEDS: D5 1/2 NS w/20 mEq KCL 1,000 ML IV PRN ×3 (01:48→10:54)
[2019-09-04 02:08] LABS: Bacteria/HPF 1+ HPF (None Seen); Bilirubin Negative (Negative); Blood, Urine 2+ (Negative); Clarity Extra Turbid (Clear); Glucose, Urine (Dipstick) Greater than 1000 mg/dL (Negative); Leukocyte 500 Leu/uL (Negative); Nitrite Negative (Negative); Protein, Urine (Dipstick) 70 mg/dL (Neg-Trace); Squamous Epithelial None Seen HPF (0-3); Urobilinogen Normal mg/dL (Less than 2); WBC/HPF Greater than 50 HPF (0-3)
[2019-09-04 02:09] LABS: Urine Culture Reflex Yes Yes
[2019-09-04 04:08] LABS: Anion Gap 12 mmol/L (10-20); BUN (Urea Nitrogen) 33 mg/dL (9.8-20.1); Calc. Creatinine Clearance 85 mL/min (70-130); Calcium 7.5 mg/dL (7.8-10.44); Carbon Dioxide 20 mmol/L (22-29); Chloride 103 mmol/L (98-107); Estimated GFR-MDRD 38; Glucose 230 mg/dL (70-105); Potassium 3.5 mmol/L (3.5-5.1); Sodium 131 mmol/L (136-145)
[2019-09-04 04:50] LABS: Band 33 % (5-11); Eosinophils 1 % (0-10); Hemoglobin 10.5 g/dL (12.0-16.0); Lymphocytes 12 % (21-51); MDiff Complete? YES; Mean Corpuscular HGB CONC 32.1 g/dL (32.0-36.0); Mean Corpuscular Hemoglobin 29.2 pg (27.0-31.0); Mean Corpuscular Volume 90.8 fL (78.0-98.0); Mean Platelet Volume 9.1 fL (7.4-10.4); Metamyelocyte 2 % (0-0); Neutrophil 52 % (42-75); Platelet Count 117 thou/uL (130-400); Platelet Morphology Comment Appears Decreased; RBC Distribution Width 13.8 % (11.5-14.5); Red Blood Cell (RBC) Count 3.59 mill/uL (4.20-5.40); White Blood Cell (WBC) Count 13.8 thou/uL (4.8-10.8)
[2019-09-04] MEDS: Famotidine/PF 20 mg/2ml Vial SLOW IVP SCH ×2 (10:53→21:03)
[2019-09-04] MEDS: HUMULIN R 100 UNITS in Sodium Chloride 0.9% 100 ML IVPB SCH (10:54)
--- NOTE | 2019-09-04 12:04 | PDOC.HOSPP ---
- Subjective Encounter Date: 09/04/19 Encounter Time: 11:45 Subjective: f/u for sepsis with shock, UTI/pyelonephritis and DKA on insulin gtt. Remains somnolent per nursing and receiving insulin gtt and Rocephin/Vanc. - Objective Vital Signs & Weight: Vital Signs (12 hours) Temp Pulse Ox 09/04/19 11:18 98.6 F 09/04/19 10:54 92 L 09/04/19 07:33 95 09/04/19 07:12 98.0 F 09/04/19 03:45 97.9 F Weight Weight 282 lb 6.4 oz Most Recent Monitor Data Heart Rate from ECG 98 NIBP 124/54 NIBP BP-Mean 77 Respiration from ECG 19 SpO2 93 I&O: 09/03/19 09/04/19 09/05/19 06:59 06:59 06:59 Intake Total 2073.3 750 Output Total 1700 Balance 373.3 750 Result Diagrams: 09/04/19 03:32 09/04/19 03:32 Additional Labs: Accuchecks 09/04/19 09/04/19 09/04/19 11:01 09:46 08:12 POC Glucose 236 H 233 H 252 H 09/04/19 09/04/19 09/04/19 07:00 06:03 05:16 POC Glucose 226 H 208 H 208 H 09/04/19 09/04/19 09/04/19 04:04 03:03 02:04 POC Glucose 225 H 232 H 234 H 09/04/19 09/04/19 09/03/19 00:55 00:04 23:05 POC Glucose 243 H 242 H 251 H 09/03/19 09/03/19 09/03/19 22:04 20:28 19:09 POC Glucose 228 H 232 H 257 H 09/03/19 09/03/19 09/03/19 18:17 17:12 16:22 POC Glucose 252 H 317 H 315 H Microbiology 09/03/19 06:40 Urine clean catch Urine Culture - Preliminary Presumptive Escherichia coli Laboratory Tests 09/03/19 09/03/19 09/03/19 12:10 16:19 16:19 WBC 14.5 H Plt Count 199 Band Neuts % (Manual) 21 H Sodium 131 L BUN 33 H Creatinine 1.53 H Lactic Acid 3.4 H Cortisol B-Hydroxybutyrate 09/03/19 09/03/19 09/03/19 19:06 19:47 19:47 WBC Plt Count Band Neuts % (Manual) Sodium 132 L BUN 33 H Creatinine 1.44 H Lactic Acid 1.9 1.5 Cortisol B-Hydroxybutyrate 09/03/19 09/03/19 09/03/19 19:47 23:52 23:53 WBC Plt Count Band Neuts % (Manual) Sodium 132 L BUN 34 H Creatinine 1.44 H Lactic Acid Cortisol B-Hydroxybutyrate 0.09 0.08 09/04/19 09/04/19 03:32 03:32 WBC Plt Count Band Neuts % (Manual) 33 H Sodium BUN Creatinine Lactic Acid Cortisol 15.80 B-Hydroxybutyrate Microbiology 09/03/19 14:03 Urine Straight Catheter Urine Culture - Preliminary 09/03/19 13:00 Venous blood - Right Arm Blood Culture - Preliminary Presumptive Escherichia coli EKG Reviewed by me: Yes (Tele - sinus tachycardia) Hospitalist ROS - Medication Medications: Active Medications Generic Name Dose Route Start Last Admin Trade Name Timq PRN Reason Stop Dose Admin Famotidine 20 mg 09/03/19 21:00 09/04/19 10:53 Pepcid SLOW IVP 20 mg Q12HR SONIA Administration Potassium Chloride/Dextrose/Sod Cl 1,000 mls @ 250 mls/hr 09/03/19 19:40 10:54 D5 1/2 Ns W/20 Meq Kcl IV 1,000 mls .Q4H PRN Administration Step 4 of DKA Protocol Protocol Insulin Human Regular 100 101 mls @ 0 mls/hr 09/03/19 19:40 09/04/19 10:54 units/ Sodium Chloride IVPB 101 mls INF SONIA Administration Protocol Titrate - Exam General - other findings: somnolent, arouses to name or direct engagement Eye: PERRL, anicteric sclera ENT: normocephalic atraumatic, no oropharyngeal lesions, dry oral mucosa Neck: supple, symmetric, no JVD, no thyromegaly, no lymphadenopathy Heart: no murmur, no gallops, no rubs, normal peripheral pulses Heart - other findings: S1, S2 with tachycardia Respiratory: CTAB, no rales, tachypneic Respiratory - other findings: diminished breath sounds bilat Gastrointestinal: soft, non-distended, normal bowel sounds, no palpable masses Gastrointestinal - other findings: mild TTP in LUQ Extremities: no cyanosis, no clubbing, 1+ LE edema Skin: normal turgor, no lesions Neurological: cranial nerve grossly intact Musculoskeletal: generalized weakness Psychiatric: oriented to person, somnolent, lethargic Hosp A/P (1) Severe sepsis with acute organ dysfunction due to Gram negative bacteria Code(s): A41.50 - GRAM-NEGATIVE SEPSIS, UNSPECIFIED; R65.20 - SEVERE SEPSIS WITHOUT SEPTIC SHOCK Status: Acute Plan: Secondary to UTI with E. coli, continue Rocephin and await final blood/Ucx results, consider additional Levaquin (2) DKA (diabetic ketoacidosis) Code(s): E11.10 - TYPE 2 DIABETES MELLITUS WITH KETOACIDOSIS WITHOUT COMA Status: Acute Plan: Continue Insulin gtt, IVF's, serial accuchecks (3) JORGE (acute kidney injury) Code(s): N17.9 - ACUTE KIDNEY FAILURE, UNSPECIFIED Status: Acute Plan: Continue IVF's, avoid nephrotoxic agents, serial creatinine (4) Acute encephalopathy Code(s): G93.40 - ENCEPHALOPATHY, UNSPECIFIED Status: Acute Plan: Secondary to metabolic process, sepsis, supportive mgmt (5) DM type 2, uncontrolled, with neuropathy Code(s): E11.40 - TYPE 2 DIABETES MELLITUS WITH DIABETIC NEUROPATHY, UNSP; E11.65 - TYPE 2 DIABETES MELLITUS WITH HYPERGLYCEMIA Status: Chronic Plan: Continue Insulin gtt, hold home regimen given active sepsis, serial accuchecks (6) Hyponatremia Code(s): E87.1 - HYPO-OSMOLALITY AND HYPONATREMIA Status: Acute Plan: Likely pseudo-hyponatremia given hyperglycemia, serial Na+, IVF's - Plan continue antibiotics, social worker, respiratory therapy, DVT proph w/SCDs Continue aggressive IVF's Continue Insulin gtt Continue Rocephin/Vancomycin Await final Ucx/Blood cx Electrolyte Replacement protocol AM lab: BMP, CBC
[2019-09-04] MEDS: cefTRIAXone\\ROCEPHIN 2 GM in Sodium Chloride 0.9% 100 ML IVPB SCH (12:09)
[2019-09-04] MEDS: Acetaminophen 500 MG TAB PO PRN (15:10)
[2019-09-04] MEDS ORDERED: Nitroglycerin 0.4 MG TAB (25 Tab Bottle) SL PRN (20:21)
[2019-09-04] MEDS: Ondansetron PF 4 MG/2 ML Vial IVP PRN (20:27)
[2019-09-04] MEDS ORDERED: traMADol HCl 50 MG TAB PO SCH (21:00)
[2019-09-05] MEDS: D5 1/2 NS w/20 mEq KCL 1,000 ML IV PRN ×2 (01:36→19:55)
[2019-09-05 03:46] LABS: Band 17 % (5-11); Eosinophils 1 % (0-10); Hemoglobin 10.9 g/dL (12.0-16.0); Lymphocytes 9 % (21-51); MDiff Complete? YES; Mean Corpuscular HGB CONC 31.8 g/dL (32.0-36.0); Mean Corpuscular Hemoglobin 28.4 pg (27.0-31.0); Mean Corpuscular Volume 89.6 fL (78.0-98.0); Mean Platelet Volume 9.5 fL (7.4-10.4); Metamyelocyte 1 % (0-0); Monocytes 6 % (0-10); Neutrophil 66 % (42-75); Platelet Count 136 thou/uL (130-400); Platelet Morphology Comment Appears Adequate; RBC Distribution Width 14.2 % (11.5-14.5); Red Blood Cell (RBC) Count 3.85 mill/uL (4.20-5.40); White Blood Cell (WBC) Count 16.4 thou/uL (4.8-10.8)
[2019-09-05 03:53] LABS: Anion Gap 9 mmol/L (10-20); BUN (Urea Nitrogen) 20 mg/dL (9.8-20.1); Calc. Creatinine Clearance 106 mL/min (70-130); Calcium 7.6 mg/dL (7.8-10.44); Carbon Dioxide 22 mmol/L (22-29); Chloride 109 mmol/L (98-107); Estimated GFR-MDRD 49; Glucose 184 mg/dL (70-105); Potassium 4.1 mmol/L (3.5-5.1); Sodium 136 mmol/L (136-145)
[2019-09-05] MEDS: Acetaminophen 500 MG TAB PO PRN ×2 (05:53→14:11)
[2019-09-05] MEDS: Famotidine/PF 20 mg/2ml Vial SLOW IVP SCH ×2 (08:08→20:36)
--- NOTE | 2019-09-05 08:50 | CON ---
DATE OF CONSULTATION: 09/04/2019 HISTORY OF PRESENT ILLNESS: Ms. Bird is a 59-year-old female. She has a history of asthma. I have seen her in the past. She presented with confusion, hyperglycemia, abdominal discomfort, nausea, and vomiting. She gives a very fragmented history, but says her abdomen has been hurting for over a week. She was given antibiotics for her complaints, but did not improve. She subsequently has been admitted. She was aggressively volume resuscitated in the emergency room. I cannot really tell if she is better or not. PAST MEDICAL HISTORY: Remarkable for, 1. Diabetes with an insulin pump. 2. History of coronary artery disease. 3. Peripheral neuropathy. 4. History of asthma. 5. History of hypertension. 6. History of sleep apnea. 7. Degenerative arthritis. 8. History of vascular headaches. 9. Status post tonsillectomy, appendectomy, cervical biopsy, and cardiac catheterization. MEDICATIONS: Reviewed. ALLERGIES: SHE REPORTS MULTIPLE DRUG ALLERGIES. THESE WERE RECORDED IN THE COMPUTER. FAMILY HISTORY: Positive for vascular disease. Negative for lung disease in early age. SOCIAL HISTORY: She is not a smoker and not a drinker. She lives in [place]. REVIEW OF SYSTEMS: 10-point review of systems is negative, but probably not completely reliable. PHYSICAL EXAMINATION: GENERAL: Ms. Bird is a 59-year-old female. VITALS: Temp 99, heart rate 108, blood pressure 131/63, respiratory rate 25, and oximetry 92. HEENT: Pupils are equal and reactive. Sclerae anicteric. Extraocular movements full. NECK: Supple. No lymphadenopathy. LUNGS: Clear. HEART: Regular rhythm. ABDOMEN: Soft and nontender. EXTREMITIES: Without clubbing, cyanosis or edema. DIAGNOSTIC DATA: Abdomen and pelvis CT done in [place] yesterday at noon showed perinephric fat stranding on the right. LABORATORY DATA: Urine culture from yesterday is negative, but her 2/2 blood cultures positive for E coli. The blood cultures were done at 6:40 in the morning and then one in the afternoon. Urine culture was not done until 2 in the afternoon, so I suspect she had already received antibiotics. IMPRESSION: Pyelonephritis with bacteremia accounting for her abdominal pain, her confusion and her diabetes, that is out of control. She had 33% bands on her peripheral smear this morning. Her anion gap ___. Creatinine is 1.42. Her baseline creatinine at the end of last year was less than one. I suspect this elevation is related to her bacteremia and hypotension. I suspect she will gradually improve. There is nothing at this point in time that would lead me to believe that she needs intubation or ventilatory support, although she will need to be watched closely. TIME SPENT: This is a 70-minute consult, with greater than 50% of the time spent on the unit coordinating care. Job ID: [id number] LAVERN
--- NOTE | 2019-09-05 09:28 | PDOC.HOSPP ---
- Subjective Encounter Date: 09/05/19 Encounter Time: 09:20 Subjective: f/u for sepsis due to UTI with E. coli and DKA. Much improved today but some residual somnolence. - Objective Vital Signs & Weight: Vital Signs (12 hours) Temp Pulse Ox 09/05/19 07:31 95 09/05/19 07:03 98.6 F 09/05/19 07:02 93 L 09/05/19 04:00 98.3 F 09/05/19 00:00 98.8 F Weight Admit Weight 282 lb Weight 268 lb 12.8 oz Most Recent Monitor Data Heart Rate from ECG 93 NIBP 125/74 NIBP BP-Mean 91 Respiration from ECG 21 SpO2 94 I&O: 09/04/19 09/05/19 09/06/19 06:59 06:59 06:59 Intake Total 2073.3 5435 375 Output Total 1700 3175 Balance 373.3 2260 375 Result Diagrams: 09/05/19 03:08 09/05/19 03:08 Additional Labs: Accuchecks 09/05/19 09/05/19 09/05/19 08:08 06:56 06:03 POC Glucose 178 H 176 H 168 H 09/05/19 09/05/19 09/05/19 05:08 04:04 03:00 POC Glucose 200 H 166 H 181 H 09/05/19 09/05/19 09/05/19 02:08 00:58 00:08 POC Glucose 169 H 167 H 219 H 09/04/19 09/04/19 09/04/19 23:08 22:09 21:11 POC Glucose 205 H 197 H 170 H 09/04/19 09/04/19 09/04/19 20:07 19:03 18:08 POC Glucose 146 H 129 H 142 H 09/04/19 09/04/19 09/04/19 16:55 15:42 14:34 POC Glucose 152 H 163 H 161 H 09/04/19 09/04/19 09/04/19 12:57 11:01 09:46 POC Glucose 220 H 236 H 233 H Microbiology 09/03/19 14:03 Urine Straight Catheter Urine Culture - Preliminary 09/03/19 13:00 Venous blood - Right Arm Blood Culture - Preliminary Presumptive Escherichia coli 09/03/19 13:00 Venous blood - Right Arm Blood Culture - Preliminary Escherichia coli 09/03/19 06:40 Urine clean catch Urine Culture - Preliminary Presumptive Escherichia coli Laboratory Tests 09/03/19 09/03/19 09/03/19 12:10 16:19 16:19 WBC 14.5 H Hgb Plt Count 199 Band Neuts % (Manual) 21 H Sodium 131 L BUN 33 H Creatinine 1.53 H Lactic Acid 3.4 H Cortisol B-Hydroxybutyrate 09/03/19 09/03/19 09/03/19 19:06 19:47 19:47 WBC Hgb Plt Count Band Neuts % (Manual) Sodium 132 L BUN 33 H Creatinine 1.44 H Lactic Acid 1.9 1.5 Cortisol B-Hydroxybutyrate 09/03/19 09/03/19 09/03/19 19:47 23:52 23:53 WBC Hgb Plt Count Band Neuts % (Manual) Sodium 132 L BUN 34 H Creatinine 1.44 H Lactic Acid Cortisol B-Hydroxybutyrate 0.09 0.08 09/04/19 09/04/19 09/04/19 03:32 03:32 03:32 WBC 13.8 H Hgb 10.5 L Plt Count Band Neuts % (Manual) 33 H Sodium BUN Creatinine 1.42 H Lactic Acid Cortisol 15.80 B-Hydroxybutyrate 09/05/19 03:08 WBC Hgb Plt Count Band Neuts % (Manual) 17 H Sodium BUN Creatinine Lactic Acid Cortisol B-Hydroxybutyrate EKG Reviewed by me: Yes (Tele - SR) Hospitalist ROS - Medication Medications: Active Medications Generic Name Dose Route Start Last Admin Trade Name Freq PRN Reason Stop Dose Admin Acetaminophen 1,000 mg 09/03/19 19:40 09/05/19 05:53 Tylenol PO 1,000 mg Q6H PRN Administration Mild Pain (1-3) Famotidine 20 mg 09/03/19 21:00 09/05/19 08:08 Pepcid SLOW IVP 20 mg Q12HR SONIA Administration Potassium Chloride/Dextrose/Sod Cl 1,000 mls @ 250 mls/hr 09/03/19 19:40 01:36 D5 1/2 Ns W/20 Meq Kcl IV 1,000 mls .Q4H PRN Administration Step 4 of DKA Protocol Protocol Insulin Human Regular 100 101 mls @ 0 mls/hr 09/03/19 19:40 09/04/19 10:54 units/ Sodium Chloride IVPB 101 mls INF SONIA Administration Protocol Titrate Vancomycin HCl 2 gm/ Sodium 500 mls @ 250 mls/hr 09/04/19 13:00 09/04/19 13: 58 Chloride IVPB 500 mls 1300 SONIA Administration Ceftriaxone Sodium 2 gm/ 100 mls @ 200 mls/hr 09/04/19 12:00 09/04/19 12:09 Sodium Chloride IVPB 100 mls 1200 SONIA Administration Nitroglycerin 0.4 mg 09/04/19 20:21 09/04/19 21:01 Nitrostat SL 0.4 mg Q5MIN PRN Administration Chest Pain Ondansetron HCl 4 mg 09/03/19 19:40 09/04/19 20:27 Zofran IVP 4 mg Q6H PRN Administration Nausea/Vomiting - Exam General Appearance: NAD, awake alert Eye: PERRL, anicteric sclera ENT: normocephalic atraumatic, no oropharyngeal lesions Neck: supple, symmetric, no JVD, no thyromegaly, no lymphadenopathy Heart: RRR, no murmur, no gallops, no rubs, normal peripheral pulses Respiratory: CTAB, no wheezes, no ronchi Respiratory - other findings: diminished in bases o/w clear Gastrointestinal: soft, non-distended, normal bowel sounds, no palpable masses Gastrointestinal - other findings: mild TTP in LUQ Extremities: no cyanosis, no clubbing, no edema Skin: normal turgor, no lesions Neurological: cranial nerve grossly intact, no new deficit Musculoskeletal: normal tone, generalized weakness Psychiatric: oriented to person, oriented to place, somnolent Hosp A/P (1) Severe sepsis with acute organ dysfunction due to Gram negative bacteria Code(s): A41.50 - GRAM-NEGATIVE SEPSIS, UNSPECIFIED; R65.20 - SEVERE SEPSIS WITHOUT SEPTIC SHOCK Status: Acute Plan: Secondary to UTI with E. coli, continue Rocephin, d/c Vancomycin (2) DKA (diabetic ketoacidosis) Code(s): E11.10 - TYPE 2 DIABETES MELLITUS WITH KETOACIDOSIS WITHOUT COMA Status: Acute Plan: Improved, wean off Insulin gtt, start po intake, serial accuchecks (3) JORGE (acute kidney injury) Code(s): N17.9 - ACUTE KIDNEY FAILURE, UNSPECIFIED Status: Acute Plan: Improved, avoid nephrotoxic meds, limit contrast exposure (4) Acute encephalopathy Code(s): G93.40 - ENCEPHALOPATHY, UNSPECIFIED Status: Acute Plan: Secondary to metabolic process, improved, continue supportive mgmt (5) DM type 2, uncontrolled, with neuropathy Code(s): E11.40 - TYPE 2 DIABETES MELLITUS WITH DIABETIC NEUROPATHY, UNSP; E11.65 - TYPE 2 DIABETES MELLITUS WITH HYPERGLYCEMIA Status: Chronic (6) Hyponatremia Code(s): E87.1 - HYPO-OSMOLALITY AND HYPONATREMIA Status: Acute Plan: Improved, continue IVF's, serial Na+ - Plan continue antibiotics, PT/OT, renal social worker, respiratory therapy, out of bed/ ambulate, DVT proph w/SCDs Continue aggressive IVF's Continue Insulin but wean today Continue Rocephin and d/c Vancomycin Await final cx with sensitivities Electrolyte Replacement protocol Start ADA diet today AM lab: BMP, CBC
[2019-09-05] MEDS ORDERED: PROVENTIL INHALER 6.7 G (200 INHALATIONS) INH PRN (09:40)
[2019-09-05 12:17] LABS: Vancomycin, Trough 9.2 ug/mL
[2019-09-05] MEDS: cefTRIAXone\\ROCEPHIN 2 GM in Sodium Chloride 0.9% 100 ML IVPB SCH (12:54)
--- NOTE | 2019-09-05 15:31 | PRG ---
DATE OF SERVICE: 09/05/2019 SUBJECTIVE: Ms. Bird is still somnolent. Apparently, she has sleep apnea and has CPAP at home. She says this was diagnosed in [place]. She has no clue what her pressure settings are. I made rounds on her. She was asleep and she was having hypopnea. OBJECTIVE: VITAL SIGNS: Blood pressure 147/69, respiratory rate 15. LUNGS: Clear. HEART: Regular rhythm. ABDOMEN: Soft, nontender. EXTREMITIES: Without edema. LABORATORY DATA: White count 16.4, hemoglobin 10.9, platelets 136. Sodium 136, potassium 4.1, chloride 109, bicarb 22, BUN 20, creatinine 1.14. IMPRESSION: 1. Asthma with very little in the way of bronchospasm going on at this point in time. 2. Encephalopathy. . 3. Diabetes with history of using insulin pump. 4. Abdominal discomfort that I suspect mediated by a viral illness. She was not tender when I palpated her abdomen today. 5. untreated sleep apnea currently. Her daughter told the nurses apparently that she was not going to bring her CPAP up to the hospital because she had things to do with her kids. We will take a guess and put her on BiPAP when she is asleep. Hopefully, we will gradually see improvement in her mental status. Job ID: [id number]
[2019-09-05] MEDS: Mometasone/Formoterol 120 PUFF INHALER INH SCH (18:46)
[2019-09-05] MEDS: Ondansetron PF 4 MG/2 ML Vial IVP PRN (20:36)
[2019-09-05] MEDS: Montelukast Sodium 10 mg Tablet PO SCH ×2 (20:36→20:50)
[2019-09-05] MEDS ORDERED: Non-Formulary Item 1 EACH (Budesonide-Formoterol [Symbicort 80-4.5] 2 PUFF) INH SCH (21:00)
[2019-09-06] MEDS: HUMULIN R 100 UNITS in Sodium Chloride 0.9% 100 ML IVPB SCH (02:40)
[2019-09-06] MEDS: D5 1/2 NS w/20 mEq KCL 1,000 ML IV PRN (03:35)
[2019-09-06 04:08] LABS: Hemoglobin 11.8 g/dL (12.0-16.0); Mean Corpuscular HGB CONC 33.9 g/dL (32.0-36.0); Mean Corpuscular Hemoglobin 30.4 pg (27.0-31.0); Mean Corpuscular Volume 89.7 fL (78.0-98.0); Mean Platelet Volume 9.1 fL (7.4-10.4); Platelet Count 163 thou/uL (130-400); RBC Distribution Width 14.5 % (11.5-14.5); Red Blood Cell (RBC) Count 3.88 mill/uL (4.20-5.40); White Blood Cell (WBC) Count 13.4 thou/uL (4.8-10.8)
[2019-09-06 04:12] LABS: Anion Gap 11 mmol/L (10-20); BUN (Urea Nitrogen) 12 mg/dL (9.8-20.1); Calc. Creatinine Clearance 140 mL/min (70-130); Carbon Dioxide 21 mmol/L (22-29); Chloride 108 mmol/L (98-107); Estimated GFR-MDRD 66; Glucose 116 mg/dL (70-105); Potassium 3.7 mmol/L (3.5-5.1); Sodium 136 mmol/L (136-145)
[2019-09-06 04:40] LABS: Band 5 % (5-11); Eosinophils 4 % (0-10); Lymphocytes 16 % (21-51); MDiff Complete? YES; Monocytes 17 % (0-10); Neutrophil 58 % (42-75); Platelet Morphology Comment Appears Adequate; RBC Morphology Normal
[2019-09-06] MEDS: Mometasone/Formoterol 120 PUFF INHALER INH SCH ×2 (07:52→19:49)
[2019-09-06] MEDS: Aspirin Chewable 81 MG TAB PO SCH (08:15)
[2019-09-06] MEDS: Famotidine/PF 20 mg/2ml Vial SLOW IVP SCH ×2 (08:15→21:21)
[2019-09-06] MEDS: cefTRIAXone\\ROCEPHIN 2 GM in Sodium Chloride 0.9% 100 ML IVPB SCH (11:35)
[2019-09-06] MEDS ORDERED: Dextrose 50% Abboject 50 ML SYRINGE IVP PRN (11:54)
[2019-09-06] MEDS ORDERED: Dextrose 5% in Water 1,000 ML IV PRN (11:54)
[2019-09-06] MEDS ORDERED: NPH, Human Insulin Isophane 300 UNIT/3 ML VIAL SC SCH (12:00)
--- NOTE | 2019-09-06 13:20 | PRG ---
DATE OF SERVICE: 09/06/2019 SUBJECTIVE: The patient is awake, alert, wanting to go home. OBJECTIVE: VITAL SIGNS: Temperature 97.3, pulse 96, blood pressure 141/70, and O2 saturation 91%. HEENT: Unremarkable. NECK: No JVD. LUNGS: Clear. CARDIAC: S1 and S2, regular. ABDOMEN: Soft. EXTREMITIES: No edema. ASSESSMENT: 1. Asthma. 2. Diabetes. PLAN: Restart her Zoloft. She is probably stable for discharge. Job ID: [id number]
--- NOTE | 2019-09-06 13:30 | PRG ---
VOID NOTE MTDD
--- NOTE | 2019-09-06 15:13 | PDOC.HOSPP ---
- Subjective Encounter Date: 09/06/19 Encounter Time: 11:50 Subjective: tolerating her diet, but feels nauseated. still on insulin gtt, AG closed. d/w RN. Appreciate her help. - Objective Vital Signs & Weight: Vital Signs (12 hours) Temp Pulse Resp Pulse Ox 09/06/19 11:33 97.3 F L 09/06/19 07:54 95 09/06/19 07:53 97 09/06/19 07:52 95 20 95 09/06/19 07:25 97.7 F 09/06/19 03:49 98.2 F Weight Admit Weight 282 lb 6.4 oz Weight 288 lb 1.001 oz Most Recent Monitor Data Heart Rate from ECG 96 NIBP 141/70 NIBP BP-Mean 93 Respiration from ECG 27 SpO2 91 I&O: 09/05/19 09/06/19 09/07/19 06:59 06:59 06:59 Intake Total 5435 3644 1375 Output Total 2640 4400 2100 Balance 6197 -667 -075 Result Diagrams: 09/06/19 03:20 09/06/19 03:20 Additional Labs: Accuchecks 09/06/19 09/06/19 09/06/19 13:08 11:08 10:09 POC Glucose 257 H 253 H 239 H 09/06/19 09/06/19 09/06/19 09:13 08:04 06:59 POC Glucose 258 H 211 H 180 H 09/06/19 09/06/19 09/06/19 05:58 05:15 04:07 POC Glucose 173 H 169 H 128 H 09/06/19 09/06/19 09/06/19 03:02 02:04 00:56 POC Glucose 110 126 H 157 H 09/06/19 09/05/19 09/05/19 00:05 23:04 22:09 POC Glucose 187 H 237 H 227 H 09/05/19 09/05/19 09/05/19 21:04 20:11 19:02 POC Glucose 263 H 285 H 258 H 09/05/19 09/05/19 09/05/19 18:17 17:24 16:22 POC Glucose 248 H 260 H 267 H 09/05/19 15:19 POC Glucose 213 H Hospitalist ROS - Medication Medications: Active Medications Generic Name Dose Route Start Last Admin Trade Name Freq PRN Reason Stop Dose Admin Acetaminophen 1,000 mg 09/03/19 19:40 09/05/19 14:11 Tylenol PO 1,000 mg Q6H PRN Administration Mild Pain (1-3) Aspirin 81 mg 09/06/19 09:00 09/06/19 08:15 Aspirin Chewable PO 81 mg DAILY SONIA Administration Famotidine 20 mg 09/03/19 21:00 09/06/19 08:15 Pepcid SLOW IVP 20 mg Q12HR SONIA Administration Ceftriaxone Sodium 2 gm/ 100 mls @ 200 mls/hr 09/04/19 12:00 09/06/19 11:35 Sodium Chloride IVPB 100 mls 1200 SONIA Administration Mometasone Furoate/Formoterol Fumar 2 puff 09/05/19 18:30 09/06/19 07:52 Dulera 100 Mcg/5 Mcg Inhaler INH 2 puff BID-RT SONIA Administration Montelukast Sodium 10 mg 09/05/19 21:00 09/05/19 20:50 Singulair PO 10 mg HS SONIA Administration Nitroglycerin 0.4 mg 09/04/19 20:21 09/04/19 21:01 Nitrostat SL 0.4 mg Q5MIN PRN Administration Chest Pain Ondansetron HCl 4 mg 09/03/19 19:40 09/05/19 20:36 Zofran IVP 4 mg Q6H PRN Administration Nausea/Vomiting Sodium Chloride 10 ml 09/05/19 21:00 09/06/19 08:16 Flush - Normal Saline IVF 10 ml Q12HR SONIA Administration - Exam General Appearance: NAD, awake alert Eye: PERRL ENT: normocephalic atraumatic Neck: supple Heart: RRR Respiratory: CTAB Gastrointestinal: normal bowel sounds, no palpable masses Neurological: cranial nerve grossly intact, no focal deficits Hosp A/P - Plan (1) Severe sepsis with acute organ dysfunction due to Gram negative bacteria Code(s): A41.50 - GRAM-NEGATIVE SEPSIS, UNSPECIFIED; R65.20 - SEVERE SEPSIS WITHOUT SEPTIC SHOCK Status: Acute Plan: Secondary to UTI with E. coli, continue Rocephin, d/c Vancomycin (2) DKA (diabetic ketoacidosis) Code(s): E11.10 - TYPE 2 DIABETES MELLITUS WITH KETOACIDOSIS WITHOUT COMA Status: Acute Plan: Improved, wean off Insulin gtt, start po intake, serial accuchecks (3) JORGE (acute kidney injury) Code(s): N17.9 - ACUTE KIDNEY FAILURE, UNSPECIFIED Status: Acute Plan: Improved, avoid nephrotoxic meds, limit contrast exposure (4) Acute encephalopathy Code(s): G93.40 - ENCEPHALOPATHY, UNSPECIFIED Status: Acute Plan: Secondary to metabolic process, improved, continue supportive mgmt (5) DM type 2, uncontrolled, with neuropathy Code(s): E11.40 - TYPE 2 DIABETES MELLITUS WITH DIABETIC NEUROPATHY, UNSP; E11.65 - TYPE 2 DIABETES MELLITUS WITH HYPERGLYCEMIA Status: Chronic (6) Hyponatremia Code(s): E87.1 - HYPO-OSMOLALITY AND HYPONATREMIA Status: Acute Plan: Improved, continue IVF's, serial Na+ - Plan continue antibiotics, PT/OT, healthcare social worker, respiratory therapy, out of bed/ ambulate, DVT proph w/SCDs Continue aggressive IVF's Continue Insulin but wean today Continue Rocephin and d/c Vancomycin Await final cx with sensitivities Electrolyte Replacement protocol stop patti gtt -scheduled insulin, SSI -fw on a1c ADA diet PT consult pt lives w.. family.
[2019-09-06] MEDS: HumaLOG 300 UNITS/3 ML VIAL SC PRN (17:16)
[2019-09-06] MEDS: Acetaminophen 500 MG TAB PO PRN (18:53)
[2019-09-06] MEDS: Montelukast Sodium 10 mg Tablet PO SCH (21:21)
[2019-09-06] MEDS: NPH, Human Insulin Isophane 300 UNIT/3 ML VIAL SC SCH (21:22)
[2019-09-07 04:16] LABS: Anion Gap 15 mmol/L (10-20); BUN (Urea Nitrogen) 13 mg/dL (9.8-20.1); Calc. Creatinine Clearance 120 mL/min (70-130); Calcium 8.5 mg/dL (7.8-10.44); Carbon Dioxide 23 mmol/L (22-29); Chloride 105 mmol/L (98-107); Estimated GFR-MDRD 55; Glucose 314 mg/dL (70-105); Potassium 3.9 mmol/L (3.5-5.1); Sodium 139 mmol/L (136-145)
[2019-09-07 04:21] LABS: Band 11 % (5-11); Eosinophils 1 % (0-10); Hemoglobin 11.7 g/dL (12.0-16.0); Lymphocytes 15 % (21-51); MDiff Complete? YES; Mean Corpuscular HGB CONC 32.4 g/dL (32.0-36.0); Mean Corpuscular Hemoglobin 28.7 pg (27.0-31.0); Mean Corpuscular Volume 88.8 fL (78.0-98.0); Mean Platelet Volume 9.1 fL (7.4-10.4); Monocytes 10 % (0-10); Neutrophil 62 % (42-75); Platelet Count 221 thou/uL (130-400); Platelet Morphology Comment Appears Adequate; Promyelocytes 1 % (0-0); RBC Distribution Width 14.8 % (11.5-14.5); RBC Morphology Normal; Red Blood Cell (RBC) Count 4.06 mill/uL (4.20-5.40); White Blood Cell (WBC) Count 14.6 thou/uL (4.8-10.8)
[2019-09-07] MEDS: HumaLOG 300 UNITS/3 ML VIAL SC PRN ×3 (06:29→17:05)
[2019-09-07] MEDS: Mometasone/Formoterol 120 PUFF INHALER INH SCH ×2 (07:25→18:17)
[2019-09-07] MEDS: Aspirin Chewable 81 MG TAB PO SCH (07:38)
[2019-09-07] MEDS: NPH, Human Insulin Isophane 300 UNIT/3 ML VIAL SC SCH (07:39)
[2019-09-07] MEDS: Famotidine/PF 20 mg/2ml Vial SLOW IVP SCH ×2 (07:40→20:51)
[2019-09-07] MEDS: cefTRIAXone\\ROCEPHIN 2 GM in Sodium Chloride 0.9% 100 ML IVPB SCH (11:27)
[2019-09-07] MEDS ORDERED: Insulin Glargine 15 UNITS in Pre-Filled Syringe 1 EACH SC ONE (11:30)
[2019-09-07 11:34] LABS: Hemoglobin A1c 13.4 % (4.0-6.0)
--- NOTE | 2019-09-07 12:57 | PRG ---
DATE OF SERVICE: 09/07/2019 SUBJECTIVE: She is up in chair, feels good, wants to go home. OBJECTIVE: VITAL SIGNS: Temperature 96.4, pulse 80, blood pressure 163/76. HEENT: Unremarkable. NECK: No adenopathy or JVD. LUNGS: Clear anteriorly. CARDIAC: S1 and S2. Regular. ABDOMEN: Obese, soft, nontender. EXTREMITIES: No edema. LABORATORY DATA: White blood cell count 14.6, hematocrit 36, and platelet count 221. Sodium 139, potassium 3.9, BUN 13, creatinine 1.0, glucose generally running in the 200s or 300s. ASSESSMENT: 1. Type 2 diabetes with uncontrolled blood sugar. 2. Asthma. PLAN: Steroids have been stopped. The patient needs stricter control of blood sugars. She is stable for transfer to the medical floor. Job ID: [id number]
--- NOTE | 2019-09-07 16:37 | PDOC.HOSPP ---
- Subjective Encounter Date: 09/07/19 Encounter Time: 11:45 Subjective: Her BG and wbcs is high; a1c 13.4; pt is sleeping soundly, d/w RN, will slowly uptitrate her insulin. - Objective Vital Signs & Weight: Vital Signs (12 hours) Temp Pulse Ox 09/07/19 15:24 96.6 F L 09/07/19 11:21 96.4 F L 09/07/19 08:00 95 09/07/19 07:25 96.9 F L 09/07/19 04:39 91 L Weight Admit Weight 282 lb 6.4 oz Weight 288 lb 1.001 oz Most Recent Monitor Data Heart Rate from ECG 90 NIBP 161/54 NIBP BP-Mean 89 Respiration from ECG 21 SpO2 96 I&O: 09/06/19 09/07/19 09/08/19 06:59 06:59 06:59 Intake Total 3644 2575 Output Total 3475 517 700 Balance -401 -2600 -700 Result Diagrams: 09/07/19 03:23 09/07/19 03:23 Additional Labs: Accuchecks 09/07/19 09/07/19 09/06/19 10:41 06:31 20:45 POC Glucose 380 H 292 H 292 H 09/06/19 16:44 POC Glucose 272 H Hospitalist ROS - Medication Medications: Active Medications Generic Name Dose Route Start Last Admin Trade Name Freq PRN Reason Stop Dose Admin Acetaminophen 1,000 mg 09/03/19 19:40 09/06/19 18:53 Tylenol PO 1,000 mg Q6H PRN Administration Mild Pain (1-3) Aspirin 81 mg 09/06/19 09:00 09/07/19 07:38 Aspirin Chewable PO 81 mg DAILY SONIA Administration Famotidine 20 mg 09/03/19 21:00 09/07/19 07:40 Pepcid SLOW IVP 20 mg Q12HR SONIA Administration Ceftriaxone Sodium 2 gm/ 100 mls @ 200 mls/hr 09/04/19 12:00 09/07/19 11:27 Sodium Chloride IVPB 100 mls 1200 SONIA Administration Mometasone Furoate/Formoterol Fumar 2 puff 09/05/19 18:30 09/07/19 07:25 Dulera 100 Mcg/5 Mcg Inhaler INH 2 puff BID-RT SONIA Administration Montelukast Sodium 10 mg 09/05/19 21:00 09/06/19 21:21 Singulair PO 10 mg HS SONIA Administration Nitroglycerin 0.4 mg 09/04/19 20:21 09/04/19 21:01 Nitrostat SL 0.4 mg Q5MIN PRN Administration Chest Pain Ondansetron HCl 4 mg 09/03/19 19:40 09/05/19 20:36 Zofran IVP 4 mg Q6H PRN Administration Nausea/Vomiting Sertraline HCl 50 mg 09/07/19 09:00 09/07/19 07:38 Zoloft PO 50 mg DAILY SONIA Administration Sodium Chloride 10 ml 09/05/19 21:00 09/07/19 07:39 Flush - Normal Saline IVF 10 ml Q12HR SONIA Administration - Exam General Appearance: NAD, awake alert Eye: PERRL, anicteric sclera ENT: normocephalic atraumatic Neck: supple Respiratory: CTAB Gastrointestinal: soft, normal bowel sounds Hosp A/P - Plan (1) Severe sepsis with acute organ dysfunction due to Gram negative bacteria Code(s): A41.50 - GRAM-NEGATIVE SEPSIS, UNSPECIFIED; R65.20 - SEVERE SEPSIS WITHOUT SEPTIC SHOCK Status: Acute Plan: Secondary to UTI with E. coli, continue Rocephin, d/c Vancomycin (2) DKA (diabetic ketoacidosis) Code(s): E11.10 - TYPE 2 DIABETES MELLITUS WITH KETOACIDOSIS WITHOUT COMA Status: Acute Plan: Improved, wean off Insulin gtt, start po intake, serial accuchecks (3) JORGE (acute kidney injury) Code(s): N17.9 - ACUTE KIDNEY FAILURE, UNSPECIFIED Status: Acute Plan: Improved, avoid nephrotoxic meds, limit contrast exposure (4) Acute encephalopathy Code(s): G93.40 - ENCEPHALOPATHY, UNSPECIFIED Status: Acute Plan: Secondary to metabolic process, improved, continue supportive mgmt (5) DM type 2, uncontrolled, with neuropathy Code(s): E11.40 - TYPE 2 DIABETES MELLITUS WITH DIABETIC NEUROPATHY, UNSP; E11.65 - TYPE 2 DIABETES MELLITUS WITH HYPERGLYCEMIA Status: Chronic (6) Hyponatremia Code(s): E87.1 - HYPO-OSMOLALITY AND HYPONATREMIA Status: Acute Plan: Improved, continue IVF's, serial Na+ - Plan continue antibiotics, PT/OT, social work assistant, respiratory therapy, out of bed/ ambulate, DVT proph w/SCDs Continue aggressive IVF's Continue Insulin but wean today Continue Rocephin and d/c Vancomycin Await final cx with sensitivities Electrolyte Replacement protocol stop patti gtt -scheduled insulin, SSI -fw on a1c ADA diet PT consult pt lives w.. family. Uncont DMw w.. a1c of 13.4 -pt takes glargine 170 units in am and U-500 and lingliptin. -not comfortable giginv 170 units with her BG mostly in 200 range in the last 24hrs -will do glargine bid and uptitrate as BP allows -would benefit with ENdo consult? -stable to transfer to floor -p therapy follows.
--- NOTE | 2019-09-07 18:24 | RAD ---
EXAM: CHEST ONE VIEW: History: High white blood cell count, concern for infection. FINDINGS: Poor inspiration with some patchy interstitial and fine alveolar opacity changes noted in the perihil ar regions with blunting of the costophrenic angles, possibly small effusions. Borderline heart size. IMPRESSION: Bilateral perihilar opacities, slightly worse on the right side. Probable small pleural effusions. Co ntinued short term follow up. POS: RRE
[2019-09-07] MEDS: Insulin Glargine 20 UNITS in Pre-Filled Syringe 1 EACH SC SCH (20:51)
[2019-09-07] MEDS: Montelukast Sodium 10 mg Tablet PO SCH (20:51)
[2019-09-07] MEDS ORDERED: NPH, Human Insulin Isophane 300 UNIT/3 ML VIAL SC SCH (21:00)
[2019-09-07] MEDS ORDERED: Insulin Glargine 15 UNITS in Pre-Filled Syringe 1 EACH SC SCH (21:00)
[2019-09-08] MEDS: Ondansetron ODT 4 MG TAB PO PRN ×2 (04:46→17:59)
[2019-09-08 05:51] LABS: Hemoglobin A1c 13.2 % (4.0-6.0)
[2019-09-08 06:04] LABS: Band 13 % (5-11); Eosinophils 5 % (0-10); Hemoglobin 11.2 g/dL (12.0-16.0); Lymphocytes 19 % (21-51); MDiff Complete? YES; Mean Corpuscular HGB CONC 32.6 g/dL (32.0-36.0); Mean Corpuscular Volume 88.8 fL (78.0-98.0); Mean Platelet Volume 8.7 fL (7.4-10.4); Monocytes 12 % (0-10); Neutrophil 51 % (42-75); Platelet Count 281 thou/uL (130-400); Platelet Morphology Comment Appears Adequate; RBC Distribution Width 14.6 % (11.5-14.5); Red Blood Cell (RBC) Count 3.86 mill/uL (4.20-5.40); White Blood Cell (WBC) Count 14.6 thou/uL (4.8-10.8)
[2019-09-08 06:13] LABS: Anion Gap 14 mmol/L (10-20); BUN (Urea Nitrogen) 14 mg/dL (9.8-20.1); Calc. Creatinine Clearance 123 mL/min (70-130); Calcium 8.7 mg/dL (7.8-10.44); Carbon Dioxide 27 mmol/L (22-29); Chloride 103 mmol/L (98-107); Estimated GFR-MDRD 57; Glucose 295 mg/dL (70-105); Potassium 3.9 mmol/L (3.5-5.1); Sodium 140 mmol/L (136-145)
[2019-09-08] MEDS: HumaLOG 300 UNITS/3 ML VIAL SC PRN ×4 (06:39→21:19)
[2019-09-08] MEDS: Mometasone/Formoterol 120 PUFF INHALER INH SCH ×2 (08:15→18:48)
[2019-09-08] MEDS: Insulin Glargine 20 UNITS in Pre-Filled Syringe 1 EACH SC SCH (08:30)
[2019-09-08] MEDS: Famotidine/PF 20 mg/2ml Vial SLOW IVP SCH ×2 (08:31→21:15)
[2019-09-08] MEDS: Aspirin Chewable 81 MG TAB PO SCH (08:31)
--- NOTE | 2019-09-08 08:54 | EKG ---
Test Reason : STAT Blood Pressure : / mmHG Vent. Rate : 099 BPM Atrial Rate : 099 BPM P-R Int : 152 ms QRS Dur : 152 ms QT Int : 440 ms P-R-T Axes : 030 021 -04 degrees QTc Int : 564 ms Normal sinus rhythm Right bundle branch block Inferior infarct , age undetermined cannot be excluded Abnormal ECG Confirmed by ARPIT JOHN ([id number]) on 09/08/2019 8:54:26 AM Referred By: JOEL Confirmed By:ARPIT JOHN
[2019-09-08] MEDS ORDERED: Insulin Glargine 15 UNITS in Pre-Filled Syringe 1 EACH SC SCH (09:00)
[2019-09-08 09:47] LABS: Anion Gap 13 mmol/L (10-20); BUN (Urea Nitrogen) 13 mg/dL (9.8-20.1); Calc. Creatinine Clearance 112 mL/min (70-130); Calcium 8.9 mg/dL (7.8-10.44); Carbon Dioxide 27 mmol/L (22-29); Chloride 103 mmol/L (98-107); Estimated GFR-MDRD 51; Glucose 339 mg/dL (70-105); Potassium 3.7 mmol/L (3.5-5.1); Sodium 139 mmol/L (136-145)
[2019-09-08] MEDS ORDERED: Carvedilol 6.25 MG TAB PO SCH (11:00)
[2019-09-08] MEDS: cefTRIAXone\\ROCEPHIN 2 GM in Sodium Chloride 0.9% 100 ML IVPB SCH (11:30)
--- NOTE | 2019-09-08 13:16 | PDOC.HOSPP ---
- Subjective Encounter Date: 09/08/19 Encounter Time: 10:15 Subjective: pt looks much better, dressedup; she doesnot remember much what happened last 2 days. 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 would be able to ambulate w.. walker. D/w RN. - Objective Vital Signs & Weight: Vital Signs (12 hours) Temp Pulse Resp BP BP Pulse Ox 09/08/19 11:30 148/68 H 09/08/19 11:08 98.5 F 76 20 148/68 H 94 L 09/08/19 08:35 98.4 F 86 14 166/65 H 95 09/08/19 08:30 95 09/08/19 08:15 76 16 94 L 09/08/19 03:16 97.7 F 76 14 158/84 H 95 Weight Admit Weight 282 lb 6.4 oz Weight 288 lb 1.001 oz Most Recent Monitor Data Heart Rate from ECG 86 NIBP 143/64 NIBP BP-Mean 90 Respiration from ECG 22 SpO2 90 I&O: 09/07/19 09/08/19 09/09/19 06:59 06:59 06:59 Intake Total 2575 970 Output Total 5175 2350 Balance -2600 -1380 Result Diagrams: 09/08/19 04:54 09/08/19 09:08 Additional Labs: Accuchecks 09/07/19 09/07/19 20:21 16:41 POC Glucose 262 H 266 H Hospitalist ROS - Medication Medications: Active Medications Generic Name Dose Route Start Last Admin Trade Name Freq PRN Reason Stop Dose Admin Acetaminophen 1,000 mg 09/03/19 19:40 09/06/19 18:53 Tylenol PO 1,000 mg Q6H PRN Administration Mild Pain (1-3) Aspirin 81 mg 09/06/19 09:00 09/08/19 08:31 Aspirin Chewable PO 81 mg DAILY SONIA Administration Famotidine 20 mg 09/03/19 21:00 09/08/19 08:31 Pepcid SLOW IVP 20 mg Q12HR SONIA Administration Ceftriaxone Sodium 2 gm/ 100 mls @ 200 mls/hr 09/04/19 12:00 09/08/19 11:30 Sodium Chloride IVPB 100 mls 1200 SONIA Administration Insulin Human Lispro 0 units 09/07/19 11:25 09/08/19 11:30 Humalog SC 11 unit .AGGRESSIVE SLIDING PRN Administration AGGRESSIVE SLIDING SCALE Protocol Mometasone Furoate/Formoterol Fumar 2 puff 09/05/19 18:30 09/08/19 08:15 Dulera 100 Mcg/5 Mcg Inhaler INH 2 puff BID-RT SONIA Administration Montelukast Sodium 10 mg 09/05/19 21:00 09/07/19 20:51 Singulair PO 10 mg HS SONIA Administration Nitroglycerin 0.4 mg 09/04/19 20:21 09/04/19 21:01 Nitrostat SL 0.4 mg Q5MIN PRN Administration Chest Pain Ondansetron HCl 4 mg 09/03/19 19:40 09/08/19 04:46 Zofran Odt PO 4 mg Q6H PRN Administration Nausea/Vomiting Ondansetron HCl 4 mg 09/03/19 19:40 09/05/19 20:36 Zofran IVP 4 mg Q6H PRN Administration Nausea/Vomiting Sertraline HCl 50 mg 09/07/19 09:00 09/08/19 08:33 Zoloft PO 50 mg DAILY SONIA Administration Sodium Chloride 10 ml 09/05/19 21:00 09/08/19 08:31 Flush - Normal Saline IVF 10 ml Q12HR SONIA Administration - Exam General Appearance: NAD, awake alert Eye: PERRL ENT: normocephalic atraumatic, no oropharyngeal lesions Neck: symmetric, no carotid bruit Heart: RRR, normal peripheral pulses Respiratory: CTAB, no ronchi, no tachypnea Gastrointestinal: soft, normal bowel sounds Extremities: no cyanosis Neurological: no focal deficits Hosp A/P - Plan (1) Severe sepsis with acute organ dysfunction due to Gram negative bacteria Code(s): A41.50 - GRAM-NEGATIVE SEPSIS, UNSPECIFIED; R65.20 - SEVERE SEPSIS WITHOUT SEPTIC SHOCK Status: Acute Plan: Secondary to UTI with E. coli, continue Rocephin, d/c Vancomycin (2) DKA (diabetic ketoacidosis) Code(s): E11.10 - TYPE 2 DIABETES MELLITUS WITH KETOACIDOSIS WITHOUT COMA Status: Acute Plan: Improved, wean off Insulin gtt, start po intake, serial accuchecks (3) JORGE (acute kidney injury) Code(s): N17.9 - ACUTE KIDNEY FAILURE, UNSPECIFIED Status: Acute Plan: Improved, avoid nephrotoxic meds, limit contrast exposure (4) Acute encephalopathy Code(s): G93.40 - ENCEPHALOPATHY, UNSPECIFIED Status: Acute Plan: Secondary to metabolic process, improved, continue supportive mgmt (5) DM type 2, uncontrolled, with neuropathy Code(s): E11.40 - TYPE 2 DIABETES MELLITUS WITH DIABETIC NEUROPATHY, UNSP; E11.65 - TYPE 2 DIABETES MELLITUS WITH HYPERGLYCEMIA Status: Chronic (6) Hyponatremia Code(s): E87.1 - HYPO-OSMOLALITY AND HYPONATREMIA Status: Acute Plan: Improved, continue IVF's, serial Na+ - Plan continue antibiotics, PT/OT, secondary social studies teacher, respiratory therapy, out of bed/ ambulate, DVT proph w/SCDs Uncont DMw w.. a1c of 13.4 -pt takes glargine 170 units in am and U-500 and linagliptin. -managed by local tile and marble setter. -will do glargine bid and uptitrate as BG allows -p therapy follows. would be able to ambulate w.. walker. D/w RN. may not be able to correct BG to the dot. as she has long standing uncont'd diabetes - on ext'l insulin pump, PO meds etc.. -can resume home regimen upon dc and fw w.. her tile and marble setter. prob dc in 1 to 2 days Dtr, grandson lives w.. her.
[2019-09-08 15:44] VITALS: BMI 46.5
[2019-09-08] MEDS: Carvedilol 6.25 MG TAB PO SCH (21:16)
[2019-09-08] MEDS: Montelukast Sodium 10 mg Tablet PO SCH (21:16)
[2019-09-08] MEDS: Insulin Glargine 30 UNITS in Pre-Filled Syringe 1 EACH SC SCH (21:16)
[2019-09-09 05:35] LABS: Anion Gap 11 mmol/L (10-20); BUN (Urea Nitrogen) 14 mg/dL (9.8-20.1); Calc. Creatinine Clearance 121 mL/min (70-130); Calcium 8.2 mg/dL (7.8-10.44); Carbon Dioxide 28 mmol/L (22-29); Chloride 103 mmol/L (98-107); Estimated GFR-MDRD 55; Glucose 249 mg/dL (70-105); Potassium 4.4 mmol/L (3.5-5.1); Sodium 138 mmol/L (136-145)
[2019-09-09 05:47] LABS: Band 3 % (5-11); Eosinophils 1 % (0-10); Hemoglobin 9.9 g/dL (12.0-16.0); Hypochromia SLIGHT = 6-15 cells (100X) (0-5/hpf); Lymphocytes 12 % (21-51); MDiff Complete? YES; Mean Corpuscular HGB CONC 32.4 g/dL (32.0-36.0); Mean Corpuscular Hemoglobin 28.7 pg (27.0-31.0); Mean Corpuscular Volume 88.8 fL (78.0-98.0); Mean Platelet Volume 8.2 fL (7.4-10.4); Monocytes 4 % (0-10); Neutrophil 80 % (42-75); Platelet Count 289 thou/uL (130-400); Platelet Morphology Comment Appears Adequate; RBC Distribution Width 14.8 % (11.5-14.5); Red Blood Cell (RBC) Count 3.43 mill/uL (4.20-5.40); Target Cells SLIGHT = 2-5 cells (100X) (0-1/hpf); White Blood Cell (WBC) Count 13.8 thou/uL (4.8-10.8)
[2019-09-09] MEDS: HumaLOG 300 UNITS/3 ML VIAL SC PRN ×2 (06:23→11:33)
[2019-09-09] MEDS: Mometasone/Formoterol 120 PUFF INHALER INH SCH (07:25)
[2019-09-09] MEDS: Insulin Glargine 30 UNITS in Pre-Filled Syringe 1 EACH SC SCH (08:23)
[2019-09-09] MEDS: Aspirin Chewable 81 MG TAB PO SCH (08:24)
[2019-09-09] MEDS: Famotidine/PF 20 mg/2ml Vial SLOW IVP SCH (08:24)
[2019-09-09] MEDS: Carvedilol 6.25 MG TAB PO SCH (08:24)
[2019-09-09 10:39] VITALS: BP 112/67; TEMP 98.2
[2019-09-09 11:00] LABS: #Basophils 0.1 thou/uL (0.0-0.2); #Eosinphils 0.2 thou/uL (0.0-0.7); #Lymphocytes 2.4 thou/uL (1.20-3.40); #Monocytes 1.4 thou/uL (0.11-0.59); #Neutrophils 8.9 thou/uL (1.40-6.50); %Basophils 0.8 % (0.0-1.0); %Eosinophils 1.8 % (0.0-10.0); %Lymphocytes 18.5 % (21.0-51.0); %Monocytes 10.5 % (0.0-10.0); %Neutrophils 68.3 % (42.0-75.0); Hemoglobin 11.2 g/dL (12.0-16.0); Mean Corpuscular HGB CONC 32.3 g/dL (32.0-36.0); Mean Corpuscular Hemoglobin 28.8 pg (27.0-31.0); Mean Corpuscular Volume 89.3 fL (78.0-98.0); Platelet Count 334 thou/uL (130-400); RBC Distribution Width 14.9 % (11.5-14.5); Red Blood Cell (RBC) Count 3.89 mill/uL (4.20-5.40); White Blood Cell (WBC) Count 13.1 thou/uL (4.8-10.8)
[2019-09-09] MEDS: cefTRIAXone\\ROCEPHIN 2 GM in Sodium Chloride 0.9% 100 ML IVPB SCH (11:34)
--- NOTE | 2019-09-10 03:16 | DIS ---
DATE OF ADMISSION: 09/03/2019 DATE OF DISCHARGE: 09/09/2019 DISCHARGE DIAGNOSES: 1. Severe sepsis secondary to gram-negative bacteria due to urinary tract infection. 2. Escherichia coli urinary tract infection. 3. Diabetic ketoacidosis. 4. Acute kidney injury. 5. Acute encephalopathy. 6. Uncontrolled type 2 diabetes mellitus with A1c of 13.4. 7. Hyponatremia. DISCHARGE MEDICATIONS: 1. Levaquin 750 mg daily for 5 days. 2. Albuterol sulfate two puffs inhalation q.6 hours as needed. 3. Aspirin 81 mg daily. 4. Symbicort two puffs twice a day. 5. Singulair 10 mg at bedtime. 6. Amlodipine 10 mg daily. 7. Lipitor 40 mg at bedtime. 8. Biotin 1 tablet daily. 9. Coreg 12.5 mg twice a day. 10. Vitamin D3 of 2500 units daily. 11. Folic acid 1 mg daily. 12. Hydrochlorothiazide 25 mg daily. 13. Insulin 170 units, glargine in the morning, and Humulin U-500 one unit as directed. 14. Linagliptin 5 mg daily. 15. Nitroglycerin 0.4 as needed. 16. Zoloft 50 mg daily. 17. Spironolactone 25 mg daily. HOSPITAL COURSE: A 59-year-old female admitted with severe sepsis secondary to UTI with E coli. She also had DKA and managed with DKA protocol. She improved over the time. However, her blood glucose was very difficult to control. Her A1c was 13.6. She has local hall director and she follows with him. Acute kidney injury, improved after sufficient hydration. The patient had encephalopathy secondary to DKA hyperglycemia that resolved and within 24 hours she was back to baseline mentation. She also had hypo-osmolality hyponatremia that was corrected as well. She had physical therapy evaluation and she is ambulating back to her baseline. She is clinically sound enough to be discharged home today. DISCHARGE INSTRUCTIONS: Activity as tolerated. DIET: Diabetic diet. FOLLOWUP: Follow up with primary care physician in one week. Follow up with hall director within 2 weeks. TIME SPENT: Discharge time took over 30 minutes. Job ID: [id number] [id number]
== END 2019-09-09 14:42 | disposition home or self-care (01) | DRG 871 ==
LOC: ERS 16:00 → IMCU/EMU 17:59 → SURG B 09-07 22:33
PROVIDERS: ADMIT Family Medicine; ATTEND Family Medicine
DX: A41.51 Sepsis due to Escherichia coli [E. coli] (principal); E11.10 Type 2 diabetes mellitus with ketoacidosis without coma; R65.21 Severe sepsis with septic shock; N39.0 Urinary tract infection, site not specified; N17.9 Acute kidney failure, unspecified; E87.1 Hypo-osmolality and hyponatremia; G93.49 Other encephalopathy; Z68.42 Body mass index [BMI] 45.0-49.9, adult; I25.10 Atherosclerotic heart disease of native coronary artery without angina pectoris; I11.0 Hypertensive heart disease with heart failure; I50.9 Heart failure, unspecified; J44.9 Chronic obstructive pulmonary disease, unspecified; G47.33 Obstructive sleep apnea (adult) (pediatric); M19.90 Unspecified osteoarthritis, unspecified site; F32.9 Major depressive disorder, single episode, unspecified; E66.01 Morbid (severe) obesity due to excess calories; E86.0 Dehydration; E11.40 Type 2 diabetes mellitus with diabetic neuropathy, unspecified; G43.909 Migraine, unspecified, not intractable, without status migrainosus; Z79.4 Long term (current) use of insulin; Z90.49 Acquired absence of other specified parts of digestive tract; Z88.6 Allergy status to analgesic agent; Z88.1 Allergy status to other antibiotic agents; Z88.0 Allergy status to penicillin; Z88.2 Allergy status to sulfonamides; Z88.8 Allergy status to other drugs, medicaments and biological substances; Z91.041 Radiographic dye allergy status
CPT/HCPCS: 36415; 36416; 71045; 80048; 80202; 81001; 82010; 82533; 83036; 83605; 83735; 83880; 84484; 85007; 85025; 85027; 87077; 87086; 87186; 93005; 93010; 94660; 96360; 96361; 96374; 96375; 99292; J0696; J1815; J1885; J2405; J3370; J3490; J7050; Q0162; S0028

== ENCOUNTER 2021-05-26 12:29 | Inpatient (IN) | payer MEDICARE ==
[2021-05-26] MEDS ORDERED: Dextrose 50% Abboject 50 ML SYRINGE SLOW IVP PRN (18:53)
[2021-05-26] MEDS ORDERED: Dextrose 5% in Water 1,000 ML IV PRN (18:53)
[2021-05-26] MEDS ORDERED: Senokot S 8.6-50 MG TAB PO PRN (18:59)
[2021-05-26] MEDS ORDERED: Acetaminophen 325 MG TAB PO PRN (18:59)
[2021-05-26] MEDS ORDERED: Ondansetron PF 4 MG/2 ML Vial IVP PRN (18:59)
[2021-05-26] MEDS ORDERED: Bisacodyl 5 MG TAB PO PRN (18:59)
[2021-05-26] MEDS ORDERED: Melatonin 3 MG TAB PO PRN (19:21)
[2021-05-26] MEDS ORDERED: Enoxaparin Sodium 40 MG/0.4 ML SYRINGE SC SCH (20:00)
[2021-05-26 20:08] LABS: Troponin I Less than 0.010 ng/mL (< 0.028)
[2021-05-26] MEDS ORDERED: Nitroglycerin 0.4 MG TAB (25 Tab Bottle) SL PRN (20:36)
[2021-05-26 20:46] VITALS: BMI 43.8
[2021-05-26] MEDS ORDERED: VANCOMYCIN 2 GRAM/400 ML BAG 2 GM in Premix Bag 1 BAG IVPB SCH (21:00)
[2021-05-26] MEDS: Famotidine/PF 20 mg/2ml Vial SLOW IVP SCH (21:48)
[2021-05-26] MEDS: Cefepime 1 GM in Sodium Chloride 0.9% 100 ML IVPB SCH (21:49)
[2021-05-26] MEDS: HumaLOG 300 UNITS/3 ML VIAL SC PRN (22:09)
[2021-05-26] MEDS ORDERED: Enoxaparin Sodium 80 MG/0.8 ML SYRINGE SC SCH (22:15)
[2021-05-27] MEDS: Sodium Chloride 0.9% 1,000 ML IV SCH ×2 (03:24→09:35)
[2021-05-27 04:42] LABS: #Eosinphils 0.1 thou/uL (0.0-0.7); #Monocytes 0.7 thou/uL (0.11-0.59); #Neutrophils 3.7 thou/uL (1.40-6.50); %Basophils 0.4 % (0.0-1.0); %Eosinophils 1.8 % (0.0-10.0); %Lymphocytes 39.6 % (21.0-51.0); %Monocytes 9.1 % (0.0-10.0); Hemoglobin 12.1 g/dL (12.0-16.0); Mean Corpuscular HGB CONC 33.2 g/dL (32.0-36.0); Mean Corpuscular Volume 93.4 fL (78.0-98.0); Mean Platelet Volume 8.2 fL (7.4-10.4); Platelet Count 214 thou/uL (130-400); RBC Distribution Width 13.2 % (11.5-14.5); White Blood Cell (WBC) Count 7.6 thou/uL (4.8-10.8)
[2021-05-27 04:54] LABS: Hemoglobin A1c 13.4 % (4.0-6.0)
[2021-05-27 05:07] LABS: ALT (SGPT) 22 U/L (8-55); AST (SGOT) 48 U/L (5-34); Alkaline Phosphatase 77 U/L (40-110); Anion Gap 10 mmol/L (10-20); BUN (Urea Nitrogen) 7 mg/dL (9.8-20.1); Bilirubin, Total 0.6 mg/dL (0.2-1.2); Calc. Creatinine Clearance 162 mL/min (70-130); Calcium 8.2 mg/dL (7.8-10.44); Carbon Dioxide 24 mmol/L (23-31); Chloride 108 mmol/L (98-107); Globulin 2.8 g/dL (2.4-3.5); Glucose 202 mg/dL (80-115); Potassium 3.8 mmol/L (3.5-5.1); Protein, Total 5.8 g/dL (5.8-8.1); Sodium 138 mmol/L (136-145)
[2021-05-27] MEDS: HumaLOG 300 UNITS/3 ML VIAL SC PRN ×4 (06:08→20:53)
[2021-05-27] MEDS ORDERED: Non-Formulary Item 1 EACH (Albuterol Sulfate [Proair Hfa] 8.5 GM Hfa.Aer.Ad) INH PRN (07:37)
[2021-05-27] MEDS ORDERED: Albuterol 200 PUFF (6.7GM INHALER) INH PRN (07:44)
[2021-05-27] MEDS ORDERED: Non-Formulary Item 1 EACH (Carvedilol [Carvedilol] 12.5 MG Tablet) PO SCH (09:00)
[2021-05-27] MEDS ORDERED: Non-Formulary Item 1 EACH (Budesonide-Formoterol [Symbicort 80-4.5] 80 MG/4.5 MG Aer) INH SCH (09:00)
[2021-05-27] MEDS ORDERED: Amlodipine 5 MG TAB PO SCH (09:00)
[2021-05-27] MEDS ORDERED: Aspirin 325 mg Enteric Coated Tablet PO SCH (09:00)
[2021-05-27] MEDS ORDERED: Enoxaparin Sodium 120 MG/0.8 ML SYRINGE SC SCH (09:00)
[2021-05-27] MEDS ORDERED: Enoxaparin Sodium 40 MG/0.4 ML SYRINGE SC SCH ×2 (09:00→21:00)
[2021-05-27] MEDS ORDERED: Non-Formulary Item 1 EACH (Sertraline Hcl [Zoloft] 50 MG Tablet) PO SCH (09:00)
[2021-05-27] MEDS: Calcium Carbonate 500 MG ChewTAB PO SCH (09:33)
[2021-05-27] MEDS: Gabapentin 300 MG CAP PO SCH ×2 (09:33→17:02)
[2021-05-27] MEDS: Hydrochlorothiazide 25 MG TAB PO SCH (09:34)
[2021-05-27] MEDS: Montelukast Sodium 10 mg Tablet PO SCH (09:34)
[2021-05-27] MEDS: Aspirin Chewable 81 MG TAB PO SCH (09:34)
[2021-05-27] MEDS: Carvedilol 6.25 MG TAB PO SCH ×2 (09:34→20:52)
[2021-05-27] MEDS: Amlodipine 10 MG TAB PO SCH (09:34)
[2021-05-27] MEDS: Famotidine/PF 20 mg/2ml Vial SLOW IVP SCH ×3 (09:35→23:02)
[2021-05-27] MEDS: Cefepime 1 GM in Sodium Chloride 0.9% 100 ML IVPB SCH ×2 (09:35→20:54)
[2021-05-27] MEDS: VANCOMYCIN 1.25 GM/250 ML BAG 1.25 GM in Premix Bag 1 BAG IVPB SCH ×2 (09:36→23:02)
[2021-05-27 11:55] LABS: SARS-CoV-2 PCR by NAA Not Detected (NotDetected)
[2021-05-27] MEDS ORDERED: HUMULIN R U SC SCH ×2 (17:00→21:00)
[2021-05-27] MEDS: Mometasone 100 MCG/Formoterol 5 MCG 120 PUFF INHALER INH SCH (19:11)
[2021-05-27] MEDS ORDERED: Atorvastatin Calcium 40 MG TAB PO SCH (21:00)
[2021-05-28 05:45] LABS: #Eosinphils 0.1 thou/uL (0.0-0.7); #Lymphocytes 2.3 thou/uL (1.20-3.40); #Monocytes 0.8 thou/uL (0.11-0.59); #Neutrophils 3.4 thou/uL (1.40-6.50); %Basophils 0.5 % (0.0-1.0); %Eosinophils 2.2 % (0.0-10.0); %Lymphocytes 34.3 % (21.0-51.0); %Monocytes 11.4 % (0.0-10.0); %Neutrophils 51.7 % (42.0-75.0); Mean Corpuscular HGB CONC 32.4 g/dL (32.0-36.0); Mean Corpuscular Hemoglobin 30.3 pg (27.0-31.0); Mean Corpuscular Volume 93.5 fL (78.0-98.0); Mean Platelet Volume 8.5 fL (7.4-10.4); Platelet Count 211 thou/uL (130-400); Red Blood Cell (RBC) Count 4.27 mill/uL (4.20-5.40); White Blood Cell (WBC) Count 6.6 thou/uL (4.8-10.8)
[2021-05-28] MEDS: HumaLOG 300 UNITS/3 ML VIAL SC PRN (05:55)
[2021-05-28 06:07] LABS: ALT (SGPT) 20 U/L (8-55); AST (SGOT) 34 U/L (5-34); Albumin 3.1 g/dL (3.4-4.8); Alkaline Phosphatase 83 U/L (40-110); Anion Gap 11 mmol/L (10-20); BUN (Urea Nitrogen) 9 mg/dL (9.8-20.1); Bilirubin, Total 0.5 mg/dL (0.2-1.2); Calc. Creatinine Clearance 149 mL/min (70-130); Calcium 8.7 mg/dL (7.8-10.44); Carbon Dioxide 25 mmol/L (23-31); Chloride 104 mmol/L (98-107); Globulin 3.1 g/dL (2.4-3.5); Glucose 264 mg/dL (80-115); Protein, Total 6.2 g/dL (5.8-8.1); Sodium 136 mmol/L (136-145)
[2021-05-28] MEDS: Mometasone 100 MCG/Formoterol 5 MCG 120 PUFF INHALER INH SCH (06:49)
[2021-05-28] MEDS ORDERED: HUMULIN R U SC SCH (08:00)
[2021-05-28 08:48] LABS: Vancomycin, Trough 13.3 ug/mL
[2021-05-28] MEDS ORDERED: VANCOMYCIN 1.75 GM/350 ML BAG 1.75 GM in Premix Bag 1 BAG IVPB SCH (09:00)
[2021-05-28] MEDS ORDERED: Enoxaparin Sodium 40 MG/0.4 ML SYRINGE SC SCH (09:00)
[2021-05-28] MEDS: Aspirin Chewable 81 MG TAB PO SCH (09:41)
[2021-05-28] MEDS: Calcium Carbonate 500 MG ChewTAB PO SCH (09:41)
[2021-05-28] MEDS: Hydrochlorothiazide 25 MG TAB PO SCH (09:42)
[2021-05-28] MEDS: Carvedilol 6.25 MG TAB PO SCH (09:42)
[2021-05-28] MEDS: Montelukast Sodium 10 mg Tablet PO SCH (09:42)
[2021-05-28] MEDS: Amlodipine 10 MG TAB PO SCH (09:42)
[2021-05-28] MEDS: Cefepime 1 GM in Sodium Chloride 0.9% 100 ML IVPB SCH (09:42)
[2021-05-28] MEDS ORDERED: Regadenoson 0.4 MG/5 ML SYRINGE ONE (10:00)
[2021-05-28] MEDS: VANCOMYCIN 1.25 GM/250 ML BAG 1.25 GM in Premix Bag 1 BAG IVPB SCH (12:49)
[2021-05-28 16:54] VITALS: BP 117/57; TEMP 98.5
== END 2021-05-28 17:59 | disposition home or self-care (01) | DRG 872 ==
LOC: 2SW 12:29 → EDSTATUS 18:00
PROVIDERS: ADMIT Internal Medicine; ATTEND Internal Medicine
DX: A41.9 Sepsis, unspecified organism (principal); Z68.42 Body mass index [BMI] 45.0-49.9, adult; J44.1 Chronic obstructive pulmonary disease with (acute) exacerbation; L97.422 Non-pressure chronic ulcer of left heel and midfoot with fat layer exposed; I82.811 Embolism and thrombosis of superficial veins of right lower extremity; R07.89 Other chest pain; E11.621 Type 2 diabetes mellitus with foot ulcer; G47.33 Obstructive sleep apnea (adult) (pediatric); E66.01 Morbid (severe) obesity due to excess calories; E11.42 Type 2 diabetes mellitus with diabetic polyneuropathy; I25.10 Atherosclerotic heart disease of native coronary artery without angina pectoris; I50.9 Heart failure, unspecified; I11.0 Hypertensive heart disease with heart failure; M19.90 Unspecified osteoarthritis, unspecified site; Z77.22 Contact with and (suspected) exposure to environmental tobacco smoke (acute) (chronic); E11.65 Type 2 diabetes mellitus with hyperglycemia; Z88.0 Allergy status to penicillin; Z88.2 Allergy status to sulfonamides; Z88.8 Allergy status to other drugs, medicaments and biological substances; Z88.6 Allergy status to analgesic agent; Z88.1 Allergy status to other antibiotic agents; Z91.018 Allergy to other foods; Z88.5 Allergy status to narcotic agent; Z79.899 Other long term (current) drug therapy; Z79.82 Long term (current) use of aspirin; Z79.4 Long term (current) use of insulin; Z90.49 Acquired absence of other specified parts of digestive tract; Z90.89 Acquired absence of other organs; Z81.2 Family history of tobacco abuse and dependence; Z80.8 Family history of malignant neoplasm of other organs or systems; Z82.49 Family history of ischemic heart disease and other diseases of the circulatory system
CPT/HCPCS: 36415; 36416; 78452; 80053; 80202; 83036; 83605; 85025; 87086; 93017; 93306; 93970; A9500; J0692; J1650; J1815; J2405; J2785; J3370; J3490; J7050; S0028; U0003; U0005

== ENCOUNTER 2023-12-27 07:10 | Outpatient (CLI) | payer OTHER | END 2023-12-27 07:11 | disposition home or self-care (01) | LOC: BICULT 07:10 | PROVIDERS: ATTEND Family Medicine | DX: R10.32 Left lower quadrant pain (principal) | CPT/HCPCS: 74018; 76700 ==

== ENCOUNTER 2024-07-06 20:53 | Inpatient (IN) | payer OTHER ==
[2024-07-06] MEDS ORDERED: Ketorolac Tromethamine 30 MG (1 mL) VIAL ONE (21:50)
[2024-07-06 21:58] LABS: #Basophils 0.05 10x3/uL (0.0-0.2); %Basophils 0.4 % (0.0-1.0); %Eosinophils 1.2 % (0.0-10.0); %Lymphocytes 24.9 % (21.0-51.0); %Neutrophils 63.2 % (42.0-75.0); Hematocrit 34.3 % (36.0-47.0); Hemoglobin 11.2 g/dL (12.0-16.0); Mean Corpuscular HGB CONC 32.7 g/dL (32.0-36.0); Mean Corpuscular Hemoglobin 28.4 pg (27.0-31.0); Mean Corpuscular Volume 86.8 fL (78.0-98.0); Mean Platelet Volume 9.5 fL (7.4-10.4); Platelet Count 374 10x3/uL (130-400); RBC Distribution Width 14.7 % (11.5-14.5); Red Blood Cell (RBC) Count 3.95 mill/uL (4.20-5.40)
[2024-07-06 22:19] LABS: ALT (SGPT) 16 U/L (8-55); AST (SGOT) 26 U/L (5-34); Albumin 2.9 g/dL (3.4-4.8); Alkaline Phosphatase 73 U/L (40-110); Anion Gap 17 mmol/L (10-20); BUN (Urea Nitrogen) 29 mg/dL (9.8-20.1); Bilirubin, Total 0.3 mg/dL (0.2-1.2); Calc. Creatinine Clearance 0 mL/min (70-130); Calcium 9.8 mg/dL (7.8-10.44); Carbon Dioxide 26 mmol/L (23-31); Chloride 101 mmol/L (98-107); Estimated GFR 52; Globulin 5.7 g/dL (2.4-3.5); Glucose 116 mg/dL (80-115); Potassium 3.7 mmol/L (3.5-5.1); Protein, Total 8.6 g/dL (5.8-8.1); Sodium 140 mmol/L (136-145)
[2024-07-06] MEDS ORDERED: Acetaminophen 650 MG Suppository PR PRN (22:58)
[2024-07-06] MEDS ORDERED: Acetaminophen 325 MG TAB PO PRN (22:58)
[2024-07-06] MEDS ORDERED: Ondansetron ODT 4 MG TAB PO PRN (22:58)
[2024-07-06] MEDS ORDERED: Glucagon 1 MG/ML KIT IM PRN (23:00)
[2024-07-06] MEDS ORDERED: Dextrose 50% Abboject 50 ML SYRINGE SLOW IVP PRN (23:00)
[2024-07-06] MEDS ORDERED: Dextrose 5% in Water 1,000 ML IV PRN (23:00)
[2024-07-06] MEDS ORDERED: fentaNYL 50 mcg/mL 1 mL Vial ONE (23:24)
[2024-07-07] MEDS: Ondansetron PF 4 MG/2 ML Vial IVP PRN (00:40)
[2024-07-07] MEDS ORDERED: Nystatin Powder 15 GM BOT TOP PRN (01:02)
[2024-07-07] MEDS: Clindamycin/D5W 900 MG in Premix 1 BAG IVPB SCH (01:02)
[2024-07-07] MEDS: Vancomycin (BATCH) 2.5 GM in Premix 1 BAG IVPB SCH (01:03)
[2024-07-07] MEDS: Ketorolac Tromethamine 30 MG (1 mL) VIAL IVP PRN (05:06)
[2024-07-07] MEDS: metroNIDAZOLE 500 MG in Premix 1 BAG IVPB SCH (05:08)
[2024-07-07 05:44] LABS: #Basophils 0.04 10x3/uL (0.0-0.2); %Basophils 0.4 % (0.0-1.0); %Eosinophils 1.4 % (0.0-10.0); %Lymphocytes 28.9 % (21.0-51.0); Hematocrit 30.9 % (36.0-47.0); Hemoglobin 9.8 g/dL (12.0-16.0); Mean Corpuscular HGB CONC 31.7 g/dL (32.0-36.0); Mean Corpuscular Hemoglobin 27.8 pg (27.0-31.0); Mean Corpuscular Volume 87.8 fL (78.0-98.0); Mean Platelet Volume 9.4 fL (7.4-10.4); Platelet Count 309 10x3/uL (130-400); RBC Distribution Width 14.8 % (11.5-14.5); Red Blood Cell (RBC) Count 3.52 mill/uL (4.20-5.40)
[2024-07-07 06:01] LABS: Vancomycin, Random 33.8 ug/mL (See Comment)
[2024-07-07 06:04] LABS: Anion Gap 14 mmol/L (10-20); BUN (Urea Nitrogen) 33 mg/dL (9.8-20.1); Calc. Creatinine Clearance 108 mL/min (70-130); Calcium 8.8 mg/dL (7.8-10.44); Carbon Dioxide 25 mmol/L (23-31); Chloride 105 mmol/L (98-107); Estimated GFR 58; Glucose 99 mg/dL (80-115); Potassium 3.5 mmol/L (3.5-5.1); Sodium 140 mmol/L (136-145)
[2024-07-07] MEDS: Cefepime 2 GM in Sodium Chloride 0.9% 100 ML IVPB SCH (08:58)
[2024-07-07] MEDS: Enoxaparin 40 MG (0.4 mL) SYRINGE SC SCH (08:59)
[2024-07-07] MEDS: Famotidine 20 MG TAB PO SCH (08:59)
[2024-07-07] MEDS ORDERED: Vancomycin 1 GM in Premix 1 BAG IVPB SCH (09:00)
[2024-07-07] MEDS ORDERED: metroNIDAZOLE 500 MG (100 mL) BAG ONE (13:43)
[2024-07-07] MEDS ORDERED: Lidocaine 1% (PF) 30 ML VIAL ONE (13:45)
[2024-07-07] MEDS ORDERED: PROPOFOL 20 ML ONE (13:49)
[2024-07-07] MEDS ORDERED: Lidocaine 2% PF 5 ML VIAL ONE (13:49)
[2024-07-07] MEDS ORDERED: Famotidine/PF 20 mg/2ml Vial ONE (13:58)
[2024-07-07 14:07] VITALS: BMI 45.1
[2024-07-07] MEDS ORDERED: fentaNYL 50 mcg/mL 1 mL Vial ONE (14:22)
[2024-07-07] MEDS ORDERED: Dexamethasone 4 mg/ml Vial ONE (14:25)
[2024-07-07] MEDS ORDERED: Ondansetron PF 4 MG/2 ML Vial ONE (14:25)
[2024-07-07] MEDS: Ketorolac Tromethamine 30 MG (1 mL) VIAL IVP SCH (16:55)
[2024-07-07] MEDS: Insulin Lispro 100 UNIT/ML 10 ML VIAL SC PRN (21:10)
[2024-07-07] MEDS: traMADol HCl 50 MG TAB PO PRN (21:12)
[2024-07-08] MEDS: Vancomycin 1.5 GRAM/300 ML BAG 1.5 GM in Premix 1 BAG IVPB SCH (00:27)
[2024-07-08] MEDS: Insulin Lispro 100 UNIT/ML 10 ML VIAL SC PRN (03:34)
[2024-07-08 06:33] LABS: #Basophils Less than 0.03 10x3/uL (0.0-0.2); #Eosinophils Less than 0.03 10x3/uL (0.0-0.7); %Basophils 0.2 % (0.0-1.0); %Lymphocytes 13.6 % (21.0-51.0); %Neutrophils 77.8 % (42.0-75.0); Hemoglobin 10.3 g/dL (12.0-16.0); Mean Corpuscular HGB CONC 31.2 g/dL (32.0-36.0); Mean Corpuscular Hemoglobin 27.7 pg (27.0-31.0); Mean Corpuscular Volume 88.7 fL (78.0-98.0); Mean Platelet Volume 9.6 fL (7.4-10.4); Platelet Count 363 10x3/uL (130-400); RBC Distribution Width 14.9 % (11.5-14.5); Red Blood Cell (RBC) Count 3.72 mill/uL (4.20-5.40)
[2024-07-08 06:58] LABS: ALT (SGPT) 13 U/L (8-55); AST (SGOT) 19 U/L (5-34); Albumin 2.5 g/dL (3.4-4.8); Alkaline Phosphatase 57 U/L (40-110); Anion Gap 14 mmol/L (10-20); BUN (Urea Nitrogen) 23 mg/dL (9.8-20.1); Bilirubin, Total 0.3 mg/dL (0.2-1.2); Calc. Creatinine Clearance 122 mL/min (70-130); Calcium 8.5 mg/dL (7.8-10.44); Carbon Dioxide 23 mmol/L (23-31); Chloride 108 mmol/L (98-107); Estimated GFR 66; Globulin 4.8 g/dL (2.4-3.5); Glucose 268 mg/dL (80-115); Magnesium 2.3 mg/dL (1.6-2.6); Potassium 4.5 mmol/L (3.5-5.1); Protein, Total 7.3 g/dL (5.8-8.1); Sodium 140 mmol/L (136-145)
[2024-07-09] MEDS: Vancomycin (BATCH) 1.5 GM in Premix 1 BAG IVPB SCH (00:31)
[2024-07-09 06:23] LABS: #Basophils 0.03 10x3/uL (0.0-0.2); %Basophils 0.3 % (0.0-1.0); %Eosinophils 1.6 % (0.0-10.0); %Lymphocytes 33.3 % (21.0-51.0); %Monocytes 8.1 % (0.0-10.0); %Neutrophils 56.4 % (42.0-75.0); Hematocrit 30.9 % (36.0-47.0); Hemoglobin 9.6 g/dL (12.0-16.0); Mean Corpuscular HGB CONC 31.1 g/dL (32.0-36.0); Mean Corpuscular Hemoglobin 27.9 pg (27.0-31.0); Mean Corpuscular Volume 89.8 fL (78.0-98.0); Mean Platelet Volume 9.6 fL (7.4-10.4); Platelet Count 336 10x3/uL (130-400); RBC Distribution Width 15.4 % (11.5-14.5); Red Blood Cell (RBC) Count 3.44 mill/uL (4.20-5.40)
[2024-07-09 06:39] LABS: ALT (SGPT) 13 U/L (8-55); AST (SGOT) 20 U/L (5-34); Albumin 2.4 g/dL (3.4-4.8); Alkaline Phosphatase 49 U/L (40-110); Anion Gap 12 mmol/L (10-20); BUN (Urea Nitrogen) 22 mg/dL (9.8-20.1); Bilirubin, Total 0.2 mg/dL (0.2-1.2); Calc. Creatinine Clearance 132 mL/min (70-130); Carbon Dioxide 24 mmol/L (23-31); Chloride 108 mmol/L (98-107); Estimated GFR 73; Globulin 4.5 g/dL (2.4-3.5); Glucose 206 mg/dL (80-115); Magnesium 2.3 mg/dL (1.6-2.6); Potassium 3.8 mmol/L (3.5-5.1); Protein, Total 6.9 g/dL (5.8-8.1); Sodium 140 mmol/L (136-145)
[2024-07-09] MEDS: traMADol HCl 50 MG TAB PO PRN (09:53)
[2024-07-09] MEDS: HYDROcodone/Acetaminophen 5/325 mg Tablet PO PRN ×2 (13:55→18:25)
[2024-07-10 07:31] LABS: #Basophils 0.03 10x3/uL (0.0-0.2); %Basophils 0.4 % (0.0-1.0); %Eosinophils 2.7 % (0.0-10.0); %Lymphocytes 31.3 % (21.0-51.0); %Monocytes 9.7 % (0.0-10.0); %Neutrophils 55.7 % (42.0-75.0); Hematocrit 33.5 % (36.0-47.0); Hemoglobin 10.6 g/dL (12.0-16.0); Mean Corpuscular HGB CONC 31.6 g/dL (32.0-36.0); Mean Corpuscular Hemoglobin 28.1 pg (27.0-31.0); Mean Corpuscular Volume 88.9 fL (78.0-98.0); Mean Platelet Volume 9.4 fL (7.4-10.4); Platelet Count 346 10x3/uL (130-400); RBC Distribution Width 15.3 % (11.5-14.5); Red Blood Cell (RBC) Count 3.77 mill/uL (4.20-5.40)
[2024-07-10 07:50] LABS: Vancomycin, Random 19.1 ug/mL (See Comment)
[2024-07-10] MEDS: FLU (Fluad Triv) TS24-25 (65UP)/MF59C/PF 45 MCG/0.5 ML Syringe IM ONE (07:51)
[2024-07-10 07:54] LABS: ALT (SGPT) 14 U/L (8-55); AST (SGOT) 27 U/L (5-34); Albumin 2.6 g/dL (3.4-4.8); Alkaline Phosphatase 54 U/L (40-110); Anion Gap 12 mmol/L (10-20); BUN (Urea Nitrogen) 15 mg/dL (9.8-20.1); Bilirubin, Total 0.2 mg/dL (0.2-1.2); Calc. Creatinine Clearance 159 mL/min (70-130); Calcium 8.3 mg/dL (7.8-10.44); Carbon Dioxide 21 mmol/L (23-31); Chloride 109 mmol/L (98-107); Estimated GFR 91; Globulin 4.6 g/dL (2.4-3.5); Glucose 169 mg/dL (80-115); Magnesium 2.3 mg/dL (1.6-2.6); Potassium 3.7 mmol/L (3.5-5.1); Protein, Total 7.2 g/dL (5.8-8.1); Sodium 138 mmol/L (136-145)
[2024-07-10] MEDS: Vancomycin 1 GM in Premix 1 BAG IVPB SCH (12:10)
[2024-07-11 05:32] LABS: #Basophils 0.03 10x3/uL (0.0-0.2); %Basophils 0.4 % (0.0-1.0); %Lymphocytes 38.5 % (21.0-51.0); %Monocytes 11.1 % (0.0-10.0); %Neutrophils 46.5 % (42.0-75.0); Hematocrit 31.1 % (36.0-47.0); Hemoglobin 9.6 g/dL (12.0-16.0); Mean Corpuscular HGB CONC 30.9 g/dL (32.0-36.0); Mean Corpuscular Hemoglobin 27.7 pg (27.0-31.0); Mean Corpuscular Volume 89.9 fL (78.0-98.0); Mean Platelet Volume 9.2 fL (7.4-10.4); Platelet Count 315 10x3/uL (130-400); RBC Distribution Width 15.3 % (11.5-14.5); Red Blood Cell (RBC) Count 3.46 mill/uL (4.20-5.40)
[2024-07-11 06:05] LABS: ALT (SGPT) 16 U/L (8-55); AST (SGOT) 29 U/L (5-34); Albumin 2.4 g/dL (3.4-4.8); Alkaline Phosphatase 53 U/L (40-110); Anion Gap 12 mmol/L (10-20); BUN (Urea Nitrogen) 10 mg/dL (9.8-20.1); Bilirubin, Total 0.2 mg/dL (0.2-1.2); Calc. Creatinine Clearance 143 mL/min (70-130); Carbon Dioxide 22 mmol/L (23-31); Chloride 105 mmol/L (98-107); Estimated GFR 81; Globulin 4.4 g/dL (2.4-3.5); Glucose 328 mg/dL (80-115); Magnesium 2.2 mg/dL (1.6-2.6); Potassium 3.9 mmol/L (3.5-5.1); Protein, Total 6.8 g/dL (5.8-8.1); Sodium 135 mmol/L (136-145)
[2024-07-11] MEDS ORDERED: Lidocaine 1% PF 5 ML VIAL ONE (07:50)
[2024-07-11] MEDS ORDERED: Sodium Bicarbonate 2.5 MEQ/5 ML SDV ONE (07:50)
[2024-07-11] MEDS: Amlodipine 10 MG TAB PO SCH (11:17)
[2024-07-11] MEDS: Aspirin Chewable 81 MG TAB PO SCH ×2 (11:17→16:09)
[2024-07-11] MEDS: Spironolactone 25 MG TAB PO SCH (11:17)
[2024-07-11] MEDS: Sertraline 100 MG TAB PO SCH (11:17)
[2024-07-11] MEDS: Carvedilol 25 MG TAB PO SCH (11:21)
[2024-07-11] MEDS: Gabapentin 300 MG CAP PO SCH (11:22)
[2024-07-11] MEDS: Furosemide 20 MG TAB PO SCH (11:22)
[2024-07-11] MEDS: Polyethylene Glycol 3350 17 GM Packet PO SCH (13:00)
[2024-07-11] MEDS: Insulin Glargine 30 UNITS/0.3 ML VIAL SC SCH (16:09)
[2024-07-11] MEDS: Mometasone 200 MCG/Formoterol 5 MCG 120 PUFF INHALER INH SCH (18:34)
[2024-07-11] MEDS: Atorvastatin Calcium 40 MG TAB PO SCH (21:44)
[2024-07-12 06:30] LABS: #Basophils 0.04 10x3/uL (0.0-0.2); %Basophils 0.5 % (0.0-1.0); %Eosinophils 3.5 % (0.0-10.0); %Lymphocytes 36.9 % (21.0-51.0); %Neutrophils 48.7 % (42.0-75.0); Hematocrit 31.9 % (36.0-47.0); Mean Corpuscular HGB CONC 31.3 g/dL (32.0-36.0); Mean Corpuscular Hemoglobin 28.2 pg (27.0-31.0); Mean Corpuscular Volume 89.9 fL (78.0-98.0); Mean Platelet Volume 9.6 fL (7.4-10.4); Platelet Count 298 10x3/uL (130-400); RBC Distribution Width 15.3 % (11.5-14.5); Red Blood Cell (RBC) Count 3.55 mill/uL (4.20-5.40)
[2024-07-12 06:48] LABS: ALT (SGPT) 18 U/L (8-55); AST (SGOT) 28 U/L (5-34); Albumin 2.5 g/dL (3.4-4.8); Alkaline Phosphatase 56 U/L (40-110); Anion Gap 12 mmol/L (10-20); BUN (Urea Nitrogen) 9 mg/dL (9.8-20.1); Bilirubin, Total 0.3 mg/dL (0.2-1.2); Calc. Creatinine Clearance 151 mL/min (70-130); Calcium 7.8 mg/dL (7.8-10.44); Carbon Dioxide 21 mmol/L (23-31); Chloride 109 mmol/L (98-107); Estimated GFR 86; Globulin 3.7 g/dL (2.4-3.5); Glucose 289 mg/dL (80-115); Magnesium 2.2 mg/dL (1.6-2.6); Potassium 4.4 mmol/L (3.5-5.1); Protein, Total 6.2 g/dL (5.8-8.1); Sodium 138 mmol/L (136-145)
[2024-07-12 07:04] LABS: Vancomycin, Random 20.8 ug/mL (See Comment)
[2024-07-12] MEDS: Amlodipine 10 MG TAB PO SCH (08:21)
[2024-07-12] MEDS: Insulin Glargine 30 UNITS/0.3 ML VIAL SC SCH (08:24)
[2024-07-12] MEDS: Polyethylene Glycol 3350 17 GM Packet PO SCH (08:26)
[2024-07-13 05:28] LABS: #Basophils 0.04 10x3/uL (0.0-0.2); %Basophils 0.4 % (0.0-1.0); %Eosinophils 3.2 % (0.0-10.0); %Lymphocytes 36.2 % (21.0-51.0); %Monocytes 9.3 % (0.0-10.0); %Neutrophils 50.5 % (42.0-75.0); Hematocrit 31.2 % (36.0-47.0); Hemoglobin 9.9 g/dL (12.0-16.0); Mean Corpuscular HGB CONC 31.7 g/dL (32.0-36.0); Mean Corpuscular Hemoglobin 28.3 pg (27.0-31.0); Mean Corpuscular Volume 89.1 fL (78.0-98.0); Mean Platelet Volume 10.1 fL (7.4-10.4); Platelet Count 286 10x3/uL (130-400); RBC Distribution Width 15.6 % (11.5-14.5)
[2024-07-13] MEDS: Insulin Lispro 100 UNIT/ML 10 ML VIAL SC PRN ×2 (05:28→21:31)
[2024-07-13 06:15] LABS: ALT (SGPT) 18 U/L (8-55); AST (SGOT) 36 U/L (5-34); Albumin 2.4 g/dL (3.4-4.8); Alkaline Phosphatase 53 U/L (40-110); Anion Gap 14 mmol/L (10-20); BUN (Urea Nitrogen) 10 mg/dL (9.8-20.1); Bilirubin, Total 0.2 mg/dL (0.2-1.2); Calc. Creatinine Clearance 132 mL/min (70-130); Calcium 7.9 mg/dL (7.8-10.44); Carbon Dioxide 22 mmol/L (23-31); Chloride 104 mmol/L (98-107); Estimated GFR 73; Globulin 4.1 g/dL (2.4-3.5); Glucose 336 mg/dL (80-115); Potassium 4.2 mmol/L (3.5-5.1); Protein, Total 6.5 g/dL (5.8-8.1); Sodium 136 mmol/L (136-145)
[2024-07-13] MEDS ORDERED: HUMULIN R U SC SCH ×2 (08:00)
[2024-07-13] MEDS: Insulin Glargine 30 UNITS/0.3 ML VIAL SC SCH ×2 (12:59→21:28)
[2024-07-13] MEDS: metFORMIN 500 MG TAB PO SCH (16:42)
[2024-07-14 06:54] LABS: #Basophils 0.03 10x3/uL (0.0-0.2); %Basophils 0.3 % (0.0-1.0); %Lymphocytes 34.5 % (21.0-51.0); %Monocytes 9.1 % (0.0-10.0); %Neutrophils 52.9 % (42.0-75.0); Hematocrit 32.6 % (36.0-47.0); Hemoglobin 10.3 g/dL (12.0-16.0); Mean Corpuscular HGB CONC 31.6 g/dL (32.0-36.0); Mean Corpuscular Hemoglobin 28.1 pg (27.0-31.0); Mean Corpuscular Volume 89.1 fL (78.0-98.0); Mean Platelet Volume 10.1 fL (7.4-10.4); Platelet Count 289 10x3/uL (130-400); RBC Distribution Width 15.9 % (11.5-14.5); Red Blood Cell (RBC) Count 3.66 mill/uL (4.20-5.40)
[2024-07-14 07:19] LABS: Hemoglobin A1c 7.2 % (4.0-6.0)
[2024-07-14 07:28] LABS: Anion Gap 13 mmol/L (10-20); BUN (Urea Nitrogen) 11 mg/dL (9.8-20.1); CK (CPK) 474 U/L (29-168); Calc. Creatinine Clearance 135 mL/min (70-130); Calcium 8.2 mg/dL (7.8-10.44); Carbon Dioxide 25 mmol/L (23-31); Chloride 106 mmol/L (98-107); Estimated GFR 75; Glucose 218 mg/dL (80-115); Potassium 4.1 mmol/L (3.5-5.1); Sodium 140 mmol/L (136-145)
[2024-07-14] MEDS: Amlodipine 10 MG TAB PO SCH (08:18)
[2024-07-14 20:00] VITALS: BP 130/70; TEMP 97.3
== END 2024-07-14 20:26 | DRG 617 ==
LOC: ERS 20:53 → T4-A 23:01
PROVIDERS: ADMIT Internal Medicine; ATTEND Family Medicine
PROC: 0Y6Q0Z0 Detachment at Left 1st Toe, Complete, Open Approach (ICD-10-PCS; principal; 2024-07-07)
PROC: 02HV33Z Insertion of Infusion Device into Superior Vena Cava, Percutaneous Approach (ICD-10-PCS; 2024-07-11)
DX: E11.69 Type 2 diabetes mellitus with other specified complication (principal); I50.32 Chronic diastolic (congestive) heart failure; M00.9 Pyogenic arthritis, unspecified; M86.8X7 Other osteomyelitis, ankle and foot; R78.81 Bacteremia; Z68.42 Body mass index [BMI] 45.0-49.9, adult; J44.9 Chronic obstructive pulmonary disease, unspecified; E11.42 Type 2 diabetes mellitus with diabetic polyneuropathy; M19.90 Unspecified osteoarthritis, unspecified site; I11.0 Hypertensive heart disease with heart failure; E66.9 Obesity, unspecified; G47.33 Obstructive sleep apnea (adult) (pediatric); B95.62 Methicillin resistant Staphylococcus aureus infection as the cause of diseases classified elsewhere; E78.5 Hyperlipidemia, unspecified; Z79.890 Hormone replacement therapy; Z88.0 Allergy status to penicillin; Z88.2 Allergy status to sulfonamides; Z88.5 Allergy status to narcotic agent; Z79.4 Long term (current) use of insulin; Z79.891 Long term (current) use of opiate analgesic; Z79.899 Other long term (current) drug therapy
CPT/HCPCS: 36415; 36416; 36572; 80048; 80053; 80202; 82550; 83036; 83605; 83735; 83880; 85025; 86141; 87040; 87070; 87077; 87149; 87186; 87205; 88305; 96374; 96375; 97139; C1751; J0692; J1100; J1650; J1815; J1885; J2405; J2704; J3010; J3370; J3490